=== PATIENT | female | born 1990 | race Caucasian/White ===

== ENCOUNTER 2020-08-10 08:08 | Outpatient (RCR) | payer OTHER, SELFPAY | END 2020-09-02 12:19 | disposition home or self-care (01) | LOC: HO.WCC 08:08 | PROVIDERS: Visit Provider Physician Assistant | DX: E11.628 Type 2 diabetes mellitus with other skin complications (principal); T21.22XD Burn of second degree of abdominal wall, subsequent encounter; T31.0 Burns involving less than 10% of body surface; E11.65 Type 2 diabetes mellitus with hyperglycemia | CPT/HCPCS: 99212; 99213 ==

== ENCOUNTER → 2020-09-11 11:12 | Outpatient (BNVA) | payer OTHER, SELFPAY | PROVIDERS: Visit Provider Physician Assistant | DX: E66.01 Morbid (severe) obesity due to excess calories (principal); E11.9 Type 2 diabetes mellitus without complications; Z68.42 Body mass index [BMI] 45.0-49.9, adult | CPT/HCPCS: 99202 ==

== ENCOUNTER 2020-09-17 11:27 | Outpatient (REF) | payer OTHER, SELFPAY ==
--- NOTE | ~2020-09-17 | XR_ITS ---
EXAMINATION: XR CHEST CLINICAL INFORMATION: Obesity. COMPARISON: None TECHNIQUE: 2 views of the chest were obtained. FINDINGS: No significant abnormality is noted involving the heart, lungs, mediastinum, bony thorax or soft tissues. XR/XR chest 2V IMPRESSION: Unremarkable examination.
--- NOTE | 2020-09-17 11:32 | ECG_ITS ---
Test Reason : E66.01 Blood Pressure : / mmHG Vent. Rate : 069 BPM Atrial Rate : 069 BPM P-R Int : 166 ms QRS Dur : 082 ms QT Int : 394 ms P-R-T Axes : 033 032 033 degrees QTc Int : 422 ms Normal sinus rhythm with sinus arrhythmia Normal ECG No previous ECGs available Referred By: Maame Nails Electronically Signed By:ROQUE DIZA
[2020-09-17 12:15] LABS: MANUAL DIFF FLAG NO
[2020-09-17 12:21] LABS: Basophils Percent Auto 0.2 % (0-2); Eosinophils Absolute Auto 0.2 X10*3/uL (0.0-0.4); Eosinophils Percent Auto 1.9 % (0-4); Hematocrit 34.4 % (37-47); Hemoglobin 10.2 g/dl (12.0-16.0); Imm Gran Abs Auto 0.03 X10*3/uL (0.00-0.03); Imm Gran Pct Auto 0.4 % (0.0-0.4); Lymphocytes Absolute Auto 1.9 X10*3/uL (1.2-4.9); Lymphocytes Percent Auto 23.7 % (20-40); Mean Corpuscular HGB Conc 29.7 g/dl (31.0-35.0); Mean Corpuscular Hemoglobin 21.9 pg (27.0-33.0); Mean Corpuscular Volume 73.8 fL (80-98); Monocytes Absolute Auto 0.4 X10*3/uL (0.1-1.2); Monocytes Percent Auto 4.8 % (2-11); Neutrophils Absolute Auto 5.6 X10*3/uL (2.0-8.3); Platelet Count 247 X10*3/uL (160-400); Red Blood Count 4.66 X10*6/uL (4.20-5.50); Red Cell Distribution Width 17.1 % (11.0-16.0); White Blood Count 8.1 X10*3/uL (4.8-10.8)
[2020-09-17 12:31] LABS: Estimated Average Glucose 134 mg/dL; Hemoglobin A1c % 6.3 %
[2020-09-17 12:45] LABS: Alanine Aminotransferase 20 U/L (0-31); Albumin Level 4.5 g/dL (3.5-5.0); Alkaline Phosphatase 163 U/L (39-117); Anion Gap 11 (12-20); Aspartate Amino Transferase 17 U/L (5-31); Bilirubin Total 0.3 mg/dL (0.0-1.0); Blood Urea Nitrogen 11 mg/dL (9-16); C Reactive Protein 2.73 mg/dL (< or = 0.50); Calcium 9.2 mg/dL (8.4-10.2); Carbon Dioxide 24 mmol/L (22-29); Chloride 106 mmol/L (96-108); Cholesterol 185 mg/dL; Estimated Glomerular Filt Rate > 60; Glucose Random 142 mg/dL (60-115); HDL Cholesterol 31 mg/dL; Iron 18 mcg/dL (30-160); LDL Cholesterol Calculated 128 mg/dl; Percent Iron Saturation 4 % (15-50); Potassium 4.4 mmol/L (3.3-5.1); Sodium 137 mmol/L (135-145); Total Iron Binding Capacity 424 mcg/dL (228-428); Total Protein 7.6 g/dL (6.5-8.0); Triglycerides 134 mg/dL; Unsaturated Iron Binding 406 ug/dL
[2020-09-17 13:06] LABS: Ferritin 23 ng/mL (10-122); Vitamin D 25-OH Total 26.8 ng/mL (>30)
[2020-09-17 13:24] LABS: Folate 15.6 ng/mL (> or = 4.0); Vitamin B12 315 pg/mL (200-900)
[2020-09-18 11:21] LABS: Insulin Level Total 15.5 uIU/mL
[2020-09-18 14:11] LABS: Calcium (PTHI) 9.5 mg/dL (8.6-10.2); PTHI 102 pg/mL (14-64)
[2020-09-20 17:51] LABS: Zinc 81 mcg/dL (60-130)
[2020-09-23 01:27] LABS: Vitamin A 39 mcg/dL (38-98)
[2020-09-23 10:47] LABS: Vitamin B1 7 nmol/L (8-30)
== END 2020-09-17 11:28 | disposition home or self-care (01) ==
LOC: HO.LAB 11:27
PROVIDERS: Visit Provider Physician Assistant
DX: E66.01 Morbid (severe) obesity due to excess calories (principal)
CPT/HCPCS: 36415; 71046; 80053; 80061; 82306; 82607; 82728; 82746; 83036; 83525; 83540; 83970; 84425; 84443; 84590; 84630; 85025; 86140; 93005

== ENCOUNTER 2020-09-29 09:29 | Outpatient (REF) | payer OTHER, SELFPAY ==
[2020-09-30 14:02] LABS: H Pylori Breath Test NOT DETECTED (NOT DETECTED)
== END 2020-09-29 09:30 | disposition home or self-care (01) ==
LOC: CF 09:29
PROVIDERS: Visit Provider Physician Assistant
DX: E66.01 Morbid (severe) obesity due to excess calories (principal)
CPT/HCPCS: 83013; 99211

== ENCOUNTER → 2020-10-01 08:09 | Outpatient (BNVA) | payer OTHER, SELFPAY | PROVIDERS: Visit Provider Physician Assistant ==

== ENCOUNTER → 2020-10-06 08:15 | Outpatient (BNVA) | payer OTHER, SELFPAY | PROVIDERS: Visit Provider Dietitian, Registered | DX: E66.01 Morbid (severe) obesity due to excess calories (principal); Z68.41 Body mass index [BMI] 40.0-44.9, adult | CPT/HCPCS: 97802 ==

== ENCOUNTER → 2020-10-16 13:46 | Outpatient (BNVA) | payer OTHER, SELFPAY | PROVIDERS: Visit Provider Surgery | DX: E66.01 Morbid (severe) obesity due to excess calories (principal); Z68.41 Body mass index [BMI] 40.0-44.9, adult | CPT/HCPCS: 99212 ==

== ENCOUNTER → 2020-11-12 15:05 | Outpatient (BNVA) | payer OTHER, SELFPAY | PROVIDERS: Visit Provider Surgery | DX: E66.01 Morbid (severe) obesity due to excess calories (principal); E11.9 Type 2 diabetes mellitus without complications; Z68.41 Body mass index [BMI] 40.0-44.9, adult | CPT/HCPCS: 99212 ==

== ENCOUNTER → 2020-11-27 08:26 | Outpatient (BNVA) | payer OTHER, SELFPAY | PROVIDERS: Visit Provider Dietitian, Registered | DX: E66.01 Morbid (severe) obesity due to excess calories (principal); Z68.41 Body mass index [BMI] 40.0-44.9, adult | CPT/HCPCS: 97803 ==

== ENCOUNTER → 2020-12-14 12:08 | Outpatient (BNVA) | payer OTHER, SELFPAY | PROVIDERS: Visit Provider Physician Assistant ==

== ENCOUNTER → 2020-12-28 09:24 | Outpatient (BNVA) | payer OTHER, SELFPAY | PROVIDERS: Visit Provider Surgery | DX: E66.01 Morbid (severe) obesity due to excess calories (principal); E11.9 Type 2 diabetes mellitus without complications; Z68.41 Body mass index [BMI] 40.0-44.9, adult | CPT/HCPCS: 99212 ==

== ENCOUNTER → 2021-01-01 13:31 | Outpatient (BNVA) | payer OTHER, SELFPAY | PROVIDERS: Visit Provider Physician Assistant ==

== ENCOUNTER 2021-01-06 10:11 | Outpatient (REF) | payer OTHER, SELFPAY ==
--- NOTE | ~2021-01-06 | US_ITS ---
EXAMINATION: US COMPLETE ABDOMEN WITH LIVER ELASTOGRAPHY CLINICAL INFORMATION: Morbid obesity. COMPARISON: None. TECHNIQUE: Real-time imaging of the abdominal viscera. Noninvasive ultrasound liver fibrosis assessment is performed using Juan Jose ElastPQ point quantification shear wave elastography (pSWE) with a C5-2 MHz transducer. Multiple elastography samples are obtained. FINDINGS: PANCREAS: Normal. The visualized pancreatic head and body are normal in appearance. The remainder of the pancreas is obscured from visualization by the overlying bowel gas. ABDOMINAL AORTA: The proximal, middle, and distal aortic segments are normal in caliber. INFERIOR VENA CAVA: Visualized portions are normal. LIVER: The liver demonstrates normal size, contour and increased echogenicity. No focal lesion or intrahepatic biliary duct dilatation. The right lobe measures 19.2 cm in length. The left lobe measures 9.8 cm in length. Portal flow is towards the liver (hepatopetal). Shear wave liver elastography median stiffness is 1.31 m/s (reference: normal median stiffness is 1.3 m/s or less). IQR/median stiffness to assess sampling precision is 0.12 (reference: good quality data set is IQR/median stiffness of 0.15 or less). GALLBLADDER: Normal. The gallbladder is physiologically distended without evidence of stones, sludge, polyps, wall thickening or pericholecystic fluid. COMMON BILE DUCT: Normal in caliber measuring 0.6 cm in diameter. RIGHT KIDNEY: Normal. No hydronephrosis. No renal calculi or focal parenchymal lesions. The kidney measures 12.4 cm in maximum dimension. LEFT KIDNEY: Normal. No hydronephrosis. No renal calculi or focal parenchymal lesions. The kidney measures 12.1 cm in maximum dimension. SPLEEN: Normal. The spleen measures 16.6 cm in maximum dimension. FREE FLUID: None. US/US abdomen comp w elastography IMPRESSION: 1. There is hepatosplenomegaly. 2. There is generalized increase in hepatic echotexture, consistent with fatty infiltration or hepatocellular disease. Please correlate clinically. No focal hepatic mass or intrahepatic biliary dilatation is seen. 3. Liver elastography: In the absence of other known clinical signs, measurements rule out compensated advanced chronic liver disease. If there are known clinical signs, further testing may be needed for confirmation. REFERENCE: Society of Radiologists in Ultrasound Liver Stiffness Thresholds (2020): LIVER STIFFNESS THRESHOLDS: *Liver Stiffness equal or less than 1.3 m/s: High probability of being normal. *Liver Stiffness less than 1.7 m/s: In the absence of other known clinical signs, rules out compensated advanced chronic liver disease. *Liver Stiffness 1.7-2.1 m/s: Suggestive of compensated advanced chronic liver disease but need further test for confirmation. *Liver Stiffness over 2.1 m/s: Rules in compensated advanced chronic liver disease. *Liver Stiffness over 2.4 m/s: Suggestive of clinically significant portal hypertension. QUALITY OF DATA SET: *IQR/Median value equal or less than 0.15 implies a quality data set. *IQR/Median value over 0.15 implies a poor quality data set. SIGNIFICANT CHANGE FROM PRIOR EXAM: Significant change if liver stiffness measurement is 10% or greater from prior exam. OTHER CONSIDERATIONS: The stage of liver fibrosis may be overestimated in the setting of acute hepatitis, liver inflammation, elevated liver function tests, hepatic vascular congestion, obstructive cholestasis, non-fasting state, and infiltrative diseases such as amyloidosis and lymphoma. In some patients with NAFLD, the liver stiffness thresholds for compensated advanced chronic liver disease may be lower. In causes other than viral hepatitis and NAFLD, liver stiffness thresholds are not well established.
== END 2021-01-06 10:12 | disposition home or self-care (01) ==
LOC: HO.US 10:11
PROVIDERS: Visit Provider Physician Assistant
DX: Z01.818 Encounter for other preprocedural examination (principal); E66.01 Morbid (severe) obesity due to excess calories; K21.9 Gastro-esophageal reflux disease without esophagitis
CPT/HCPCS: 76705; 76981

== ENCOUNTER 2021-01-08 09:59 | Outpatient (REF) | payer OTHER, SELFPAY ==
--- NOTE | ~2021-01-08 | FL_ITS ---
EXAMINATION: XR GI SERIES CLINICAL INFORMATION: Obesity COMPARISON: None TECHNIQUE: Upper GI was performed using thin and thick barium and effervescent granules. FINDINGS: Esophageal motility is normal. No hernia or reflux is seen. There is slightly delayed gastric emptying. Stomach and duodenum are otherwise normal. No fold thickening, mass, ulcer or stricture is seen. FLUOROSCOPY TIME: 0.6 minutes DOSE AREA PRODUCT: 8 Bertrand per centimeter squared. 17 saved fluoroscopic images and 3 overhead images FL/FL upper GI series IMPRESSION: Slightly delayed gastric emptying otherwise unremarkable exam.
== END 2021-01-08 10:00 | disposition home or self-care (01) ==
LOC: HO.XRAY 09:59
PROVIDERS: Visit Provider Physician Assistant
DX: Z01.818 Encounter for other preprocedural examination (principal); E66.01 Morbid (severe) obesity due to excess calories; Z68.41 Body mass index [BMI] 40.0-44.9, adult; K21.9 Gastro-esophageal reflux disease without esophagitis
CPT/HCPCS: 74240

== ENCOUNTER 2021-01-12 08:14 | Inpatient (IN) | payer OTHER, SELFPAY ==
[2021-01-06 09:18] VITALS: BMI 40.1
[2021-01-06 11:13] LABS: MANUAL DIFF FLAG NO
[2021-01-06 11:58] LABS: Basophils Percent Auto 0.3 % (0-2); Eosinophils Absolute Auto 0.1 X10*3/uL (0.0-0.4); Eosinophils Percent Auto 1.1 % (0-4); Hematocrit 36.1 % (37-47); Hemoglobin 10.8 g/dl (12.0-16.0); Imm Gran Abs Auto 0.02 X10*3/uL (0.00-0.03); Imm Gran Pct Auto 0.3 % (0.0-0.4); Lymphocytes Absolute Auto 1.6 X10*3/uL (1.2-4.9); Lymphocytes Percent Auto 24.6 % (20-40); Mean Corpuscular HGB Conc 29.9 g/dl (31.0-35.0); Mean Corpuscular Hemoglobin 23.4 pg (27.0-33.0); Mean Corpuscular Volume 78.1 fL (80-98); Mean Platelet Volume 11.8 fL (9.4-12.3); Monocytes Absolute Auto 0.3 X10*3/uL (0.1-1.2); Monocytes Percent Auto 4.9 % (2-11); Neutrophils Absolute Auto 4.5 X10*3/uL (2.0-8.3); Neutrophils Percent Auto 68.8 % (45-73); Platelet Count 193 X10*3/uL (160-400); Red Blood Count 4.62 X10*6/uL (4.20-5.50); Red Cell Distribution Width 14.8 % (11.0-16.0); White Blood Count 6.6 X10*3/uL (4.8-10.8)
[2021-01-06 12:15] LABS: Prothrombin Time 11.8 SEC (9.9-13.0)
[2021-01-06 12:17] LABS: Partial Thromboplastin Time 34.9 SEC (24.1-38.0)
[2021-01-06 12:22] LABS: Alanine Aminotransferase 11 U/L (0-31); Albumin Level 4.1 g/dL (3.5-5.0); Alkaline Phosphatase 143 U/L (39-117); Anion Gap 12 (12-20); Aspartate Amino Transferase 12 U/L (5-31); Bilirubin Total 0.6 mg/dL (0.0-1.0); Blood Urea Nitrogen 9 mg/dL (9-16); C Reactive Protein 1.55 mg/dL (< or = 0.50); Calcium 9.2 mg/dL (8.4-10.2); Carbon Dioxide 26 mmol/L (22-29); Chloride 106 mmol/L (96-108); Cholesterol 189 mg/dL; Creatinine Clr Calc Pharmacy 121.4; Estimated Average Glucose 137 mg/dL; Estimated Glomerular Filt Rate > 60; Glucose Random 127 mg/dL (60-115); HDL Cholesterol 30 mg/dL; Hemoglobin A1C 131.2083 umol/L; Hemoglobin A1c % 6.4 %; Iron 34 mcg/dL (30-160); LDL Cholesterol Calculated 132 mg/dl; Percent Iron Saturation 9 % (15-50); Potassium 4.5 mmol/L (3.3-5.1); Sodium 139 mmol/L (135-145); Total Iron Binding Capacity 375 mcg/dL (228-428); Triglycerides 138 mg/dL; Unsaturated Iron Binding 341 ug/dL
[2021-01-06 12:38] LABS: TSH reflex Free T4 1.69 uIU/mL (0.32-4.0)
--- NOTE | 2021-01-08 08:34 | HO.ANESPROP2 ---
Documented by User: Michelle Masters NP 01/08/21 08:35 HPI - Anesthesia Eval Consult details Narrative: 30yo F for Gastrectomy Sleeve, EGD, Poss Diaphragmatic Hernia, Poss Ventral Hernia, Poss open PMFSH Active Problems Active Problems: All Active Problems (Updated 01/06/21 @ 09:15 by Alejandra Moya RN) Morbid obesity (Acute) Diabetes mellitus (Acute) Anemia (Acute) Vitamin D deficiency (Acute) Adjustment disorder, unspecified (Acute) BMI 40.0-44.9, adult (Acute) Vitamin B1 deficiency (Acute) Past Medical History Medical History Anemia COVID-19 vaccine series completed Hx of diabetes mellitus Obesity Family History Family History Mother Hypertension Anxiety Father No problems noted. Brother No problems noted. Brother No problems noted. Brother No problems noted. Sister No problems noted. Son No problems noted. Son No problems noted. Son No problems noted. Daughter No problems noted. Daughter No problems noted. Daughter No problems noted. Surgical History Surgical History History of bilateral tubal ligation Hx of cholecystectomy Hx of emergency section Social History Social History Are you a primary nurse care manager to a significant other at home: No Do you presently have visiting nurse or other home services: No Alcohol intake: current Alcohol intake frequency: holidays/special occasions only Patient Tobacco Use Status: Never used Tobacco Use of substances other than those prescribed or required for medical reasons: No Have you been hit, kicked, punched, or otherwise hurt by someone within the past year? If so, by whom?: No Are you DNR?: No Advance Directives: No Advance Directives Information Provided: Yes (Mailed out w/ pre-op instructions) Advance Directives on File: No Recently lost weight without trying: No How much weight loss: 24-33 pounds Eating poorly because of decreased appetite: No Nutrition screen score: 3 Nutrition Risks: No Nutritional Risk Patient : No FDLMP: 12/20/20 : No Poor oral hygiene: No Meds Allergies Allergy/AdvReac Type Severity Reaction Status Date / Time oxycodone Allergy Severe Itching Verified 01/06/21 09:15 Home Medications Medication Instructions Recorded Confirmed Last Taken Type metformin 500 mg tablet 500 mg PO BID 09/08/20 01/06/21 Unknown History Exam Exam Date and Time: January 08, 2021 0834 Height,Weight and Vital Signs: Height 5 ft 4 in Weight 106.141 kg Pertinent Lab Results Pertinent Lab Results: Laboratory Tests 01/06/21 01/06/21 01/06/21 11:06 11:11 11:11 WBC 6.6 RBC 4.62 Hgb 10.8 L Hct 36.1 L MCV 78.1 L MCH 23.4 L MCHC 29.9 L RDW 14.8 Plt Count 193 MPV 11.8 Immature Gran % (Auto) 0.3 Neut % (Auto) 68.8 Lymph % (Auto) 24.6 [place] % (Auto) 4.9 Eos % (Auto) 1.1 Baso % (Auto) 0.3 Lymph # (Auto) 1.6 [place] # (Auto) 0.3 Eos # (Auto) 0.1 Baso # (Auto) 0.0 Abs Immat Gran (auto) 0.02 Absolute Neuts (auto) 4.5 Absolute Nucleated RBC 0.000 Nucleated RBC % (auto) 0.0 PT INR APTT Sodium 139 Potassium 4.5 Chloride 106 Carbon Dioxide 26 Anion Gap 12 BUN 9 Creatinine 0.82 Estim Creat Clear Calc 121.4 Estimated GFR > 60 Random Glucose 127 H Estimat Average Glucose Hemoglobin A1c % Calcium 9.2 Iron 34 TIBC 375 % Saturation 9 L Unsat Iron Binding 341 Total Bilirubin 0.6 AST 12 ALT 11 Alkaline Phosphatase 143 H C-Reactive Protein 1.55 H Total Protein 7.0 Albumin 4.1 Triglycerides 138 Cholesterol 189 LDL Cholesterol, Calc 132 HDL Cholesterol 30 25-OH Vitamin D Total 25.0 TSH Blood Type O Positive Antibody Screen NEGATIVE 01/06/21 01/06/21 01/06/21 11:11 11:11 11:11 WBC RBC Hgb Hct MCV MCH MCHC RDW Plt Count MPV Immature Gran % (Auto) Neut % (Auto) Lymph % (Auto) [place] % (Auto) Eos % (Auto) Baso % (Auto) Lymph # (Auto) [place] # (Auto) Eos # (Auto) Baso # (Auto) Abs Immat Gran (auto) Absolute Neuts (auto) Absolute Nucleated RBC Nucleated RBC % (auto) PT 11.8 INR 1.0 APTT 34.9 Sodium Potassium Chloride Carbon Dioxide Anion Gap BUN Creatinine Estim Creat Clear Calc Estimated GFR Random Glucose Estimat Average Glucose 137 Hemoglobin A1c % 6.4 Calcium Iron TIBC % Saturation Unsat Iron Binding Total Bilirubin AST ALT Alkaline Phosphatase C-Reactive Protein Total Protein Albumin Triglycerides Cholesterol LDL Cholesterol, Calc HDL Cholesterol 25-OH Vitamin D Total TSH 1.69 Blood Type Antibody Screen Narrative Narrative: EKG 09/2020 Vent. Rate : 069 BPM ? ? Atrial Rate : 069 BPM ?? P-R Int : 166 ms? QRS Dur : 082 ms ? ? QT Int : 394 ms ? ? ? P-R-T Axes : 033 032 033 degrees ?? QTc Int : 422 ms ? Normal sinus rhythm with sinus arrhythmia Normal ECG No previous ECGs available Assessment and Plan Assessment Anesthesia Assessment: Chart Reviewed Documented by User: Fallon Alexander MD 01/12/21 10:14 [facility] Active Problems Active Problems: All Active Problems (Updated 01/06/21 @ 09:15 by Alejandra Moya RN) Morbid obesity (Acute). Denies h/o JACKY Diabetes mellitus (Acute) Anemia (Acute) Vitamin D deficiency (Acute) Adjustment disorder, unspecified (Acute) BMI 40.0-44.9, adult (Acute) Vitamin B1 deficiency (Acute) Past Medical History Medical History Anemia COVID-19 vaccine series completed Hx of diabetes mellitus Obesity Family History Family History Mother Hypertension Anxiety Father No problems noted. Brother No problems noted. Brother No problems noted. Brother No problems noted. Sister No problems noted. Son No problems noted. Son No problems noted. Son No problems noted. Daughter No problems noted. Daughter No problems noted. Daughter No problems noted. Family history of problems with anesthesia: No Surgical History Surgical History History of bilateral tubal ligation Hx of cholecystectomy Hx of emergency section History of Problems with Anesthesia: No Social History Social History Are you a primary nurse care manager to a significant other at home: No Do you presently have visiting nurse or other home services: No Alcohol intake: current Alcohol intake frequency: holidays/special occasions only Patient Tobacco Use Status: Never used Tobacco Use of substances other than those prescribed or required for medical reasons: No Have you been hit, kicked, punched, or otherwise hurt by someone within the past year? If so, by whom?: No Are you DNR?: No Advance Directives: No Advance Directives Information Provided: Yes (Mailed out w/ pre-op instructions) Advance Directives on File: No Recently lost weight without trying: No How much weight loss: 24-33 pounds Eating poorly because of decreased appetite: No Nutrition screen score: 3 Nutrition Risks: No Nutritional Risk Patient : No FDLMP: 12/20/20 : No Poor oral hygiene: No Meds Allergies Allergy/AdvReac Type Severity Reaction Status Date / Time oxycodone Allergy Severe Itching Verified 01/06/21 09:15 Home Medications Medication Instructions Recorded Confirmed Last Taken Type metformin 500 mg tablet 500 mg PO BID 09/08/20 01/06/21 Unknown History Exam Height,Weight and Vital Signs: Height 5 ft 4 in Weight 106.141 kg Vital Signs Temp Pulse Resp BP Pulse Ox 01/12/21 08:23 98 F 78 18 122/67 98 Pertinent Lab Results Pertinent Lab Results: Laboratory Tests 01/06/21 01/06/21 01/06/21 11:06 11:11 11:11 WBC 6.6 RBC 4.62 Hgb 10.8 L Hct 36.1 L MCV 78.1 L MCH 23.4 L MCHC 29.9 L RDW 14.8 Plt Count 193 MPV 11.8 Immature Gran % (Auto) 0.3 Neut % (Auto) 68.8 Lymph % (Auto) 24.6 [place] % (Auto) 4.9 Eos % (Auto) 1.1 Baso % (Auto) 0.3 Lymph # (Auto) 1.6 [place] # (Auto) 0.3 Eos # (Auto) 0.1 Baso # (Auto) 0.0 Abs Immat Gran (auto) 0.02 Absolute Neuts (auto) 4.5 Absolute Nucleated RBC 0.000 Nucleated RBC % (auto) 0.0 PT INR APTT Sodium 139 Potassium 4.5 Chloride 106 Carbon Dioxide 26 Anion Gap 12 BUN 9 Creatinine 0.82 Estim Creat Clear Calc 121.4 Estimated GFR > 60 Random Glucose 127 H Estimat Average Glucose Hemoglobin A1c % Calcium 9.2 Iron 34 TIBC 375 % Saturation 9 L Unsat Iron Binding 341 Total Bilirubin 0.6 AST 12 ALT 11 Alkaline Phosphatase 143 H C-Reactive Protein 1.55 H Total Protein 7.0 Albumin 4.1 Triglycerides 138 Cholesterol 189 LDL Cholesterol, Calc 132 HDL Cholesterol 30 25-OH Vitamin D Total 25.0 TSH Blood Type O Positive Antibody Screen NEGATIVE 01/06/21 01/06/21 01/06/21 11:11 11:11 11:11 WBC RBC Hgb Hct MCV MCH MCHC RDW Plt Count MPV Immature Gran % (Auto) Neut % (Auto) Lymph % (Auto) [place] % (Auto) Eos % (Auto) Baso % (Auto) Lymph # (Auto) [place] # (Auto) Eos # (Auto) Baso # (Auto) Abs Immat Gran (auto) Absolute Neuts (auto) Absolute Nucleated RBC Nucleated RBC % (auto) PT 11.8 INR 1.0 APTT 34.9 Sodium Potassium Chloride Carbon Dioxide Anion Gap BUN Creatinine Estim Creat Clear Calc Estimated GFR Random Glucose Estimat Average Glucose 137 Hemoglobin A1c % 6.4 Calcium Iron TIBC % Saturation Unsat Iron Binding Total Bilirubin AST ALT Alkaline Phosphatase C-Reactive Protein Total Protein Albumin Triglycerides Cholesterol LDL Cholesterol, Calc HDL Cholesterol 25-OH Vitamin D Total TSH 1.69 Blood Type Antibody Screen Laboratory Results - last 24 hr 01/12/21 01/12/21 08:18 08:32 POC Glucose 96 COVID-19 (TANISHA) Negative COVID-19 Clin Com See Note Airway Mallampati Class: II TM Dist: >3cm Neck ROM: Full Heart: RRR Lungs: CTAB Assessment and Plan Assessment Anesthesia Assessment: Anesthesia Plan Discussed Final Anesthetic Review Family History of Problems with Anesthesia: No History of Problems with Anesthesia: No NPO: Yes ASA Class: III Final Preanesthetic Review: No Changes in Pt Med Stat, Meds/Allgs Chart Reviewed, Consent Obtained/Reviewed and Anes Risks/Benef Reviewed Patient Risk: Intermediate Procedure Risk: Intermediate Assessment/Block/Sedation in SS: Assess/Block/Sedation-SS Anesthetic Plan Anesthetic Plan: GA Disposition: Standard PACU and Inp. Admit - Standard Bed
--- NOTE | 2021-01-09 14:44 | MHC.SHP ---
Pre-Procedural Eval Section A Date of Service: 01/09/21 The patient is an INPATIENT: Yes The History & Physical has been completed within 30 days and I have reviewed it.: Yes Section B Chief Complaint: Morbid Severe Obesity Relevant Family History (Specify if Yes): No Relevant Social History: None Present Medications: None Medical History: No relevant PMH History of Previous Operations: No relevant previous surgery Allergies: Allergies Allergy/AdvReac Type Severity Reaction Status Date / Time oxycodone Allergy Severe Itching Verified 01/06/21 09:15 Review of Systems Sugical H&P ROS: Negative: Constitution, Cardiovascular, Respiratory, Neurological, Psychiatric, Hem-Onc, Allergic/Immunologic, Gastrointestinal, Genitourinary, Musculoskeletal, Integumentary, Endocrine and Eyes/Ears/Nose/Throat Exam Surgical H&P Exam: Normal: HEENT, Normal: Heart, Normal: Lungs, Normal: Extremities, Normal: Abdomen, Normal: Skin and Normal: Neurological Plan Diagnosis/Plan: Unchanged I have reviewed the history and physical and performed a pertinent physical examination on my patient. No changes have occurred unless specified.
[2021-01-12] VITALS (17 sets, daily range): BP systolic 122–158; BP diastolic 67–95; PULSE 50–94; RESP 16–18; TEMP 36.4–37.1; O2SAT 95–99
[2021-01-12 08:38] LABS: Glucose, Whole Blood 96 mg/dL (60-115)
[2021-01-12] MEDS: Lactated Ringers 1,000 ML 100 ML IVCONT ×2 (08:49→17:27)
[2021-01-12] MEDS: Lactated Ringers 1,000 ML 999 ML IV (08:49)
[2021-01-12 08:51] LABS: COVID-19 Test Negative (Negative)
--- NOTE | 2021-01-12 13:02 | PM.DS ---
DS: Providers Provider Date of Service: 01/13/21 Date of admission: 01/12/21 08:14 Primary care physician: Unknown Physician DS: Summary Hospital Course Hospital Course: ADMITTING DIAGNOSIS: morbid obesity, NIDDM DISCHARGE DIAGNOSIS: same, s/p laparoscopic sleeve gastrectomy PAST SURGICAL HISTORY: lap cholecystectomy, section, BTL PROCEDURE: upper endoscopy, laparoscopic sleeve gastrectomy hernia DISCHARGE SUMMARY: History of Present Illness: The patient is a 30 year-old woman with a BMI of 45.4 kg/m2 and associated co-morbidities as described above. The patient had extensive work-up,lost 30.6 lbs preoperatively and was electively scheduled for laparoscopic, possible open sleeve gastrectomy and gastropexy. Risks and complications of the surgery were discussed with the patient in advance, particularly the possibility of , pulmonary embolism, anastomotic leak, bleeding, bowel injury, GERD, cardiac, renal or pulmonary complications. The patient understood all the risks and was in agreement with the surgical plan. Hospital Course: The patient underwent an uneventful laparoscopic sleeve gastrectomy with gastropexy on the day of admission. Postoperatively, the patient was transferred to the surgical floor. The patient received IV Acetaminophen and IV dilaudid for pain control. Patient was started on bariatric phase 1 diet POD #0. On postoperative day one, the patient was feeling well without nausea, vomiting, fevers, or tachycardia. The patient had some mild incisional pain and the abdomen was soft. On the morning of postoperative day one, the patient was continued on 1 ounce of water or ice every half hour. During the day, the patient did fairly well, having some incisional pain, but able to ambulate adequately and to tolerate liquids well. Since the patient is doing well, we decided that the patient was ready to be discharged. The patient was given instructions to follow-up with me next week and to call my office for any fever over 101, persistent abdominal pain, nausea, vomiting, GERD, symptoms of DVT such as calf tenderness, or leg swelling, or pulmonary embolism such as chest pain or shortness of breath. The patient was also instructed to drink 40-60 ounces of liquids per day using the 1-ounce cups. The patient had been given prescriptions for Tylenol for pain, Zofran prn for nausea, and pantoprazole and carafate previously. The patient was encouraged to ambulate and use the incentive spirometer. The patient was allowed to shower, but no baths, and encouraged to stay active at home. All of these instructions were given to the patient personally. All questions were answered and the patient understood all instructions, the instructions were also given to the patient in print. Time Spent with Patient Time attestation: Total time spent providing and/or coordinating discharge services: Discharge coordination time: Less than 30 minutes Quality: Stroke Does the patient have a stroke diagnosis?: No Physical Exam Vital Signs: Vital Signs: Last Vital Signs Temp 98 F 01/12/21 08:23 Pulse 78 01/12/21 08:23 Resp 18 01/12/21 08:23 BP 122/67 01/12/21 08:23 Pulse Ox 98 01/12/21 08:23 Body Mass Index 40.1 DS: Data Data Completed and Pending Pending studies at discharge: Pending at discharge 01/12/21 12:13 Surgical [PTH] Routine Labs on day of discharge: Laboratory Results - last 24 hr 01/12/21 01/12/21 08:18 08:32 POC Glucose 96 COVID-19 (TANISHA) Negative COVID-19 Clin Com See Note Discharge Plan Discharge Anticipated Discharge Date/Time: 01/13/21 22:58 Patient Disposition: Home, Self-Care Discharge Diagnosis: s/p sleeve gastrectomy Referrals: Physician,Unknown J [Primary Care Provider] - 1 Week Discharge Medications: Continued pantoprazole 40 mg tablet,delayed release (DR/EC) 40 mg PO DAILY Qty: 30 RF: 2 sucralfate 100 mg/mL suspension 10 ml PO BID Qty: 400 RF: 2 ondansetron HCl [Zofran] 4 mg tablet 4 mg PO Q12H Qty: 20 RF: 0 Held metformin 500 mg tablet 500 mg PO BID RF: 0 Hold Instructions: Discuss restart with Dr Patel Discontinued ferrous sulfate 325 mg (65 mg iron) tablet 325 mg PO DAILY Qty: 30 RF: 6 cholecalciferol (vitamin D3) 50 mcg (2,000 unit) capsule 50 mcg PO DAILY Qty: 30 RF: 6 multivitamin Tablet 1 tab PO DAILY Qty: 30 RF: 6 thiamine HCl (vitamin B1) 100 mg tablet 100 mg PO DAILY Qty: 30 RF: 0 polyethylene glycol 3350 [Miralax] 17 gram powder in packet 17 g PO DAILY Qty: 14 RF: 0 Discharge Orders: Discharge Order (Routine); Ordered 01/13/21 Ordered By: Aashish Patel Diet: other Activity on Discharge: No heavy lifting Stand Alone Forms: Patient Portal Discharge page Care Plan Goals: weight loss Health Concerns: morbid obesity Plan of Treatment: No tub baths, sex or returning to work until discussed at first post op appointment. No exercise, alcohol, tobacco or illegal drug use. Continue to use incentive spirometer hourly while awake. Walk in home for 5- 10 minutes every 2 hours during the first week. Continue phase 1 diet today and start phase 2 diet tomorrow morning. Follow all instructions in the bariatric handbook and call with any questions. 1. Please call your doctor or come back to the emergency room should any new symptoms arise. 2. You will receive a courtesy call from [facility] 24-48 hours after discharge. 3. Activity: abstain from alcohol, practice limited stair climbing, no bending, no driving, no exercise, no illicit substances, no lifting, no sex, no tub bath, no work. 4. Diet: continue as discussed with Dr. Patel. 5. Dressing Change/Wound Care: Your incision is covered by surgical glue. If the area is tender, you may apply an ice pack for short intervals (no more than 20 minutes on, followed by at least 20 minutes off). Do not apply heat. Do not use creams, lotions, or topical antibiotics unless instructed to do so by your surgeon. These can cause infection or allergic reaction. 6. Call your doctor if: - Your temperature exceeds 101.5 F - You experience excessive pain or swelling - You have an unexpected reaction to medication - You have excessive bleeding - You experience continued vomiting/nausea - Your incision begins to separate - Your incision shows signs of infection such as increased redness, swelling, excessive pain, heat, or drainage (light blood or clear fluid is normal) 7. General instructions: No lifting greater than 5 lbs for the next 4 weeks[address] driving within 24 hours of taking narcotic pain medications. If you do not move your bowels in the next 2 days, please take milk of magnesia over the counter. Please follow the post op diet and do not advance your diet until you are seen in the office in about 2 weeks. Please walk around your home every hour or two to prevent blood clots from forming in your legs. You do not need to wake from sleeping to walk. Please sleep in a bed or couch to prevent kinking at the hips and knees. Please take your incentive spirometer (your lung batch freezer) home with you and use it for the next few days to prevent pneumonias. You may shower, no hot tubs, baths or swimming pools. Please call the office with any questions or concerns such as increasing abdominal pain, fever, chills, shortness of breath, chest pain, leg pain or swelling, or redness or drainage from your incisions. Please stay on stage 3 diet which includes sugar free clear liquids such as ice pops and jello and broth and crystal light. Avoid all carbonation. Please drink 3 protein shakes with at least 25-30 grams of protein daily or 3 of the Celebrate 4:1 shakes which can be purchased in our office. The Celebrate shakes have all of the bariatric vitamins you need if you consume these shakes. If you are drinking other protein shakes, you will need to purchase the Celebrate multivitamins and calcium that we provide in the office (they will provide all the vitamins you need). Please make sure you are consuming at least 40-60 ounces of water in addition to your 3 protein shakes daily. Do not hesitate to contact the office with any questions at . The patient's medical history has been reviewed and they are considered low risk for post op DVT and therefore DVT prophylaxis is not considered necessary. Travel after surgery was reviewed. The patient has not disclosed any travel plans during the first 30 days after surgery and they have been advised that within the first 30 days after surgery any bus, plane, train or car travel over 2 hours in duration is contraindicated due to the possibility of developing blood clots from immobility. Any travel, needs to include periods of ambulation of 10 minutes in duration every 2 hours. The patient was instructed to discuss any plans for travel during this period with their bariatric surgeon. Assessment: stable, post op sleeve gastrectomy
--- NOTE | 2021-01-12 13:08 | PM.OP ---
Brief Operative Note Date of Service: 01/12/21 Pre-op diagnosis: Severe obesity with comorbidities (see below) Post-op diagnosis: same Procedure: INITIAL PATIENT BMI ON PRESENTATION AT OUR OFFICE: 45.4 kg/m2 LAST BMI BEFORE SURGERY: 39.6 kg/m2 COMORBIDITIES: non-insulin dependent diabetes, liver steatosis, delayed gastric emptying, hepato-splenomegaly The patient participated in an intensive weekly lifestyle ?intervention and exercise program during which the patient ?has lost between the initial office visit and the last preoperative visit 30.6lbs, or 11.55% of initial actual body weight. The patient met the BMI-criteria for bariatric surgery based on the BMI on initial presentation. The patient should not be penalized for achieving such weight loss because ?it is not sustainable long-term without surgical intervention and it was achieved in preparation for bariatric surgery ?under my direction and based on my published research ([email or web address]) ?that a 10% preoperative weight loss improves long-term weight loss after surgery and reduces perioperative complications.? Insurance carriers such as [facility] have endorsed my recommendations ?and have included in their policies criteria to include a 10% preoperative weight loss requirement. PROCEDURE: Esophago-gastroscopy, laparoscopic sleeve gastrectomy and laparoscopic gastropexy INDICATIONS: This is a 30 year-old female who was electively scheduled for laparoscopic, possibly open sleeve gastrectomy. The risks and complications of the procedure were discussed with the patient in advance, particularly the possibility of ; pulmonary embolism; staple line leak; bleeding; GERD; cardiac, pulmonary, or renal complications; as well as long-term problems such as insufficient weight loss, vitamin deficiency, strictures, or ulcers. The patient understood all the risks, and was in agreement to proceed with surgery. DESCRIPTION OF PROCEDURE: After informed consent was obtained from the patient, the patient was given preoperative antibiotics, and was transferred to the operating room. After successful induction of general anesthesia, pneumatic compressive devices were placed on both lower extremities. An upper endoscopy was performed next. The oropharynx and esophagus appeared to be within normal limits. There was no diaphragmatic hernia present consistent with the findings of the preoperative upper GI. The stomach was entered. Then after all fluid and air were suctioned and the stomach was fully decompressed, the scope was withdrawn and secured in the mid esophagus. The patient was then prepped and draped in the usual sterile manner, and abdominal access was established at the right upper quadrant with the Balbina technique. A 12 mm blunt port was inserted, and the abdomen was insufflated with CO2 to a pressure of 15 mmHg. Under direct visualization, additional ports were placed, specifically two 5 mm Versi-step ports to the left upper quadrant, and a 5 mm Versi-Step port to the right upper quadrant. 1% lidocaine plain was used to infiltrate all port sites as well as all fascia defects. Following that, the patient was placed in a steep reverse Trendelenburg position. An additional 5 mm port was placed to the right flank for the Mediflex retractor that was used to retract the left lobe of the liver. The gastro-esophageal fat pad was opened with the ultrasonic device (Thunderbeat, Olympus) and the anterior esophagus and hiatus were exposed. The angle of His was opened with the ultrasonic device the fundus of the stomach from any diaphragmatic and splenic attachments. I then opened the gastrocolic ligament between the transverse colon and the greater curvature of the stomach with the ultrasonic device to enter the lesser sac and facilitate the ligation of the short gastric vessels. I started at a mid-point along the greater curvature and using the Thunderbeat, all short gastric vessels were divided all the way to the angle of His until the left citlaly was completely dissected at its entirety. I then divided the gastro-colic ligament distally to a distance of about 3-4 cm proximal to the esophagus.? The stomach was then divided transversely with one Endo JAY-45 purple, two JAY-45 orange loads and three JAY-60 articulating orange loads using the AEON staplers and loads. Every effort was made that the gastric sleeve had a tubular shape and an even caliber throughout. Once the sleeve resection was completed, the staple line of the gastric sleeve was reinforced with Hemoclips. The resected stomach was retrieved without difficulty from the Balbina port. A gastropexy was then performed in order to prevent postoperative GERD and partial gastric volvulus. Several interrupted 2.0 Surgidac sutures were placed between the sleeve's staple line and the previously divided greater omentum and gastro-colic ligament using the Endo-Stitch device. ?An upper endoscopy was performed. There was no narrowing at the GE junction. The scope was easily advanced all the way to the pylorus which was clearly visualized. There was no narrowing anywhere and the sleeve's caliber was even throughout. The sleeve's staple line was inspected and there was no evidence of ischemia, bleeding or dehiscence. At that point the gastroscope was withdrawn from the patient?s mouth while we were decompressing the bowel and the stomach from any remaining air. I looked into the lesser sac to see how the sleeve was situating and it was situating well. There was no bleeding from the staple line, spleen, or short gastric vessels. The Mediflex retractor was removed, and the undersurface of the liver was inspected and there was no bleeding. The patient was placed in supine position. I closed the fascial defect of the 12 mm port site with a figure of eight #1 Polysorb suture. Then 100 cc 0.25 % Marcaine plain with 10 mg of Dexamethasone were used to infiltrate the fascial closure as well as all skin incisions. At this point, the abdomen was deflated, all ports were removed under direct vision, and no bleeding was noted from any of the port sites. The skin incisions were irrigated with saline and were closed with 4-0 absorbable monofilament sutures. Steri-Strips and OpSites were used to cover all incisions. The patient was extubated and was transferred in stable condition to the recovery room for further care. I was present and performed all gandhi parts of the procedure. Jesu was the computer assistant. There were no residents to assist with this case. Huagn Patel MD, PhD, FACS Surgeon: Aashish Patel MD Anesthesia: GETA Was an Low Voltage Technician used for this Procedure?: Yes Low Voltage Technician: Maame Nails Estimated blood loss (mL): 10 IV fluids (mL): 2,500 Urine output (mL): 0 (No Pal to record) Pathology: other (Stomach) Condition: stable Disposition: PACU
--- NOTE | 2021-01-12 13:14 | PM.PNGS ---
Subjective Subjective Date of Service: 01/13/21 Interval history: Patient has mild incisional pain, but was able to ambulate and use the incentive spirometer. She is tolerating phase 1 bariatric diet Physical Exam Vital Signs: Vital Signs: Last Vital Signs Temp 98.0 F 01/12/21 12:59 Pulse 74 01/12/21 13:09 Resp 18 01/12/21 13:09 BP 152/82 H 01/12/21 13:09 Pulse Ox 99 01/12/21 13:09 Body Mass Index 40.1 GI: Inspection: Yes normal to inspection and Yes incision (clean, dry and intact) Extrem: Right lower extremity: normal to inspection (no calf tenderness) Left lower extremity: normal to inspection (no calf tenderness) Procedures Date of Service Date of Service: 01/13/21 Progress Note: A&P Assessment and plan (1) S/P laparoscopic sleeve gastrectomy: Status: Acute Assessment and Plan: s/p laparoscopic sleeve gastrectomy and gastropexy Doing well Check am labs. If OK, will discharge home? (2) Obesity: Status: Acute (3) BMI 39.0-39.9,adult: Status: Acute (4) Diabetes mellitus: Status: Acute (5) Delayed gastric emptying: Status: Acute (6) Hepatosplenomegaly: Status: Acute Fall Risk Details Current Medications: Current Medications Fentanyl (Fentanyl Citrate/Pf 100 Mcg/2 Ml Vial) 25 mcg IVPUSH Q5M PRN; Protocol PRN Reason: Pain, Moderate (Pain Scale 4-6 Hydromorphone HCl (Hydromorphone Hcl 0.5 Mg/0.5 Ml Syringe) 0.25 mg IVPUSH Q5M PRN; Protocol PRN Reason: Pain, Severe (Pain Scale 7-10) Lactated Ringer's (Lr) 1,000 mls @ 100 mls/hr IVCONT .Q10H DEANNA Last Admin: 01/12/21 08:49 Dose: 100 mls/hr Documented by: Promethazine HCl 6.25 mg/ (Sodium Chloride) 50.25 mls @ 201 mls/hr IV ONCE PRN PRN Reason: Nausea and Vomiting Ondansetron HCl (Ondansetron Hcl 4 Mg/2 Ml Vial) 4 mg IVPUSH ONCE PRN PRN Reason: Nausea and Vomiting Time Spent With Patient Time: Total time spent is greater than 50% in coordination of care (as documented) at patient's floor/unit and/or counseling patient: Time with patient: less than 15 minutes Quality Stroke Does the patient have a stroke diagnosis?: No VTE Prior VTE?: No VTE Risk Level:: Surgical - moderate VTE Device Contraindication: N/A - Device Ordered VTE Drug Contraindication: Treatment Not Indicated
[2021-01-12 13:25] LABS: Hematocrit 34.5 % (37-47); Hemoglobin 10.7 g/dl (12.0-16.0)
[2021-01-12] MEDS: ondansetron HCL 4 MG/2 ML VIAL IVPUSH ×2 (13:38→20:34)
[2021-01-12] MEDS: Metoclopramide HCl 10 MG/2 ML VIAL IVPUSH (13:49)
[2021-01-12 13:50] LABS: Anion Gap 16 (12-20); Blood Urea Nitrogen 9 mg/dL (9-16); Carbon Dioxide 17 mmol/L (22-29); Chloride 108 mmol/L (96-108); Creatinine Clr Calc Pharmacy 121.4; Estimated Glomerular Filt Rate > 60; Glucose Random 134 mg/dL (60-115); Sodium 137 mmol/L (135-145)
[2021-01-12] MEDS: Famotidine/PF 20 MG/2 ML VIAL IVPUSH ×2 (13:50→20:34)
[2021-01-12 14:10] LABS: Calcium 8.5 mg/dL (8.4-10.2)
[2021-01-12] MEDS: ceFAZolin Sodium/Dextrose,Iso 2 GM/50 ML PIGGYBACK IV (17:27)
--- NOTE | 2021-01-12 17:58 | PC.NURSE ---
patient complaining of nausea. vomited small amount of brown blood tinged gastric contents. color improved reports some improvement in nausea. dr. couch updated ongoing nausea received multiple antiemetics post op reviewed medications given. new orders to be placed.
[2021-01-12] MEDS: diphenhydrAMINE HCL 50 MG/ML VIAL 25 MG IVPUSH (18:09)
[2021-01-12 18:58] LABS: Glucose, Whole Blood 181 mg/dL (60-115)
[2021-01-12] MEDS: 0.9 % Sodium Chloride Flush 3 ML SYRINGE IVFLUSH (23:02)
[2021-01-13] MEDS: Lactated Ringers 1,000 ML 100 ML IVCONT (02:41)
--- NOTE | 2021-01-13 03:31 | PC.NURSE ---
Pts HR running in the 50's. Pt states her norm is 70's. Pt is asymptomatic. Denies dizziness/weakness. Has been ambulating in the halls. Tolerating Phase I diet and denying need for pain meds. IV fluids infusing as ordered. Will continue to monitor.
[2021-01-13 04:00] VITALS: BP 133/76; PULSE 49; RESP 16; TEMP 36.2; O2SAT 99
--- NOTE | 2021-01-13 04:45 | PC.NURSE ---
AM HR 49. Giancarlo Amador notified of HR's running in the 50's and down to 49 this am. Pt asymptomatic. No new orders.Will continue to monitor and pass along in report.
[2021-01-13] MEDS: ondansetron HCL 4 MG/2 ML VIAL IVPUSH (05:12)
[2021-01-13 06:09] LABS: MANUAL DIFF FLAG NO
[2021-01-13 06:14] LABS: Basophils Percent Auto 0.1 % (0-2); Hematocrit 31.1 % (37-47); Hemoglobin 9.8 g/dl (12.0-16.0); Imm Gran Abs Auto 0.03 X10*3/uL (0.00-0.03); Imm Gran Pct Auto 0.3 % (0.0-0.4); Lymphocytes Absolute Auto 1.1 X10*3/uL (1.2-4.9); Lymphocytes Percent Auto 12.1 % (20-40); Mean Corpuscular HGB Conc 31.5 g/dl (31.0-35.0); Mean Corpuscular Hemoglobin 24.4 pg (27.0-33.0); Mean Corpuscular Volume 77.6 fL (80-98); Mean Platelet Volume 11.5 fL (9.4-12.3); Monocytes Absolute Auto 0.4 X10*3/uL (0.1-1.2); Monocytes Percent Auto 4.7 % (2-11); Neutrophils Absolute Auto 7.5 X10*3/uL (2.0-8.3); Neutrophils Percent Auto 82.8 % (45-73); Platelet Count 188 X10*3/uL (160-400); Red Blood Count 4.01 X10*6/uL (4.20-5.50); White Blood Count 9.1 X10*3/uL (4.8-10.8)
[2021-01-13 06:29] LABS: Anion Gap 15 (12-20); Blood Urea Nitrogen 8 mg/dL (9-16); Calcium 8.7 mg/dL (8.4-10.2); Carbon Dioxide 17 mmol/L (22-29); Chloride 109 mmol/L (96-108); Creatinine Clr Calc Pharmacy 124.4; Estimated Glomerular Filt Rate > 60; Glucose Random 140 mg/dL (60-115); Potassium 4.5 mmol/L (3.3-5.1); Sodium 136 mmol/L (135-145)
[2021-01-13 07:34] VITALS: BP 128/81; PULSE 50; RESP 17; TEMP 36.1; O2SAT 99
[2021-01-13 08:10] LABS: Glucose, Whole Blood 129 mg/dL (60-115)
--- NOTE | 2021-01-13 09:42 | MHC.CM.PN ---
EMR REVIEWED, PT ADMITTED S/P LAP SLEEVE GASTRECTOMY, CM MET W/PT JUST PRIOR TO HER D/CING, PT IS INDEPENDENT W/ALL CARE, HAS DIABETIC SUPPLIES ONLY DME AND NO HOME SERVICES, PT REPORTS HER PCP IS AT [facility] AND REPORTS HER FIRST NAME IS ADY, PT DENIES HAVING HCP AND DECLINES SHE IS READY TO GO HOME. D/C PLAN: HOME SELF-CARE W/UOTPT FOLLOW-UP W/SURGEONNAKUL FOR TRANSPORT
--- NOTE | 2021-01-13 15:12 | HO.POSTANES ---
Post Anesthesia Evaluation Post Anesthesia Evaluation Vital Signs: Vital Signs Temp Pulse Resp BP Pulse Ox 01/13/21 07:34 97.0 F 50 17 128/81 99 01/13/21 04:00 97.2 F 49 L 16 133/76 99 Anesthesia: General Endotracheal-GETA Mental Status: Awake Pain Control: Satisfactory Nausea/Vomiting: None Hydration: Adequate Anesthesia-Related Issues: No Anes. Related Issues
== END 2021-01-13 10:03 | disposition home or self-care (01) | DRG 403 ==
LOC: HO.SSSA 08:20 → HO.S3 15:28 → HO.SSSA 16:23 → HO.S3 17:39
PROVIDERS: Physician Assistant; Surgery; Admitting Provider Surgery; Visit Provider Surgery
PROC: 0DB64Z3 Excision of Stomach, Percutaneous Endoscopic Approach, Vertical (ICD-10-PCS; CPT 43845; principal; 2021-01-12 10:10)
DX: E66.01 Morbid (severe) obesity due to excess calories (principal); K76.0 Fatty (change of) liver, not elsewhere classified; R16.2 Hepatomegaly with splenomegaly, not elsewhere classified; K30 Functional dyspepsia; Z68.39 Body mass index [BMI] 39.0-39.9, adult; E11.9 Type 2 diabetes mellitus without complications; Z20.822 Contact with and (suspected) exposure to COVID-19; Z79.84 Long term (current) use of oral hypoglycemic drugs; Z79.899 Other long term (current) drug therapy
CPT/HCPCS: 36415; 80048; 80053; 80061; 82306; 82947; 83036; 83540; 84443; 85014; 85018; 85025; 85610; 85730; 86140; 86850; 86900; 86901; 87635; 88307; 88342; 99024; A4649; J0131; J0690; J1100; J1170; J1200; J2250; J2405; J2550; J2765; J3010

== ENCOUNTER → 2021-01-18 08:29 | Outpatient (BNVA) | payer OTHER, SELFPAY | PROVIDERS: Visit Provider Surgery | DX: E66.9 Obesity, unspecified (principal); Z68.37 Body mass index [BMI] 37.0-37.9, adult | CPT/HCPCS: 99212 ==

== ENCOUNTER → 2021-02-19 08:05 | Outpatient (BNVA) | payer OTHER, SELFPAY | PROVIDERS: Visit Provider Surgery | DX: E66.9 Obesity, unspecified (principal); Z68.34 Body mass index [BMI] 34.0-34.9, adult | CPT/HCPCS: 99212 ==

== ENCOUNTER → 2021-03-17 08:10 | Outpatient (BNVA) | payer OTHER, SELFPAY | PROVIDERS: Visit Provider Surgery | DX: E66.9 Obesity, unspecified (principal); Z68.32 Body mass index [BMI] 32.0-32.9, adult | CPT/HCPCS: 99212 ==

== ENCOUNTER → 2021-04-27 10:15 | Outpatient (BNVA) | payer OTHER, SELFPAY | PROVIDERS: Visit Provider Physician Assistant Surgical ==

== ENCOUNTER 2022-12-23 10:00 | Outpatient (AMB) | payer OTHER, SELFPAY ==
--- NOTE | 2022-12-23 09:44 | A.OFFPC_ITS ---
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 She is s/p LSG without hiatal hernia repair on?01/12/[address] Patel, still continue to lose weight. Has been compliant with her diet, gets regular exercise. She is up-to-date with her cervical cancer screening, done 01/27/2021 at [facility] which came back negative for intraepithelial lesion or malignancy, negative for HPV. She has type 2 diabetes mellitus and anxiety disorder, was on escitalopram which helped, needs refills. Currently sees a therapist. Currently not on any medication for her diabetes. Previously was prescribed Trulicity. Has lesion on her left lower extremity which has been present now for the last several months, would like a referral to see a paper stripper to get a checked. Complains of pain in her right wrist, worse with opening jars/ do hers or carrying anything heavy with her right hand COUNTS INCLUDE 234 BEDS AT THE [facility] Medical History (Updated 12/23/22 @ 11:16 by Kaykay Maxwell MD) Skin lesion of left leg Right wrist pain Anxiety and depression History of iron deficiency anemia Type 2 diabetes mellitus without complication, with no history of insulin use Hepatosplenomegaly Delayed gastric emptying COVID-19 vaccine series completed Obesity Anemia Vitamin B1 deficiency BMI 40.0-44.9, adult Adjustment disorder, unspecified Vitamin D deficiency Hx of diabetes mellitus Surgical History (Updated 01/02/23 @ 02:17 by Kaykay Maxwell MD) Hx laparoscopic cholecystectomy History of bilateral tubal ligation Hx of emergency section Family History (Updated 12/23/22 @ 10:32 by Sarah Palma [facility]) Mother Hypertension Anxiety Father No problems noted. Brother No problems noted. Brother No problems noted. Brother No problems noted. Sister No problems noted. Son No problems noted. Son No problems noted. Son No problems noted. Daughter No problems noted. Daughter No problems noted. Daughter No problems noted. Social History Housing: Apartment Are you a primary health care aide to a significant other at home: No Do you presently have visiting nurse or other home services: No Alcohol intake: current Alcohol intake frequency: holidays/special occasions only Patient Tobacco Use Status: Never used Tobacco e-Cigarette/Vaping Use: Never Used service: No Current occupational status: employed Cognitive needs: No Hearing needs: No Vision needs: Yes Questionnaire PHQ-9 Over the last 2 weeks, how often have you been bothered by any of the following problems? 1. Little interest or pleasure in doing things: more than half the days 2. Feeling down, depressed, or hopeless: more than half the days 3. Trouble falling or staying asleep, or sleeping too much: nearly every day 4. Feeling tired or having little energy: nearly every day 5. Poor appetite or overeating: nearly every day 6. Feeling bad about yourself - or that you are a failure or have let yourself or your family down: several days 7. Trouble concentrating on things, such as reading the newspaper or watching television: more than half the days 8. Moving or speaking so slowly that other people could have noticed. Or the opposite - being so fidgety or restless that you have been moving around a lot more than usual: several days 9. Thoughts that you would be better off or of hurting yourself in some way: not at all Total score: 17 Depression Screening Interpretation: Positive (sees therapist every 2 weeks ) Depression Screening Follow-up: Existing condition, In treatment and New Medication prescribed 51376 - PHQ-9 Billing: Yes Source: Developed by Drs. Gorge Tavarez, Olga Pedroza, Jona Grove and colleagues, with an educational melvina from [employer]. Thrive Questionnaire Date Thrive assessed: 12/23/22 I am a: Patient What is your living situation today?: I have a steady place to live Within the past 12 months, did the food you bought not last and you didn't have the money to get more?: Never true Within the past 12 months, did you worry whether your food would run out before you got money to buy more?: Never true Do you have trouble paying for medicines?: No Do you have trouble getting transportation to medical appointments?: No Do you have trouble paying your heating and electricity bill?: No Do you have trouble taking care of your child, family member or friend?: No Do you have trouble with day-to-day activities such as bathing, preparing meals, shopping, managing finances, etc.?: No Are you currently unemployed and looking for a job?: No Are you interested in more education?: No AUDIT C Alcohol Use Questionnaire (AUDIT-C) 1. How often do you have a drink containing alcohol?: Monthly or less 2. How many drinks containing alcohol do you have on a typical day when you are drinking?: 1 or 2 Total Score: 1 TIEN-7 AMB Questionnaire TIEN-7 Date TIEN - 7 assessed: 12/23/22 Feeling nervous, anxious, or on edge: 3 = Nearly every day Not being able to stop or control worryin = More than half the days Worrying too much about different things: 3 = Nearly every day Trouble relaxin = More than half the days Being so restless that it is hard to sit still: 2 = More than half the days Becoming easily annoyed or irritable: 3 = Nearly every day Feeling afraid as if something awful might happen: 1 = Several days Total TIEN-7 score (0-4 normal; 5-9 mild; 10-14 moderate; 15-21 severe): 16 Source: Developed by Drs. Gorge Tavarez, Olga Pedroza, Jona Grove and colleagues, with an educational melvina from [employer]. TIEN-7 Assessment Billing TIEN-7 Assessment Tool: TIEN-7 Assessment 58074 Review of Systems Const Denies daytime sleepiness, Reports difficulty sleeping, Denies fatigue, Denies fever(s), Denies headache(s), Denies snoring and Denies stops breathing during sleep Eyes Reports requires corrective lenses ENT Denies headache(s) Card Denies chest pain, Denies irregular heart rhythm, Denies leg edema, Denies dyspnea and Denies dyspnea on exertion Resp Denies cough, Denies hemoptysis, Denies excessive phlegm production, Denies dyspnea, Denies dyspnea on exertion, Denies snoring and Denies wheezing GI Denies abdominal pain, Denies hematochezia, Denies heartburn, Denies nausea and Denies vomiting Reports no additional complaints Musc Reports as per HPI, Denies back pain and Denies joint swelling Skin/Breast Reports as per HPI, Denies breast pain, Denies breast mass and Denies rash Neuro Denies headache(s) Psych Denies abnormal sleep pattern, Denies anxiety and Denies depression Endo Denies fatigue Aller/Immun Denies wheezing Physical exam (Primary Care) Vital Signs: Last Vital Signs Pulse 90 12/23/22 10:22 BP 115/70 12/23/22 10:22 Pulse Ox 100 12/23/22 10:22 Oxygen Delivery Method Room Air 12/23/22 10:22 BMI result Body Mass Index 43.9 BMI Assessment/Plan discussion: High BMI High, discussed plan: lifestyle, weight reduction, dietary and physical activity Tobacco/Smoking Status: Tobacco use Status Tobacco use date assessed 12/23/22 12/23/22 10:19 Patient Tobacco Use Status Never used Tobacco 12/23/22 09:45 e-Cigarette/Vaping Use Never Used 12/23/22 10:32 PHQ-9: PHQ-9 Score PHQ-9: Total score 17 01/02/23 02:16 Depression Screening Interpretation: Positive (sees therapist every 2 weeks ) Depression Screening Follow-up: Existing condition, In treatment and New Medication prescribed Thrive Assessment: Date of Thrive Assessment Date Thrive assessed 12/23/22 12/23/22 10:32 Const General: comfortable, no acute distress and alert Nutritional Appearance: obese morbidly obese Orientation/consciousness: patient oriented x3 Limitations: no limitations HENMT Ears: external ears normal, TM's normal bilaterally and EAC's normal General nose exam: Normal external nose present and No nasal discharge present Mouth: Normal oral and palatal mucosa present, oropharynx normal and moist mucous membranes Eyes General: appearance normal, both eyes and all related structures Conjunctivae: conjunctivae normal Sclerae: sclerae normal Pupils: Equal, round and reactive pupils present EOM: EOMs intact bilaterally Neck Neck: Yes full ROM, Yes no lymphadenopathy and Yes supple Chest Chest palpation & inspection: normal inspection of the chest Breast/axilla palpation: normal palpation of the breasts Resp Effort & Inspection: normal respiratory effort and able to speak in complete sentences Auscultation: clear to auscultation bilaterally Cardio Rate: regular rate Rhythm: regular rhythm Heart sounds: S1 normal heart sound present and S2 normal heart sound present GI Palpation (GI): Soft to palpation, nontender and no masses Auscultation: normal bowel sounds Other: Goes to [facility] for her routine Pap and pelvic exam, currently up-to-date General: Yes deferred Back/Spine/Pelvis Back: No back tenderness Skin Other: Slightly raised patch on left lower extremity Neuro General: patient oriented x3, gait normal, tone normal, moves all extremities, Normal light touch and pain sensation and no focal motor deficits Cranial nerves: Yes CN's II-XII intact bilaterally and Yes Equal, round and reactive pupils present Cognition (Neuro): normal cognition Extrem General: Yes full ROM, Yes no joint enlargement, Yes no clubbing, cyanosis or edema and Yes no calf tenderness Psych Appearance: grossly normal and well kempt Mental Status: mental status grossly normal Speech and movement: Normal speech and movement present Affect: normal affect Attitude: cooperative Thought process: Normal thought process present Thought content: Normal thought content present, suicidality and no homicidality Assessment and Plan Assessment & Plan (1) Morbid obesity: Code(s): E66.01 - Morbid (severe) obesity due to excess calories Plan: Currently followed by weight loss clinic, encouraged again to adhere to recommended diet and getting regular exercise (2) S/P laparoscopic sleeve gastrectomy: Code(s): Z98.84 - Bariatric surgery status Plan: Followed by weight loss clinic (3) Type 2 diabetes mellitus without complication, with no history of insulin use: Code(s): E11.9 - Type 2 diabetes mellitus without complications Plan: Labs ordered today to check hemoglobin A1c, basic metabolic panel, fasting lipid panel (4) History of iron deficiency anemia: Code(s): Z86.2 - Personal history of diseases of the blood and blood-forming organs and certain disorders involving the immune mechanism Plan: Ordered CBC with differential on iron profile (5) Diabetes mellitus: Code(s): E11.9 - Type 2 diabetes mellitus without complications Plan: Fasting labs ordered. Reinforced diabetic diet and regular exercise with patient. Counseled regarding importance of yearly diabetes retinopathy screening. Patient advised to inspect feet daily, for any signs of injury, callus or infection. Compliance with diet and regular exercise again stressed. Blood pressure goal is less than 130/80, goal LDL is less than 100 and goal hemoglobin A1c is less than 7% (6) Anxiety and depression: Code(s): F41.9 - Anxiety disorder, unspecified; F32.A - Depression, unspecified Plan: Restarted back on escitalopram 20 mg once a day, currently sees therapist every 2 weeks (7) Right wrist pain: Code(s): M25.531 - Pain in right wrist Plan: Ordered nerve conduction study (8) Skin cancer screening: Code(s): Z12.83 - Encounter for screening for malignant neoplasm of skin Plan: Dermatology consult obtain (9) Numbness of fingers: Code(s): R20.0 - Anesthesia of skin Plan: Nerve conduction study ordered, lab ordered to check CBC, vitamin-D, vitamin B12 and folic acid and TSH reflex free T4 Orders: Orders Complete Blood Count Auto Diff 12/23/22 E66.01 - Morbid (severe) obesity due to excess calories, E11.9 - Type 2 diabetes mellitus without complications, Z86.2 - Personal history of diseases of the blood and blood-forming organs and certain disorders involving the immune mechanism, Z98.84 - Bariatric surgery status Vitamin D 25-OH Total 12/23/22 E66.01 - Morbid (severe) obesity due to excess calories, E11.9 - Type 2 diabetes mellitus without complications, Z86.2 - Personal history of diseases of the blood and blood-forming organs and certain disorders involving the immune mechanism, Z98.84 - Bariatric surgery status Vitamin B12 and Folate 12/23/22 E66.01 - Morbid (severe) obesity due to excess calories, E11.9 - Type 2 diabetes mellitus without complications, Z86.2 - Personal history of diseases of the blood and blood-forming organs and certain disorders involving the immune mechanism, Z98.84 - Bariatric surgery status TSH reflex Free T4 12/23/22 E66.01 - Morbid (severe) obesity due to excess calories, E11.9 - Type 2 diabetes mellitus without complications, Z86.2 - Personal history of diseases of the blood and blood-forming organs and certain disorders involving the immune mechanism, Z98.84 - Bariatric surgery status Hemoglobin A1c 12/23/22 E66.01 - Morbid (severe) obesity due to excess calories, E11.9 - Type 2 diabetes mellitus without complications, Z86.2 - Personal history of diseases of the blood and blood-forming organs and certain disorders involving the immune mechanism, Z98.84 - Bariatric surgery status Alanine Aminotransferase 12/23/22 E66.01 - Morbid (severe) obesity due to excess calories, E11.9 - Type 2 diabetes mellitus without complications, Z86.2 - Personal history of diseases of the blood and blood-forming organs and certain disorders involving the immune mechanism, Z98.84 - Bariatric surgery status IRON PROFILE 12/23/22 E66.01 - Morbid (severe) obesity due to excess calories, E11.9 - Type 2 diabetes mellitus without complications, Z86.2 - Personal history of diseases of the blood and blood-forming organs and certain disorders involving the immune mechanism, Z98.84 - Bariatric surgery status NE nerve conduction velocity 12/23/22 M25.531 - Pain in right wrist, R20.0 - Anesthesia of skin Lipid Panel 12/23/22 E66.01 - Morbid (severe) obesity due to excess calories, E11.9 - Type 2 diabetes mellitus without complications, Z86.2 - Personal history of diseases of the blood and blood-forming organs and certain disorders involving the immune mechanism, Z98.84 - Bariatric surgery status Aspartate Amino Transferase 12/23/22 E66.01 - Morbid (severe) obesity due to excess calories, E11.9 - Type 2 diabetes mellitus without complications, Z86.2 - Personal history of diseases of the blood and blood-forming organs and certain disorders involving the immune mechanism, Z98.84 - Bariatric surgery status Basic Metabolic Panel Fasting 12/23/22 E66.01 - Morbid (severe) obesity due to excess calories, E11.9 - Type 2 diabetes mellitus without complications, Z86.2 - Personal history of diseases of the blood and blood-forming organs and certain disorders involving the immune mechanism, Z98.84 - Bariatric surgery status Referrals Dermatology Referral Z12.83 - Encounter for screening for malignant neoplasm of skin, L98.9 - Disorder of the skin and subcutaneous tissue, unspecified Medications: New escitalopram oxalate 20 mg PO DAILY 90 tabs 0RF F41.9 - Anxiety disorder, unspecified, F32.A - Depression, unspecified Coding Level of Care Code New Pt Prev Care 18-39yr([id number] Diagnoses Morbid obesity E66.01 S/P laparoscopic sleeve gastrectomy Z98.84 Type 2 diabetes mellitus without complication, with no history of insulin use E11.9 History of iron deficiency anemia Z86.2 Diabetes mellitus E11.9 Anxiety and depression F41.9; F32.A Right wrist pain M25.531 Skin cancer screening Z12.83 Numbness of fingers R20.0 Additional Codes TIEN-7 Assessment Billing - TIEN-7 Assessment Tool: TIEN-7 Assessment [id number] ([id number])
[2022-12-23 10:22] VITALS: BP 115/70; PULSE 90; O2SAT 100; BMI 43.9
== END 2022-12-23 11:21 | disposition home or self-care (01) ==
PROVIDERS: Visit Provider Internal Medicine
DX: Z00.00 Encounter for general adult medical examination without abnormal findings (principal); E66.01 Morbid (severe) obesity due to excess calories; Z68.41 Body mass index [BMI] 40.0-44.9, adult; E11.9 Type 2 diabetes mellitus without complications; Z98.84 Bariatric surgery status; Z86.2 Personal history of diseases of the blood and blood-forming organs and certain disorders involving the immune mechanism; F41.9 Anxiety disorder, unspecified; F32.A Depression, unspecified; M25.531 Pain in right wrist; Z12.83 Encounter for screening for malignant neoplasm of skin; R20.0 Anesthesia of skin
CPT/HCPCS: 99385

== ENCOUNTER 2022-12-31 13:35 | Outpatient (REF) | payer OTHER, SELFPAY ==
[2022-12-31 16:21] LABS: MANUAL DIFF FLAG NO
[2022-12-31 16:22] LABS: Basophils Percent Auto 0.4 % (0-2); Eosinophils Absolute Auto 0.1 X10*3/uL (0.0-0.4); Eosinophils Percent Auto 1.6 % (0-4); Hematocrit 31.2 % (37.0-47.0); Hemoglobin 8.8 g/dl (12.0-16.0); Lymphocytes Absolute Auto 1.7 X10*3/uL (1.2-4.9); Lymphocytes Percent Auto 30.3 % (20-40); Mean Corpuscular HGB Conc 28.2 g/dl (31.0-35.0); Mean Corpuscular Volume 71.1 fL (80.0-98.0); Mean Platelet Volume 11.1 fL (9.4-12.3); Monocytes Absolute Auto 0.3 X10*3/uL (0.1-1.2); Monocytes Percent Auto 4.8 % (2-11); Neutrophils Absolute Auto 3.5 x10*3/uL (2.0-8.3); Neutrophils Percent Auto 62.9 % (45-73); Platelet Count 225 X10*3/uL (160-400); Red Blood Count 4.39 X10*6/uL (4.20-5.50); Red Cell Distribution Width 16.3 % (11.0-16.0); White Blood Count 5.6 X10*3/uL (4.8-10.8)
[2022-12-31 16:40] LABS: Alanine Aminotransferase 16 U/L (0-31); Anion Gap 14 (12-20); Aspartate Amino Transferase 18 U/L (5-31); Blood Urea Nitrogen 11 mg/dL (9-16); Calcium 9.6 mg/dL (8.4-10.2); Carbon Dioxide 23 mmol/L (22-29); Chloride 106 mmol/L (96-108); Cholesterol 176 mg/dL (<200); Estimated Glomerular Filt Rate > 60; Glucose Fasting 117 mg/dL (60-99); HDL Cholesterol 36 mg/dL (>40); Iron 17 mcg/dL (30-160); LDL Cholesterol Calculated 119 mg/dL (<100); Percent Iron Saturation 5 % (15-50); Potassium 4.2 mmol/L (3.3-5.1); Sodium 139 mmol/L (135-145); Total Iron Binding Capacity 368 mcg/dL (228-428); Triglycerides 107 mg/dL (<150); Unsaturated Iron Binding 351 ug/dL
[2022-12-31 16:54] LABS: TSH reflex Free T4 1.96 uIU/mL (0.32-4.0); Vitamin D 25-OH Total 30.6 ng/mL (>30)
[2022-12-31 17:09] LABS: Folate 10.2 ng/mL (> or = 4.0); Vitamin B12 367 pg/mL (200-900)
[2023-01-01 08:27] LABS: Estimated Average Glucose 146 mg/dL; Hemoglobin A1c % 6.7 % (<6.0)
== END 2022-12-31 13:36 | disposition home or self-care (01) ==
LOC: HO.HMGCLDS 13:35
PROVIDERS: PCP Internal Medicine; Visit Provider Internal Medicine
DX: E66.01 Morbid (severe) obesity due to excess calories (principal); E11.9 Type 2 diabetes mellitus without complications; Z86.2 Personal history of diseases of the blood and blood-forming organs and certain disorders involving the immune mechanism; Z98.84 Bariatric surgery status
CPT/HCPCS: 36415; 80048; 80061; 82306; 82607; 82746; 83036; 83540; 84443; 84450; 84460; 85025

== ENCOUNTER 2023-01-04 08:35 | Outpatient (REF) | payer OTHER, SELFPAY ==
--- NOTE | 2023-01-04 08:37 | EMG_ITS ---
Please see scanned EMG / Nerve Conduction Report. MTDD
== END 2023-01-04 08:36 | disposition home or self-care (01) ==
LOC: HO.NEURO 08:35
PROVIDERS: PCP Internal Medicine; Visit Provider Internal Medicine
DX: R20.0 Anesthesia of skin (principal); M25.531 Pain in right wrist
CPT/HCPCS: 95885; 95910

== ENCOUNTER 2023-03-11 11:46 | Outpatient (REF) | payer OTHER, SELFPAY ==
--- NOTE | ~2023-03-11 | XR_ITS ---
EXAMINATION: XR LUMBOSACRAL SPINE CLINICAL INFORMATION: Patient states low back pain left near T12-L1, pain entire low back, no trauma. COMPARISON: None available. TECHNIQUE: 3 views of the lumbosacral spine. FINDINGS: Surgical clips in the upper abdomen. Straightening of the normal lumbar lordosis. Mild degenerative changes in the imaged lower thoracic spine. Mild multilevel lumbar spondylosis. Mild endplate irregularities at L1 and L2. Lumbar disc space heights are preserved. Facet arthritis in the lower lumbar spine. Linear lucency raises the possibility of spondylolysis at L4. XR/XR lumbar spine 2-3V IMPRESSION: 1. Mild endplate irregularities at L1 and L2. 2. Mild multilevel lumbar spondylosis. 3. Facet arthritis in the lower lumbar spine. 4. Linear lucency raises the possibility of spondylolysis at L4. Correlation with clinical exam recommended to determine further management. If there is concern for fracture or other underlying pathology, MRI could be obtained for further evaluation.
== END 2023-03-11 11:47 | disposition home or self-care (01) ==
LOC: HO.HMGCX 11:46
PROVIDERS: PCP Internal Medicine; Visit Provider Internal Medicine
DX: M54.9 Dorsalgia, unspecified (principal)
CPT/HCPCS: 72100

== ENCOUNTER 2023-03-28 11:38 | Outpatient (AMB) | payer OTHER, SELFPAY ==
--- NOTE | 2023-03-28 11:43 | A.OFFPC_ITS ---
Vital Signs 03/28/23 11:44 Height 5 ft 4 in Weight 255 lb BMI 43.8 BP 112/80 Blood Pressure Location Lt brachial Position Sitting Pulse 77 Pulse Source Pulse Oximeter Pulse Oximetry (%) 99 Oxygen Delivery Method Room Air Intake Visit Reasons: 3 month follow up Intake Note: Pt is here today for her 3 months f/u Allergies oxycodone Allergy (Severe, Verified 03/28/23 15:22) Itching Medication List - Last Reconciled 03/28/23 by Kaykay Maxwell MD escitalopram oxalate 20 mg PO DAILY ferrous sulfate 325 mg PO DAILY metformin ER 500 mg PO BID Tobacco use date assessed: 03/28/23 Dental Screening Dental Screen Date: 03/28/23 HPI 3 month follow up HPI Details 32-year-old lady here today for follow-u p. She has microcytic hypochromic anemia currently on ferrous sulfate 325 mg daily, which she has been taking regularly. Denies any constipation, or black tarry stools what take the medication. Has anxiety depression, currently sees therapist and on escitalopram 20 mg daily , which she has been taking now for month patient denies any change in her mood, no noticeable improvement, still get anxiety attacks. Patient sees her therapist regularly and they have suggested that she be tested for possible ADD . Her son has been diagnosed with it and so was her brother who currently is not on any medication at present time. Still having low back pain, not radiating, described as a sharp, pulling sensation in mid lower back. X-ray of LS spine showed Mild endplate irregularities at L1 and L2, mild multilevel lumbar spondylosis, with facet arthritis in the lower lumbar spine, and linear lucency raises the possibility of spondylolysis at L4. No accompanying urinary or stool incontinence, no numbness or weakness in lower extremities reported. Currently sees [facility], Dr. Evans for her bilateral carpal tunnel syndrome, right more than the left. Patient requested copy of results of her nerve conduction study to be given to orthopedic surgeon for re view. Has diabetes mellitus currently on metformin ER 500 mg twice a day started by her previous PCP Dr. Ramirez. [facility] Medical History (Updated 03/28/23 @ 15:36 by Kaykay Maxwell MD) Lumbar degenerative disc disease Carpal tunnel syndrome of right wrist Skin lesion of left leg Anxiety and depression Type 2 diabetes mellitus without complication, with no history of insulin use Hepatosplenomegaly Delayed gastric emptying COVID-19 vaccine series completed Vitamin B1 deficiency BMI 40.0-44.9, adult Surgical History Hx laparoscopic cholecystectomy History of bilateral tubal ligation Hx of emergency section Family History (Updated 03/28/23 @ 15:37 by Kaykay Maxwell MD) Mother Hypertension Anxiety Mental health disorder Brother ADD (attention deficit disorder) Son ADD (attention deficit disorder) Other Right wrist pain Social History Housing: Apartment Are you a primary care technician to a significant other at home: No Do you presently have visiting nurse or other home services: No Alcohol intake: current Alcohol intake frequency: holidays/special occasions only Patient Tobacco Use Status: Never used Tobacco e-Cigarette/Vaping Use: Never Used service: No Current occupational status: employed Cognitive needs: No Hearing needs: No Vision needs: Yes Questionnaire Thrive Questionnaire Date Thrive assessed: 12/23/22 AUDIT C Alcohol Use Questionnaire (AUDIT-C) 1. How often do you have a drink containing alcohol?: Monthly or less Total Score: 1 TIEN-7 AMB Questionnaire TIEN-7 Date TIEN - 7 assessed: 12/23/22 Source: Developed by Drs. Gorge Tavarez, Olga Pedroza, Jona Grove and colleagues, with an educational melvina from [employer]. Review of Systems Const Reports difficulty sleeping, Denies fever(s), Denies headache(s), Denies snoring, Denies stops breathing during sleep and Denies weight loss Eyes Reports requires corrective lenses ENT Denies headache(s) Card Denies chest pain, Denies irregular heart rhythm, Denies leg edema, Denies dyspnea and Denies dyspnea on exertion Resp Denies cough, Denies hemoptysis, Denies dyspnea, Denies dyspnea on exertion and Denies snoring GI Denies abdominal pain, Denies heartburn, Denies nausea and Denies vomiting Musc Reports as per HPI and Denies joint swelling Neuro Denies headache(s) Psych Reports as per HPI Endo Reports no additional complaints Merrill/Lymph Reports no additional complaints Aller/Immun Reports no additional complaints Physical exam (Primary Care) Vital Signs: Last Vital Signs Pulse 77 03/28/23 11:44 BP 112/80 03/28/23 11:44 Pulse Ox 99 03/28/23 11:44 Oxygen Delivery Method Room Air 03/28/23 11:44 BMI result Body Mass Index 43.8 Tobacco/Smoking Status: Tobacco use Status Tobacco use date assessed 03/28/23 03/28/23 11:49 Patient Tobacco Use Status Never used Tobacco 03/28/23 11:49 e-Cigarette/Vaping Use Never Used 03/28/23 11:49 Thrive Assessment: Date of Thrive Assessment Date Thrive assessed 12/23/22 03/28/23 11:49 Const General: comfortable, no acute distress and alert Nutritional Appearance: obese morbidly obese Orientation/consciousness: patient oriented x3 Eyes General: appearance normal, both eyes and all related structures Neck Neck: Yes full ROM and Yes supple Resp Effort & Inspection: normal respiratory effort and able to speak in complete sentences Auscultation: clear to auscultation bilaterally Other: Goes [facility] for her routine Pap and pelvic exam, currently up-to-date General: Yes deferred Back/Spine/Pelvis Thoracic/Lumbar Spine: straight leg raise negative bilaterally and paraspinal muscle tenderness bilaterally in the upper thoracic and in the mid thoracic Neuro General: patient oriented x3, gait normal, tone normal, moves all extremities, Normal light touch and pain sensation and no focal motor deficits Cranial nerves: Yes CN's II-XII intact bilaterally Cognition (Neuro): normal cognition Extrem General: Yes full ROM, Yes no joint enlargement, Yes no clubbing, cyanosis or edema and Yes no calf tenderness Psych Appearance: grossly normal and well kempt Mental Status: mental status grossly normal Speech and movement: Normal speech and movement present Thought process: Normal thought process present Thought content: Normal thought content present Assessment and Plan Assessment & Plan (1) Lumbar degenerative disc disease: Code(s): M51.36 - Other intervertebral disc degeneration, lumbar region Plan: REFERRED FOR PHYSICAL THERAPY, IF NO IMPROVEMENT WITH PHYSICAL THERAPY OR ANY WORSENING OF SYMPTOMS WITH STARTING PHYSICAL THERAPY, TO CALL AND WILL REFER FOR MRI OF LUMBAR SPINE (2) Iron deficiency anemia: Code(s): D50.9 - Iron deficiency anemia, unspecified Plan: Continued on ferrous sulfate 325 mg once a day, ordered CBC with iron profile level (3) Type 2 diabetes mellitus without complication, with no history of insulin use: Code(s): E11.9 - Type 2 diabetes mellitus without complications Plan: Ordered hemoglobin A1c, urine for microalbumin screening, fasting lipids and basic metabolic panel. Currently on metformin ER 500 mg taken 1 tablet twice a day and has been compliant with diabetic diet (4) Anxiety and depression: Code(s): F41.9 - Anxiety disorder, unspecified; F32.A - Depression, unspecified Plan: Currently on escitalopram, and sees therapist regularly, who has advised getting patient checked for possible ADD. Patient referred to oliver Parham [facility], for assistance in getting her in to be seen for evaluation for ADD , suggested [facility] (5) Morbid obesity: Code(s): E66.01 - Morbid (severe) obesity due to excess calories Plan: Previously was being seen at the weight loss clinic in [facility] Orders: Orders IRON PROFILE Today D50.9 - Iron deficiency anemia, unspecified, E11.9 - Type 2 diabetes mellitus without complications, E66.01 - Morbid (severe) obesity due to excess calories, E66.9 - Obesity, unspecified, F32.A - Depression, unspecified, F41.9 - Anxiety disorder, unspecified Basic Metabolic Panel Fasting Today D50.9 - Iron deficiency anemia, unspecified, E11.9 - Type 2 diabetes mellitus without complications, E66.01 - Morbid (severe) obesity due to excess calories, E66.9 - Obesity, unspecified, F32.A - Depression, unspecified, F41.9 - Anxiety disorder, unspecified PT Evaluation and Treatment Today M51.36 - Other intervertebral disc degeneration, lumbar region Complete Blood Count Auto Diff Today D50.9 - Iron deficiency anemia, unspecified, E11.9 - Type 2 diabetes mellitus without complications, E66.01 - Morbid (severe) obesity due to excess calories, E66.9 - Obesity, unspecified, F32.A - Depression, unspecified, F41.9 - Anxiety disorder, unspecified Hemoglobin A1c Today D50.9 - Iron deficiency anemia, unspecified, E11.9 - Type 2 diabetes mellitus without complications, E66.01 - Morbid (severe) obesity due to excess calories, E66.9 - Obesity, unspecified, F32.A - Depression, unspecified, F41.9 - Anxiety disorder, unspecified Microalbumin, Random (w Creat) Today D50.9 - Iron deficiency anemia, unspecified, E11.9 - Type 2 diabetes mellitus without complications, E66.01 - Morbid (severe) obesity due to excess calories, E66.9 - Obesity, unspecified, F32.A - Depression, unspecified, F41.9 - Anxiety disorder, unspecified Lipid Panel Today D50.9 - Iron deficiency anemia, unspecified, E11.9 - Type 2 diabetes mellitus without complications, E66.01 - Morbid (severe) obesity due to excess calories, E66.9 - Obesity, unspecified, F32.A - Depression, unspecified, F41.9 - Anxiety disorder, unspecified Coding Level of Care Code Est Pt Level 4 (65873) Diagnoses Lumbar degenerative disc disease M51.36 Iron deficiency anemia D50.9 Type 2 diabetes mellitus without complication, with no history of insulin use E11.9 Anxiety and depression F41.9; F32.A Morbid obesity E66.01
[2023-03-28 11:44] VITALS: BP 112/80; PULSE 77; O2SAT 99; BMI 43.8
== END 2023-03-28 14:09 | disposition home or self-care (01) ==
LOC: HO.HMGC 11:38
PROVIDERS: PCP Internal Medicine; Visit Provider Internal Medicine
DX: E11.9 Type 2 diabetes mellitus without complications (principal); E66.01 Morbid (severe) obesity due to excess calories; Z68.41 Body mass index [BMI] 40.0-44.9, adult; M51.36 Other intervertebral disc degeneration, lumbar region; D50.9 Iron deficiency anemia, unspecified; F41.9 Anxiety disorder, unspecified; F32.A Depression, unspecified
CPT/HCPCS: 99214

== ENCOUNTER 2023-03-28 12:36 | Outpatient (REF) | payer OTHER, SELFPAY ==
[2023-03-28 16:22] LABS: MANUAL DIFF FLAG NO
[2023-03-28 16:29] LABS: Basophils Percent Auto 0.6 % (0-2); Eosinophils Absolute Auto 0.1 X10*3/uL (0.0-0.4); Eosinophils Percent Auto 1.8 % (0-4); Hematocrit 32.7 % (37.0-47.0); Hemoglobin 9.4 g/dl (12.0-16.0); Imm Gran Abs Auto 0.01 X10*3/uL (0.00-0.03); Imm Gran Pct Auto 0.2 % (0.0-0.4); Lymphocytes Absolute Auto 1.8 X10*3/uL (1.2-4.9); Mean Corpuscular HGB Conc 28.7 g/dl (31.0-35.0); Mean Corpuscular Hemoglobin 20.3 pg (27.0-33.0); Mean Corpuscular Volume 70.8 fL (80.0-98.0); Mean Platelet Volume 11.4 fL (9.4-12.3); Monocytes Absolute Auto 0.4 X10*3/uL (0.1-1.2); Neutrophils Absolute Auto 2.8 x10*3/uL (2.0-8.3); Neutrophils Percent Auto 55.4 % (45-73); Platelet Count 247 X10*3/uL (160-400); Red Blood Count 4.62 X10*6/uL (4.20-5.50); Red Cell Distribution Width 17.1 % (11.0-16.0)
[2023-03-28 16:44] LABS: Anion Gap 11 (12-20); Blood Urea Nitrogen 11 mg/dL (9-16); Calcium 9.3 mg/dL (8.4-10.2); Carbon Dioxide 25 mmol/L (22-29); Chloride 109 mmol/L (96-108); Cholesterol 156 mg/dL (<200); Estimated Glomerular Filt Rate > 60; Glucose Fasting 126 mg/dL (60-99); HDL Cholesterol 34 mg/dL (>40); Iron 15 mcg/dL (30-160); LDL Cholesterol Calculated 95 mg/dL (<100); Percent Iron Saturation 4 % (15-50); Sodium 141 mmol/L (135-145); Total Iron Binding Capacity 351 mcg/dL (228-428); Triglycerides 135 mg/dL (<150); Unsaturated Iron Binding 336 ug/dL
[2023-03-28 16:45] LABS: Estimated Average Glucose 143 mg/dL; Hemoglobin A1c % 6.6 % (<6.0)
[2023-03-28 17:20] LABS: Creatinine Urine 326.43 mg/dL; Microalbum/Creatinine Ratio Ur 4.5 ug/mg cr (<30)
== END 2023-03-28 12:37 | disposition home or self-care (01) ==
LOC: HO.HMGCLDS 12:36
PROVIDERS: PCP Internal Medicine; Visit Provider Internal Medicine
DX: D50.9 Iron deficiency anemia, unspecified (principal); E11.9 Type 2 diabetes mellitus without complications; F41.9 Anxiety disorder, unspecified; F32.A Depression, unspecified; E66.01 Morbid (severe) obesity due to excess calories
CPT/HCPCS: 36415; 80048; 80061; 82043; 82570; 83036; 83540; 85025

== ENCOUNTER 2023-07-10 09:32 | Outpatient (REF) | payer OTHER, SELFPAY ==
[2023-07-10 09:49] LABS: MANUAL DIFF FLAG NO
[2023-07-10 10:32] LABS: Basophils Percent Auto 0.3 % (0-2); Eosinophils Absolute Auto 0.1 X10*3/uL (0.0-0.4); Eosinophils Percent Auto 1.1 % (0-4); Hematocrit 33.7 % (37.0-47.0); Hemoglobin 9.7 g/dl (12.0-16.0); Imm Gran Abs Auto 0.02 X10*3/uL (0.00-0.03); Imm Gran Pct Auto 0.3 % (0.0-0.4); Lymphocytes Absolute Auto 1.7 X10*3/uL (1.2-4.9); Lymphocytes Percent Auto 27.7 % (20-40); Mean Corpuscular HGB Conc 28.8 g/dl (31.0-35.0); Mean Corpuscular Hemoglobin 20.1 pg (27.0-33.0); Mean Corpuscular Volume 69.9 fL (80.0-98.0); Mean Platelet Volume 11.1 fL (9.4-12.3); Monocytes Absolute Auto 0.4 X10*3/uL (0.1-1.2); Monocytes Percent Auto 6.1 % (2-11); Neutrophils Percent Auto 64.5 % (45-73); Platelet Count 248 X10*3/uL (160-400); Red Blood Count 4.82 X10*6/uL (4.20-5.50); Red Cell Distribution Width 16.4 % (11.0-16.0); White Blood Count 6.2 X10*3/uL (4.8-10.8)
[2023-07-10 11:15] LABS: Estimated Average Glucose 140 mg/dL; Hemoglobin A1c % 6.5 % (<6.0)
[2023-07-10 11:19] LABS: Alanine Aminotransferase 10 U/L (0-31); Anion Gap 10 (12-20); Aspartate Amino Transferase 12 U/L (5-31); Blood Urea Nitrogen 11 mg/dL (9-16); Calcium 9.2 mg/dL (8.4-10.2); Carbon Dioxide 24 mmol/L (22-29); Chloride 109 mmol/L (96-108); Cholesterol 173 mg/dL (<200); Estimated Glomerular Filt Rate > 60; Glucose Fasting 126 mg/dL (60-99); HDL Cholesterol 34 mg/dL (>40); Iron 18 mcg/dL (30-160); LDL Cholesterol Calculated 116 mg/dL (<100); Percent Iron Saturation 5 % (15-50); Potassium 3.8 mmol/L (3.3-5.1); Sodium 139 mmol/L (135-145); Total Iron Binding Capacity 361 mcg/dL (228-428); Triglycerides 115 mg/dL (<150); Unsaturated Iron Binding 343 ug/dL; Vitamin D 25-OH Total 21.8 ng/mL (>30)
== END 2023-07-10 09:33 | disposition home or self-care (01) ==
LOC: HO.LAB 09:32
PROVIDERS: PCP Internal Medicine; Visit Provider Internal Medicine
DX: E11.9 Type 2 diabetes mellitus without complications (principal); D50.9 Iron deficiency anemia, unspecified; E66.01 Morbid (severe) obesity due to excess calories; Z68.41 Body mass index [BMI] 40.0-44.9, adult
CPT/HCPCS: 36415; 80048; 80061; 82306; 83036; 83540; 84450; 84460; 85025

== ENCOUNTER → 2023-07-10 09:50 | Outpatient (BNV) | payer OTHER, SELFPAY | PROVIDERS: PCP Internal Medicine; Referring Provider Internal Medicine; Visit Provider Internal Medicine | DX: D50.9 Iron deficiency anemia, unspecified (principal) | CPT/HCPCS: 99204 ==

== ENCOUNTER 2023-08-21 07:30 | Outpatient (RCR) | payer OTHER, SELFPAY ==
[2023-07-24 07:31] VITALS: BP 135/87; PULSE 84; RESP 16; TEMP 36.6; O2SAT 100
--- OUTSIDE RECORDS SUMMARY | 2023-07-24 07:32 | XMS_ITS | Continuity of Care Document ---
Author Organization [facility] Address [address] [place] [address]- Care Team Providers Care Door Core Assembler Name Role Phone Glendy Ibrahim MD Primary Care Physician ( [phone] [place] [facility] [place]18[place]20 - 09/23/20 [facility] [address] [place] [id number] Attending Physician: Georgi Cristobal MD Admitting Physician: Georgi Cristobal MD Referring Physician: Glendy Ibrahim MD Allergies, Adverse Reactions, Alerts Substance Reaction Severity Status oxyCODONE 1 C/O: itching Active 1pt prefers not to get oxycodone it causes to much itching Immunizations Given and Recorded Vaccine Date Status Refusal Reason tetanus/diphtheria/pertussis, acel(Tdap) 01/16/17 Given tetanus/diphtheria/pertussis, acel(Tdap) 10/13/15 Given influenza virus vaccine, inactivated 01/16/17 Give n influenza virus vaccine, inactivated 01/14/16 Give n influenza virus vaccine, inactivated 1 03/05/13 Gi eleanor 1Admin Note: VIS Medications Alcohol Pads See Instructions, # 120 each, Refills 11, Tot. Refills 11, Maintenance, For blood glucose checks 4 x/day. Diagnosis: Type 2 diabetes in ., 07/17/19 15:53:00 EDT, 1 box, Compound, 163, cm, 02/13/19 10:33:00 EST, Height, 113.18, kg, ... Start Date: 07/17/19 Status: Ordered Freestyle Lite Monitor See Instructions, # 1 each, Refills 0, Tot. Refills 0, Maintenance, For blood glucose checks 4x/day. Diagnoses: Type 2 diabetes and , 07/17/19 16:00:00 EDT, Compound, 163, cm, 02/13/19 10:33:00 EST, Height, 113.18, kg, 02/04/19 16:43:00 E... Start Date: 07/17/19 Status: Ordered metFORMIN 500 mg oral tablet 1 tablet = 500 mg, By Mouth, 2 times a day, # 60 tablet, 11 Refills, Maintenance, 07/16/20 10:21:00EDT, Tablet, [facility] #[id number], 162, cm, 07/16/20 9:30:00 EDT, Height, 121.3, kg, 10/29/19 21:27:00 EDT, Dry Weight Start Date: 07/16/20 Stop Date: 07/11/21 Status: Ordered One Touch Delica Lancets See Instructions, # 1 pack/packet, Refills 5, Tot. Refills 5, Maintenance, 1 box = 100 lancets Blood sugar testing four times a day., 08/01/19 17:53:00 EDT, Supply, 163, cm, 02/13/19 10:33:00 EST, Height, 113.18, kg, 02/04/19 16:43:00 EST, Dry Weight Start Date: 08/01/19 Status: Ordered OneTouch Verio Glucose Meter See Instructions, # 1 kit, Refills 0, Tot. Refills 0, Maintenance, Blood sugar testing four times aday., 08/01/19 17:53:00 EDT, Supply, 163, cm, 02/13/19 10:33:00 EST, Height, 113.18, kg, 02/04/19 16:43:00 EST, Dry Weight Start Date: 08/01/19 Status: Ordered OneTouch Verio Test Strips See Instructions, # 1 pack/packet, Refills 5, Tot. Refills 5, Maintenance, 1 pack = 100 test stripsBlood sugar testing four times a day., 08/01/19 17:53:00 EDT, Supply, 163, cm, 02/13/19 10:33:00 EST, Height, 113.18, kg, 02/04/19 16:43:00 EST, Dry W... Start Date: 08/01/19 Status: Ordered Problem List Condition Effective Dates Status Health Status Inform ant Test anxiety(Confirmed) Active Breast lump in female(Confirmed) Active Previous section(Confirmed) Active Obesity(Confirmed) Active Health care maintenance(Confirmed) Active Type 2 diabetes mellitus(Confirmed) Active Social History Social History Type Response Smoking Status Never (less than 100 in lifetime); Tobacco user in household: No entered on: 02/16/18 Sex
--- OUTSIDE RECORDS SUMMARY | 2023-07-24 07:32 | XMS_ITS | Continuity of Care Document ---
Author Organization [facility] Address [address] [place] [address]- Care Team Providers Care Cadd Operator Name Role Phone Patrice NELSON, Glendy Cortez Primary Care Physician ( [phone] [place] [facility] [place] 09[place]10/20 [facility] [address] [place] [address]- Attending Physician: Momo DALE, Vivienne Bravo Admitting Physician: Momo DALE, Vivienne Bravo Allergies, Adverse Reactions, Alerts Substance Reaction Severity [...] tablet, 11 Refills, Maintenance, 07/16/20 10:21:00EDT, Tablet, [facility] #[id number], 162, cm, 07/16/20 9:30:00 EDT, Height, 121.3, [...]
--- OUTSIDE RECORDS SUMMARY | 2023-07-24 07:32 | XMS_ITS | Continuity of Care Document ---
Author Organization [facility] Address [address] [place] [address] [address] [place] [address]- Care Team Providers Care Phlebotomy Lab Assistant Name Role Phone Patrice NELSON, Glendy Cortez Primary Care Physician [place] [facility] Date(s): 02/18/19 - 04/05/[address] [place] [address]- [facility] Attending Physician: Berenice Mitchell MD Allergies, Adverse Reactions, Alerts Substance Reaction [...] VIS Medications Alcohol Pads See Instructions, # 1 carton, Maintenance, For blood glucose checks 4 x/day. Diagnosis: Type 2 diabetes in ., 02/16/18 16:32:53 EST, Compound Start Date: 02/16/18 Status: Ordered Colace sodium 100 mg oral capsule 100 mg, 1, capsule, By Mouth, 2 times a day, # 28 capsule, Refills 0, Tot. Refills 0, Maintenance, 02/04/19 10:33:59 EST, Print Requisition Start Date: 02/04/19 Stop Date: 02/18/19 Status: Ordered ferrous sulfate 325 mg oral tablet 1 tablet = 325 mg, By Mouth, 3 times a day, # 90 tablet, 0 Refills, Maintenance, 03/12/17 3:14:18, Tablet Start Date: 03/12/17 Status: Ordered Freestyle Lite Lancets See Instructions, # 1 carton, Maintenance, For blood glucose checks 4 x/day. Diagnosis: Type 2 diabetes in ., 02/16/18 16:31:21 EST, Compound Start Date: 02/16/18 Status: Ordered Freestyle Lite Monitor See Instructions, # 1 units, Maintenance, For blood glucose checks 4x/day. Diagnoses: Type 2 diabetes and , 02/16/18 16:29:17 EST, Compound Start Date: 02/16/18 Status: Ordered Freestyle Lite Test Strips See Instructions, # 1 carton, Maintenance, For blood glucose checks 4 x/day. Diagnosis: Type 2 diabetes in ., 02/16/18 16:31:31 EST, Compound Start Date: 02/16/18 Status: Ordered ibuprofen 600 mg oral tablet 600 mg, 1, tablet, By Mouth, 4 times a day, PRN, # 90 tablet, Refills 0, Tot. Refills 0, Maintenance, for pain, 08/14/18 19:17:47 EDT, Print Requisition Start Date: 08/14/18 Status: Ordered metFORMIN 500 mg oral tablet See Instructions, 1 tablet By Mouth with breakfast 3 tablets with dinnner., # 120 tablet, 6 Refills, Maintenance, 06/18/18 12:43:00 EDT, Tablet Start Date: 06/18/18 Status: Ordered MiraLax oral powder for reconstitution = 17 Gm, By Mouth, Daily, dissolve in water before taking, # 255 Gm, 0 Refills, Maintenance, 08/14/18 19:17:50 EDT, REC Powder Start Date: 08/14/18 Status: Ordered Right wrist splint for carpal tunnel Right wrist splint for carpal tunnel, See Instructions, # 1 each, Refills 0, Tot. Refills 0, Maintenance, for carpel tunnel, 10/17/18 16:56:19 EDT, Compound Start Date: 10/17/18 Status: Ordered Problem List Condition Effective Dates Status Health Status Inform ant Previous section(Confirmed) Active Iron deficiency anemia(Confirmed) Active Type 2 diabetes mellitus(Confirmed) Active Social History Social History Type Response Smoking Status Never (less than 100 in lifetime); Tobacco user in household: No entered on: 02/16/18 Sex
--- OUTSIDE RECORDS SUMMARY | 2023-07-24 07:32 | XMS_ITS | Continuity of Care Document ---
Author Organization [facility] ter Address [address] [place] [address]- Care Team Providers Care Professor Of Medicine Name Role Phone Glendy Ibrahim MD Primary Care Physician [place] [facility] [place] - 12/01/[address] [address]- [facility] Attending Physician: Italia Felix MD Admitting Physician: Italia Felix MD Referring Physician: Italia Felix MD Allergies, Adverse Reactions, Alerts Substance Reaction [...] kg, ... Start Date: 07/17/19 Status: Ordered Colace sodium 100 mg oral capsule 100 mg, 1, capsule, By Mouth, 2 times a day, PRN, # 60 capsule, Refills 0, Tot. Refills 0, Maintenance, for constipation, 11/01/19 6:53:00 EDT, Route to Pharmacy Electronically, [facility] #[id number], 163, cm, 10/31/19 23:53:00 EDT, Height, 121.... Start Date: 11/01/19 Status: Ordered Dilaudid 2 mg oral tablet 1 tablet = 2 mg, By Mouth, Every 4 hours, PRN as needed for pain, # 16 tablet, 0 Refills, Acute 12/03/19 6:54:00 EDT, 11/01/19 6:53:00 EDT, Tablet, [facility] #[id number], Partial fill upon patient request, 163, cm, 10/31/19 23:53:00 EDT, Height,... Start Date: 11/01/19 Stop Date: 12/03/19 Status: Ordered ferrous fumarate 325 mg oral tablet 1 tablet = 325 mg, By Mouth, 2 times a day, # 60 tablet, 2 Refills, Maintenance, 11/01/19 7:34:00 EDT, Tablet, [facility] #[id number], 163, cm, 10/31/19 23:53:00 EDT, Height, 121.3, kg, 10/28/2020:27:00 EDT, Dry Weight Start Date: 11/01/19 Stop Date: 01/30/20 Status: Ordered Freestyle Lite Monitor See Instructions, # 1 each, Refills 0, Tot. Refills 0, Maintenance, For blood glucose checks 4x/day. Diagnoses: Type 2 diabetes and , 07/17/19 16:00:00 EDT, Compound, 163, cm, 02/13/19 10:33:00 EST, Height, 113.18, kg, 02/04/19 16:43:00 E... Start Date: 07/17/19 Status: Ordered ibuprofen 600 mg oral tablet 600 mg, 1, tablet, By Mouth, 4 times a day, PRN, # 40 tablet, Refills 0, Tot. Refills 0, Acute 12/03/19 6:54:00 EDT, for pain, 11/01/19 6:53:00 EDT, Route to Pharmacy Electronically, [facility] #[id number], 163, cm, 10/31/19 23:53:00 EDT, Height,... Start Date: 11/01/19 Stop Date: 12/03/19 Status: Ordered metFORMIN 500 mg oral tablet 1 tablet = 500 mg, By Mouth, 2 times a day, # 60 tablet, 5 Refills, Maintenance, 07/11/20 15:32:00 EDT, Tablet, [facility] #[id number], 163, cm, 02/13/19 10:33:00 EST, Height, 113.18, kg, 02/04/19 16:43:00 EST, Dry Weight Start Date: 07/11/20 Stop Date: 01/07/21 Status: Ordered One Touch Delica Lancets See [...] Dry W... Start Date: 08/01/19 Status: Ordered simethicone 80 mg oral tablet 1 tablet = 80 mg, Chew, 3 times a day after meals and bedtime, PRN for gas, # 60 tablet, 0 Refills,Acute 12/03/19 6:54:00 EDT, 11/01/19 6:54:00 EDT, Tablet, [facility] #[id number], 163, cm, 10/31/19 23:53:00 EDT, Height, 121.3, kg, 10/29/19 21:2... Start Date: 11/01/19 Stop Date: 12/03/19 Status: Ordered Tylenol 325 mg oral capsule 2 capsule = 650 mg, By Mouth, Every 4 hours, PRN as needed for pain, not to exceed 4000 mg/day, # 90 capsule, 0 Refills, Acute 12/03/19 6:54:00 EDT, 11/01/19 6:54:00 EDT, Capsule, [facility] #[id number], 163, cm, 10/31/19 23:53:00 EDT, Height, 12... Start Date: 11/01/19 Stop Date: 12/03/19 Status: Ordered Problem List Condition Effective Dates Status Health Status Inform ant Previous section(Confirmed) Active Type 2 diabetes mellitus(Confirmed) Active Social History Social History Type Response Smoking Status Never (less than 100 in lifetime); Tobacco user in household: No entered on: 02/16/18 Sex
--- OUTSIDE RECORDS SUMMARY | 2023-07-24 07:32 | XMS_ITS | Continuity of Care Document ---
Author Organization [facility] Address [address] [place] [address]- Care Team Providers Care Court Security Officer Name Role Phone Patrice NELSON, Glendy Cortez Primary Care Physician ( [phone] Encounter [facility] [place] Date(s): 04/06/21 - 05/06/[address] [address] Attending Physician: AdmFranco hahn Admitting Physician: AdmtrFranco Referring Physician: Admtr, Ar8 Allergies, Adverse Reactions, Alerts Substance Reaction Severity Status oxyCODONE 1 C/O: itching Active 1pt prefers not to get oxycodone it causes to much itching Immunizations Given and Recorded Vaccine Date Status Refusal Reason influenza virus vaccine, inactivated 01/08/21 Randolph rded influenza virus vaccine, inactivated 01/15/19 Randolph rded influenza virus vaccine, inactivated 01/17/18 Randolph rded influenza virus vaccine, inactivated 01/16/17 Give n influenza virus vaccine, inactivated 01/14/16 Give n influenza virus vaccine, inactivated 1 03/05/13 Gi eleanor SARS-CoV-2 (COVID-19) mRNA BNT-162b2 vac 04/27/20 Recorded SARS-CoV-2 (COVID-19) mRNA BNT-162b2 vac 04/06/20 Recorded hepatitis B adult vaccine 08/16/17 Recorded tetanus/diphtheria/pertussis, acel(Tdap) 01/16/17 Given tetanus/diphtheria/pertussis, acel(Tdap) 11/03/15 Recorded tetanus/diphtheria/pertussis, acel(Tdap) 10/13/15 Given 1Admin Note: VIS Medications Alcohol Pads See [...] tablet, 11 Refills, Maintenance, 07/16/20 10:21:00EDT, Tablet, [facility] #[id number], 162, cm, 07/16/20 9:30:00 EDT, Height, 121.3, [...]
--- OUTSIDE RECORDS SUMMARY | 2023-07-24 07:33 | XMS_ITS | Continuity of Care Document ---
Author Organization [facility] Address [address] [place] [address]- Care Team Providers Care Senior Java Architect Name Role Phone Glendy Ibrahim MD Primary Care Physician [place] [facility] [place] Date(s): 10/18/20 - 11/17/20 [facility] [address] [place] [address]- Allergies, Adverse Reactions, Alerts Substance Reaction Severity [...] tablet, 11 Refills, Maintenance, 07/16/20 10:21:00EDT, Tablet, [facility] #[id number], 162, cm, 07/16/20 9:30:00 EDT, Height, 121.3, [...]
--- OUTSIDE RECORDS SUMMARY | 2023-07-24 07:33 | XMS_ITS | Continuity of Care Document ---
Author Organization [facility] Address [address] [place] [address]- Care Team Providers Care Meter Mechanic Name Role Phone Glendy Ibrahim MD Primary Care Physician [place] [facility] [place](s): 09/23/20 - 10/23/20 [facility] [address] [place] [address]- Allergies, Adverse Reactions, Alerts Substance Reaction Severity [...] tablet, 11 Refills, Maintenance, 07/16/20 10:21:00EDT, Tablet, [facility] #[id number], 162, cm, 07/16/20 9:30:00 EDT, Height, 121.3, [...]
--- OUTSIDE RECORDS SUMMARY | 2023-07-24 07:33 | XMS_ITS | Continuity of Care Document ---
Author Organization [facility] Address [address] [place] [address]- Care Team Providers Care Wildlife Ecologist Name Role Phone Alissa NELSON, Kaykay Novoa Primary Care Physician [place] [facility] [place](s): 06/16/23 - 07/16/[address] [address] Attending Physician: Admtr, Franco Admitting Physician: Admtr, Franco Referring Physician: Admtr, Ar8 Allergies, Adverse Reactions, Alerts Substance Reaction Severity Status oxyCODONE 1 C/O: itching Active 1pt prefers not to get oxycodone it causes to much itching Immunizations Given and Recorded Vaccine Date Status Refusal Reason SARS-CoV-2 (COVID-19) mRNA BNT-162b2 vac 02/08/21 Recorded SARS-CoV-2 (COVID-19) mRNA BNT-162b2 vac 04/27/20 Recorded SARS-CoV-2 (COVID-19) mRNA BNT-162b2 vac 04/06/20 Recorded influenza virus vaccine, inactivated 01/08/21 Randolph rded influenza virus vaccine, inactivated 01/15/19 Randolph rded influenza virus vaccine, inactivated 01/17/18 Randolph rded influenza virus vaccine, inactivated 01/16/17 Give n influenza virus vaccine, inactivated 01/14/16 Give n influenza virus vaccine, inactivated 1 03/05/13 Gi eleanor hepatitis B adult vaccine 08/16/17 Recorded tetanus/diphtheria/pertussis, acel(Tdap) 01/16/17 Given tetanus/diphtheria/pertussis, acel(Tdap) 11/03/15 Recorded tetanus/diphtheria/pertussis, acel(Tdap) 10/13/15 Given 1Admin Note: VIS Medications Alcohol Pads See Instructions, # 50 each, Maintenance, Use prior to Trulicity injections, 04/26/22 18:46:00 EST,Supply, 162, cm, 04/26/22 17:29:00 EST, Height Start Date: 04/26/22 Status: Ordered escitalopram 20 mg oral tablet 1 tablet = 20 mg, By Mouth, Daily, # 90 tablet, 0 Refills, Maintenance, 06/14/22 13:22:00 EDT, Tablet, [facility] #[id number], Partial fill upon patient request if the prescription is for a schedule II opioid drug., 162, cm, 06/14/22 11:33:00 EDT... Start Date: 06/14/22 Stop Date: 09/12/22 Status: Ordered Trulicity Pen 0.75 mg/0.5 mL subcutaneous solution 0.5 mL = 0.75 mg, Subcutaneous Injection, Every week, rotate injection sites, # 2 mL, 0 Refills, Maintenance, 04/26/22 18:46:00 EST, Solution, [facility] #[id number], Partial fill upon patient request if the prescription is for a schedule II opio... Start Date: 04/26/22 Stop Date: 05/24/22 Status: Ordered Problem List Condition Confirmation Course Effective Dates Status Health St atus Informant Test anxiety Confirmed Active Breast lump in female Confirmed Active Previous section Confirmed Active S/P gastric sleeve procedure Confirmed Active Severe obesity Confirmed Active Type 2 diabetes mellitus Confirmed Active Social History Social History Type Response Smoking Status Never (less than 100 in lifetime); Tobacco user in household: No entered on: 04/26/22 Sex Patient Care team information Care Team Personnel Name: Padmini Yadav RN Position: [facility] OB RN Member Role: Primary Care Nurse Name: Kaykay Maxwell MD Position: Reference Physician Member Role: PCP Address: Address: [address] [place] [address]- Name: Mera Hernandez RN Position: [facility] RN Supv Member Role: Primary Care Nurse Name: Ki Collins MD Position: [facility] SATELLITE TELEVISION INSTALLER MD Member Role: [employer]etime SATELLITE TELEVISION INSTALLER Physician Address: Address: [address] [place] [address] [place], [place] [address] Care Team Related Persons Name: YG BHATT Address: home [address] [place] [address] Name: FELICITAS BRAXTON Address: [employer] Address: home [address] [place] [address] [place] Name: JOHN BRAXTON Address: [employer] Address: [address]
--- OUTSIDE RECORDS SUMMARY | 2023-07-24 07:33 | XMS_ITS | Continuity of Care Document ---
Author Organization [facility] Address [address] [place] [address]- Care Team Providers Care Recreational Therapy Technician Name Role Phone Patrice NELSON, Glendy Cortez Primary Care Physician En[place] [facility] [place] Date(s): 05/24/19 - 06/03/19 [facility] [address] [address]- [facility] Attending Physician: Franco Kamara Admitting Physician: Franco Kamara Referring Physician: AdmtrFranco Allergies, Adverse Reactions, Alerts Substance Reaction Severity [...]
--- OUTSIDE RECORDS SUMMARY | 2023-07-24 07:33 | XMS_ITS | Continuity of Care Document ---
Author Organization [facility] Address [address] [place] [address]- Care Team Providers Care Electrostatic Painter Name Role Phone Glenda Forbes MD Primary Care Physician [place] [facility] [place](s): 05/30/22 - 07/28/22 [facility] [address]- Attending Physician: Glenda Forbes MD Admitting Physician: Glenda Forbes MD Referring Physician: Glenda Forbes MD Allergies, Adverse Reactions, Alerts Substance Reaction [...] 0 Refills, Maintenance, 06/14/22 13:22:00 EDT, Tablet, [facility] #[id number], Partial fill upon patient request if the prescription is for a schedule II opioid drug., 162, cm, 06/14/22 11:33:00 EDT... Start Date: 06/14/22 Stop Date: 09/12/22 Status: Ordered Trulicity Pen 0.75 mg/0.5 mL subcutaneous solution 0.5 mL = 0.75 mg, Subcutaneous Injection, Every week, rotate injection sites, # 2 mL, 0 Refills, Maintenance, 04/26/22 18:46:00 EST, Solution, [facility] #[id number], Partial fill upon patient request if the [...] Team Personnel Name: Padmini Yadav RN Position: [facility] OB RN Member Role: Primary Care Nurse Name: Glenda Forbes MD Position: [facility] Primary Care Physician Member Role: PCP Address: Address: [address] [place] [address]- Name: Mera Hernandez RN Position: [facility] RN Supv Member Role: Primary Care Nurse Name: Tiffany Palmer RN Position: [facility] OB RN Member Role: Primary Care Nurse Name: Ki Collins MD Position: [facility] CLINICAL SYSTEMS EDUCATOR MD Member Role: [employer]etime CLINICAL SYSTEMS EDUCATOR Physician Address: Address: [address] [place], [place] [address], [place] [address]- Care Team Related Persons Name: YG BHATT Address: [place] [address] Name: FELICITAS BRAXTON Address: [employer] Address: [address] Name: JOHN BRAXTON Address: [employer] Address: [address]
--- OUTSIDE RECORDS SUMMARY | 2023-07-24 07:33 | XMS_ITS | Continuity of Care Document ---
Author Organization [facility] ter Address [address] [place] [address]- Care Team Providers Care Field Training Agent Name Role Phone Glendy Ibrahim MD Primary Care Physician En[place] [facility] [place] Date(s): 10/25/19 - 10/25/[address] [address]- [facility] Discharge Disposition: A-D/C Home Attending Physician: Marie Smith MD Admitting Physician: Marie Smith MD Referring Physician: Marie Smith MD Allergies, Adverse Reactions, Alerts Substance Reaction [...] mg, By Mouth, 2 times a day, for 30 days, # 60 tablet, 11 Refills, Hard Stop 07/11/20 15:32:00 EDT, 07/17/19 15:32:00 EDT, Tablet, [facility] #[id number], 163, cm, 02/13/19 10:33:00 EST, Height, 113.18, kg, 02/04/19 16:43:00 EST, D... Start Date: 07/17/19 Stop Date: 07/11/20 Status: Ordered metFORMIN 500 mg oral tablet 1 tablet = 500 mg, By Mouth, 2 times a day, # 60 tablet, 5 Refills, Maintenance, 07/11/20 15:32:00 EDT, Tablet, [facility][id number], 163, cm, 02/13/19 10:33:00 EST, Height, 113.18, [...] section(Confirmed) Active Type 2 diabetes mellitus(Confirmed) Active Vital Signs Most recent to oldest [Reference Range]: 1 2 3 Blood Pressure [90-138/55-84 mm Hg] 105/63mm Hg (10/25/19 6:08 PM) 138/72mm Hg (10/25/19 6:00 PM) 123/72mm Hg (10/25/19 5:12 PM) Social History Social History Type Response Smoking Status Never (less than 100 in lifetime); Tobacco user in household: No entered on: 02/16/18 Sex
--- OUTSIDE RECORDS SUMMARY | 2023-07-24 07:33 | XMS_ITS | Continuity of Care Document ---
Author Organization [facility] Address [address] [place] [address]- Care Team Providers Care [employer] Assistant Manager Name Role Phone Glendy Ibrahim MD Primary Care Physician [place] [facility] [place] 10/16/20 - 11/15/20 [facility] [address] [place] [address]- Allergies, Adverse Reactions, Alerts Substance Reaction Severity [...] tablet, 11 Refills, Maintenance, 07/16/20 10:21:00EDT, Tablet, [facility] #[id number], 162, cm, 07/16/20 9:30:00 EDT, Height, 121.3, [...]
--- OUTSIDE RECORDS SUMMARY | 2023-07-24 07:33 | XMS_ITS | Continuity of Care Document ---
Author Organization [facility] Address [address] [place] [address]- Care Team Providers Care University Extension Specialist Name Role Phone Glendy Ibrahim MD Primary Care Physician [place] [facility] [place] 09/25/20 - 10/25/20 [facility] [address] [place] [address]- Allergies, Adverse Reactions, Alerts Substance Reaction Severity [...] tablet, 11 Refills, Maintenance, 07/16/20 10:21:00EDT, Tablet, [facility] #[id number], 162, cm, 07/16/20 9:30:00 EDT, Height, 121.3, [...]
--- OUTSIDE RECORDS SUMMARY | 2023-07-24 07:33 | XMS_ITS | Continuity of Care Document ---
Author Organization [facility] Address [address] [place] [address]- Care Team Providers Care End User Consultant Name Role Phone Glenda Forbes MD Primary Care Physician Encounter [facility] [place] Date(s): 05/11/23 - 06/22/[address] [address]- Encounter Diagnosis Other intervertebral disc degeneration, lumbosacral region(Final) - Discharge Disposition: A-D/C Home Attending Physician: Glenda Forbes MD Admitting Physician: Glenda Forbes MD Referring Physician: Kaykay Maxwell MD Allergies, Adverse Reactions, Alerts Substance Reaction [...] 0 Refills, Maintenance, 06/14/22 13:22:00 EDT, Tablet, [facility] #[id number], Partial fill upon patient request if the prescription is for a schedule II opioid drug., 162, cm, 06/14/22 11:33:00 EDT... Start Date: 06/14/22 Stop Date: 09/12/22 Status: Ordered Trulicity Pen 0.75 mg/0.5 mL subcutaneous solution 0.5 mL = 0.75 mg, Subcutaneous Injection, Every week, rotate injection sites, # 2 mL, 0 Refills, Maintenance, 04/26/22 18:46:00 EST, Solution, [facility] #[id number], Partial fill upon patient request if the [...] Team Personnel Name: Padmini Yadav RN Position: [facility] OB RN Member Role: Primary Care Nurse Name: Glenda Forbes MD Position: [facility] Physician - Primary Care Member Role: PCP Address: Address: [address] [place] [address]- Name: Mera Hernandez RN Position: [facility] RN Supv Member Role: Primary Care Nurse Name: Ki Collins MD Position: [facility] PLASTICS HEAT WELDER MD Member Role: Lifetime PLASTICS HEAT WELDER Physician Address: Address: [address] [place], [place] [address], [place] [address]- Care Team Related Persons Name: YG BHATT Address: [place] [address] Name: FELICITAS BRAXTON Address: [employer] Address: [address] Name: JOHN BRAXTON Address: [employer] Address: [address]
--- OUTSIDE RECORDS SUMMARY | 2023-07-24 07:33 | XMS_ITS | Continuity of Care Document ---
Author Organization [facility] Address [address] [facility] [place] [address]- Care Team Providers Care Ten Pin Bowling Centre Manager Name Role Phone Patrice NELSON, Glendy Cortez Primary Care Physician En[place] [facility] [place] Date(s): 07/06/20 - 08/05/20 [facility] [address] [place] [address]- Allergies, Adverse Reactions, Alerts Substance Reaction Severity [...] tablet, 11 Refills, Maintenance, 07/16/20 10:21:00EDT, Tablet, [facility] #[id number], 162, cm, 07/16/20 9:30:00 EDT, Height, 121.3, [...] Dry W... Start Date: 08/01/19 Status: Ordered Silvadene 1% cream 1 application, Topically, Daily, for 14 days, Apply to clean dry affected skin like frosting on a cake and cover with Telfa bandages, # 400 Gm, 1 Refills, Acute 09/01/20 13:38:00 EDT, 08/04/20 13:38:00 EDT, Cream, [facility] #[id number], Partial... Start Date: 08/04/20 Stop Date: 09/01/20 Status: Ordered Problem List Condition Effective Dates [...]
--- OUTSIDE RECORDS SUMMARY | 2023-07-24 07:33 | XMS_ITS | Continuity of Care Document ---
Author Organization [facility] ter Address [address] [place] [address]- Care Team Providers Care Cash Office Worker Name Role Phone Patrice NELSON, Glendy Cortez Primary Care Physician [place] [facility] [place](s[place] 10/18/19 - 10/18/[address] [address]- [facility] Discharge Disposition: A-D/C Home Attending Physician: Italia Felix MD Admitting Physician: [...] kg, ... Start Date: 07/17/19 Status: Ordered aspirin 81 mg oral tablet 2 tablet = 162 mg, By Mouth, Daily, # 60 tablet, 5 Refills, Maintenance, 08/01/19 13:22:00 EDT, Tablet, [facility] #[id number], 163, cm, 02/13/19 10:33:00 EST, Height, 113.18, kg, 02/04/19 16:43:00 EST, Dry Weight Start Date: 08/01/19 Status: Ordered Colace sodium 100 mg oral capsule 100 mg, 1, capsule, By Mouth, 2 times a day, # 28 capsule, Refills 0, Tot. Refills 0, Maintenance, 02/04/19 10:33:59 EST, Print Requisition Start Date: 02/04/19 Stop Date: 02/18/19 Status: Ordered Freestyle Lite Monitor See Instructions, [...] 07/11/20 15:32:00 EDT, 07/17/19 15:32:00 EDT, Tablet, [facility] #[id number], 163, cm, 02/13/19 10:33:00 EST, Height, 113.18, kg, 02/04/19 16:43:00 EST, D... Start Date: 07/17/19 Stop Date: 07/11/20 Status: Ordered metFORMIN 500 mg oral tablet 1 tablet = 500 mg, By Mouth, 2 times a day, # 60 tablet, 5 Refills, Maintenance, 07/11/20 15:32:00 EDT, Tablet, [facility] #[id number], 163, cm, 02/13/19 10:33:00 EST, Height, 113.18, kg, 02/04/19 16:43:00 EST, Dry Weight Start Date: 07/11/20 Stop Date: 01/07/21 Status: Ordered MiraLax oral powder for reconstitution = 17 Gm, By Mouth, Daily, dissolve in water before taking, # 255 Gm, 0 Refills, Maintenance, 08/14/18 19:17:50 EDT, REC Powder Start Date: 08/14/18 Status: Ordered One Touch Delica Lancets See [...] Dry W... Start Date: 08/01/19 Status: Ordered Right wrist splint for carpal [...]
--- OUTSIDE RECORDS SUMMARY | 2023-07-24 07:33 | XMS_ITS | Continuity of Care Document ---
Author Organization [facility] Address [address] [place] [address]- Care Team Providers Care Oil Laboratory Analyst Name Role Phone Glenda Forbes MD Primary Care Physician En[place] [facility] [place] Date(s): 06/28/22 - 07/28/22 [facility]/[address] [address]- Attending Physician: Franco Kamara Admitting Physician: AdmFranco hahn Referring Physician: AdmtrFranco Allergies, Adverse Reactions, Alerts [...] 0 Refills, Maintenance, 06/14/22 13:22:00 EDT, Tablet, [facility] #[id number], Partial fill upon patient request if the prescription is for a schedule II opioid drug., 162, cm, 06/14/22 11:33:00 EDT... Start Date: 06/14/22 Stop Date: 09/12/22 Status: Ordered Trulicity Pen 0.75 mg/0.5 mL subcutaneous solution 0.5 mL = 0.75 mg, Subcutaneous Injection, Every week, rotate injection sites, # 2 mL, 0 Refills, Maintenance, 04/26/22 18:46:00 EST, Solution, [facility] #[id number], Partial fill upon patient request if the [...] in household: No entered on: 04/26/22 Sex Note * Event Display: Non [facility] Lab Results Authored Date: * Event Display: Non [facility] Lab Results Authored Date: * Event Display: Non [facility] Lab Results Authored Date: * Event Display: Non [facility] Lab Results Authored Date: * Event Display: Non [facility] Lab Results Authored Date: * Event Display: Non [facility] Lab Results Authored Date: * Event Display: Non BH Lab Results Authored Date: Patient Care team information Care Team Personnel Name: Padmini Yadav RN Position: [facility] RN Member Role: Primary Care Nurse Name: Glenda Forbes MD Position: [facility] Primary Care Physician Member Role: PCP Address: Address: [address] [place] [address]- Name: Mera Hernandez RN Position: [facility] RN Supv Member Role: Primary Care Nurse Name: Tiffany Palmer RN Position: [facility] OB RN Member Role: Primary Care Nurse Name: Ki Collins MD Position: [facility] PUBLIC HEALTH SOCIAL WORKER MD Member Role: Lifetime PUBLIC HEALTH SOCIAL WORKER Physician Address: Address: [address] [place] [address] [facility], [place] [address]- Care Team Related Persons Name: YG BHATT Address: [address] [address] Name: FELICITAS BRAXTON Address: [employer] Address: [address] Name: JOHN BRAXTON Address: [employer] Address: home [address] [place] [address]
--- OUTSIDE RECORDS SUMMARY | 2023-07-24 07:33 | XMS_ITS | Continuity of Care Document ---
Author Organization [facility] ter Address [address] [place] [address]- Care Team Providers Care Outside Sales Representative Insurance Name Role Phone Patrice NELSON, Glendy Cortez Primary Care Physician En[place] [facility] [place] Date(s): 10/18/19 - 10/18/[address] [address]- [facility] Discharge Disposition: A-D/C Home Attending Physician: Marie [...] 5 Refills, Maintenance, 08/01/19 13:22:00 EDT, Tablet, [facility] #[id number], 163, cm, 02/13/19 10:33:00 EST, Height, 113.18, [...] 07/11/20 15:32:00 EDT, 07/17/19 15:32:00 EDT, Tablet, [facility] #[id number], 163, cm, 02/13/19 10:33:00 EST, Height, 113.18, kg, 02/04/19 16:43:00 EST, D... Start Date: 07/17/19 Stop Date: 07/11/20 Status: Ordered metFORMIN 500 mg oral tablet 1 tablet = 500 mg, By Mouth, 2 times a day, # 60 tablet, 5 Refills, Maintenance, 07/11/20 15:32:00 EDT, Tablet, [facility] #[id number], 163, cm, 02/13/19 10:33:00 EST, Height, 113.18, [...] to oldest [Reference Range]: 1 2 3 Oxygen Saturation [94-100 %] 100 % (10/18/19 4:00 PM) 100 % (10/18/19 3:46 PM) 100 % (10/18/19 3:30 PM) Pulse Rate [55-90 bpm] 99 bpm *H* (10/18/19 2:46 PM) 102 bpm *H* (10/18/19 2:38 PM) Blood Pressure [90-138/55-84 mm Hg] 101/66mm Hg (10/18/19 4:00 PM) 113/59mm Hg (10/18/19 3:46 PM) 96/43mm Hg (10/18/19 3:30 PM) Respiratory Rate [16-30 br/min] 20 br/min (10/18/19 2:38 PM) Temperature [96.8-100.4 DegF] 98.1 DegF (10/18/19 2:38 PM) Blood pressure sites Arm, right (10/18/19 4:00 PM) Arm, right (10/18/19 3:46 PM) Arm, right (10/18/19 3:30 PM) Temperature Route Oral (10/18/19 2:38 PM) Social History Social History Type Response Smoking Status Never (less than 100 in lifetime); Tobacco user in household: No entered on: 02/16/18 Sex
--- OUTSIDE RECORDS SUMMARY | 2023-07-24 07:33 | XMS_ITS | Continuity of Care Document ---
Author Organization [facility] ter Address [address] [place] [address]- Care Team Providers Care Assembly Line Brazer Name Role Phone Glendy Ibrahim MD Primary Care Physician ( [phone] [place] [facility] [place] - 11/01/[address] [address] Discharge Disposition: A-D/C Home Attending Physician: Marie [...] 11/01/19 6:53:00 EDT, Route to Pharmacy Electronically, [facility] #[id number], 163, cm, 10/31/19 23:53:00 EDT, Height, 121.... Start Date: 11/01/19 Status: Ordered Dilaudid 2 mg oral tablet 1 tablet = 2 mg, By Mouth, Every 4 hours, PRN as needed for pain, # 16 tablet, 0 Refills, Acute 12/03/19 6:54:00 EDT, 11/01/19 6:53:00 EDT, Tablet, [facility] #[id number], Partial fill upon patient request, 163, cm, 10/31/19 23:53:00 EDT, Height,... Start Date: 11/01/19 Stop Date: 12/03/19 Status: Ordered ferrous fumarate 325 mg oral tablet 1 tablet = 325 mg, By Mouth, 2 times a day, # 60 tablet, 2 Refills, Maintenance, 11/01/19 7:34:00 EDT, Tablet, [facility] #[id number], 163, cm, 10/31/19 23:53:00 EDT, Height, 121.3, [...] 11/01/19 6:53:00 EDT, Route to Pharmacy Electronically, [facility] #[id number], 163, cm, 10/31/19 23:53:00 EDT, Height,... Start Date: 11/01/19 Stop Date: 12/03/19 Status: Ordered metFORMIN 500 mg oral tablet 1 tablet = 500 mg, By Mouth, 2 times a day, # 60 tablet, 5 Refills, Maintenance, 07/11/20 15:32:00 EDT, Tablet, [facility] #[id number], 163, cm, 02/13/19 10:33:00 EST, Height, 113.18, [...] 12/03/19 6:54:00 EDT, 11/01/19 6:54:00 EDT, Tablet, [facility] #[id number], 163, cm, 10/31/19 23:53:00 EDT, Height, 121.3, kg, 10/29/19 21:2... Start Date: 11/01/19 Stop Date: 12/03/19 Status: Ordered Tylenol 325 mg oral capsule 2 capsule = 650 mg, By Mouth, Every 4 hours, PRN as needed for pain, not to exceed 4000 mg/day, # 90 capsule, 0 Refills, Acute 12/03/19 6:54:00 EDT, 11/01/19 6:54:00 EDT, Capsule, [facility] #[id number], 163, cm, 10/31/19 23:53:00 EDT, Height, 12... Start Date: 11/01/19 Stop Date: 12/03/19 Status: Ordered Problem List Condition Effective Dates Status Health Status Inform ant Previous section(Confirmed) Active Type 2 diabetes mellitus(Confirmed) Active Procedures Procedure Date Related Diagnosis Body Site Status delivery only; 10/30/19 C ompleted Vital Signs Most recent to oldest [Reference Range]: 1 2 3 Height 163 cm (11/01/19 8:00 AM) 163 cm (11/01/19 12:00 AM) 163 cm (10/31/19 7:40 PM) Weight 121.3 kg (10/29/19 8:52 PM) Oxygen Saturation [94-100 %] 99 % (11/01/19 8:00 AM) 99 % (11/01/19 12:00 AM) 99 % (10/31/19 4:00 PM) Pulse Rate [55-90 bpm] 97 bpm *H* (11/01/19 8:00 AM) 101 bpm *H* (11/01/19 12:00 AM) 115 bpm *H* (10/31/19 7:40 PM) Body Mass Index [18.5-24.99] 45.65 *>HHI* (10/29/19 8:52 PM) Blood Pressure [90-138/55-84 mm Hg] 114/62mm Hg (11/01/19 8:00 AM) 131/80mm Hg (11/01/19 12:00 AM) 114/69mm Hg (10/31/19 4:00 PM) Respiratory Rate [16-30 br/min] 18 br/min (11/01/19 8:00 AM) 18 br/min (11/01/19 4:52 AM) 20 br/min (11/01/19 12:00 AM) Temperature [96.8-100.4 DegF] 98.3 DegF (11/01/19 8:00 AM) 98.4 DegF (11/01/19 12:00 AM) 98 DegF (10/31/19 4:00 PM) Mode of Delivery (Oxygen) Room air (11/01/19 8:00 AM) Room air (11/01/19 12:00 AM) Room air (10/31/19 4:00 PM) Blood pressure sites Arm, right (11/01/19 8:00 AM) Arm, right (11/01/19 12:00 AM) Arm, left (10/31/19 4:00 PM) Temperature Route Oral (11/01/19 8:00 AM) Oral (11/01/19 12:00 AM) Oral (10/31/19 4:00 PM) Dry Weight 121.3 kg (10/29/19 8:52 PM) Weight Obtained Via Patient/family state d (10/29/19 8:52 PM) Dry Weight Obtained Via Patient/family s tated (10/29/19 8:52 PM) Social History Social History Type Response Smoking Status Never (less than 100 in lifetime); Tobacco user in household: No entered on: 02/16/18 Sex
--- OUTSIDE RECORDS SUMMARY | 2023-07-24 07:33 | XMS_ITS | Continuity of Care Document ---
Author Organization [facility] Address [address] [place] [address] [address] [place] [address]- Care Team Providers Care Surveillance Systems Engineer Name Role Phone Glendy Ibrahim MD Primary Care Physician ( [phone] Encounter [facility] Date(s): 03/06/19 - 03/16/[address] [place] [address]- [facility] Attending Physician: Admtr, Filemon8 Admitting Physician: AdmtrFranco Referring Physician: Admtr, Ar8 [...] Compound Start Date: 02/16/18 Status: Ordered ibuprofen 400 mg oral tablet 400 mg, 1, tablet, By Mouth, Every 4 hours, PRN, # 60 tablet, Refills 0, Tot. Refills 0, Acute 04/02/19 18:19:00 EST, for pain, 10/17/18 18:16:10 EDT, Route to Pharmacy Electronically, [id number], [facility] [id number] Start Date: 10/17/18 Stop Date: 04/02/19 Status: Ordered ibuprofen 600 mg oral tablet [...]
--- OUTSIDE RECORDS SUMMARY | 2023-07-24 07:33 | XMS_ITS | Continuity of Care Document ---
Author Organization [facility] Address [address] [place] [address]- Care Team Providers Care Department Administrator Name Role Phone Patrice NELSON, Glendy Cortez Primary Care Physician Encounter [facility] [place] Date(s): 11/25/19 - 12/25/19 [facility] [address] [place] [address]- [facility] Attending Physician: Franco Kamara Admitting Physician: AdmtrFranco Referring Physician: Admtr, Ar8 [...] 11/01/19 6:53:00 EDT, Route to Pharmacy Electronically, [facility] #[id number], 163, cm, 10/31/19 23:53:00 EDT, Height, 121.... Start Date: 11/01/19 Status: Ordered ferrous fumarate 325 mg oral tablet 1 tablet = 325 mg, By Mouth, 2 times a day, # 60 tablet, 2 Refills, Maintenance, 11/01/19 7:34:00 EDT, Tablet, [facility] #[id number], 163, cm, 10/31/19 23:53:00 EDT, Height, 121.3, [...] 5 Refills, Maintenance, 07/11/20 15:32:00 EDT, Tablet, [facility] #[id number], 163, cm, 02/13/19 10:33:00 EST, Height, 113.18, [...]
--- OUTSIDE RECORDS SUMMARY | 2023-07-24 07:33 | XMS_ITS | Continuity of Care Document ---
Author Organization [facility] Address Unknown Care Team Providers Care Pigs Feet Cleaner Name Role Phone Glendy Ibrahim MD Primary Care Physician Encounter [facility] [place] [id number] Date(s): 01/25/21 - 02/24/21 [facility] Attending Physician: Franco Kamara Admitting Physician: Franco Kamara Referring Physician: Franco Kamara Allergies, Adverse Reactions, Alerts Substance Reaction Severity [...] 16:43:00 E... Start Date: 07/17/19 Status: Ordered lidocaine 4% topical gel 1 application, Topically, 3 times a day, for 14 days, # 240 mL, 2 Refills, Acute 03/08/21 13:30:00 EST, 01/25/21 13:30:00 EDT, [facility] #[id number], Partial fill upon patient request if the prescription is for a schedule II opioid drug., 1 appl... Start Date: 01/25/21 Stop Date: 03/08/21 Status: Ordered metFORMIN 500 mg oral tablet 1 tablet = 500 mg, By Mouth, 2 times a day, # 60 tablet, 11 Refills, Maintenance, 07/16/20 10:21:00EDT, Tablet, [facility] #[id number], 162, cm, 07/16/20 9:30:00 EDT, Height, 121.3, [...]
--- OUTSIDE RECORDS SUMMARY | 2023-07-24 07:33 | XMS_ITS | Continuity of Care Document ---
Author Organization [facility] Address [address] [place] [address]- Care Team Providers Care Community Living Instructor Name Role Phone Glenda Forbes MD Primary Care Physician Encounter [facility] [place] Date(s): 11/10/21 - 12/30/21 [facility]/[place] [address]- Attending Physician: Glenda Forbes MD Admitting Physician: Glenda Forbes MD Allergies, Adverse Reactions, [...] tablet, 11 Refills, Maintenance, 07/16/20 10:21:00EDT, Tablet, [email or web address] #[id number], 162, cm, 07/16/20 9:30:00 EDT, Height, 121.3, [...] Date: 08/01/19 Status: Ordered Problem List Condition Confirmation Course Effective Dates Status Health St atus Informant Test anxiety Confirmed Active Breast lump in female Confirmed Active Previous section Confirmed Active Obesity Confirmed Active Health care maintenance Confirmed Active Type 2 diabetes mellitus Confirmed Active Social History Social History Type Response Smoking Status Never (less than 100 in lifetime); Tobacco user in household: No entered on: 02/16/18 Sex Patient Care team information Personnel Name: Glenda Forbes MD Address: Address: [address] [place] [address]
--- OUTSIDE RECORDS SUMMARY | 2023-07-24 07:33 | XMS_ITS | Continuity of Care Document ---
Author Organization [facility] ter Address [address] [place] [address]- Care Team Providers Care Mender Knit Goods Name Role Phone Patrice NELSON, Glendy Cortez Primary Care Physician Encounter [facility] [place] Date(s): 09/27/19 - 11/02/[address] [address]- [facility] Attending Physician: Italia Felix MD Admitting Physician: Italia Felix MD Referring Physician: Marie Smith MD Allergies, [...] 11/01/19 6:53:00 EDT, Route to Pharmacy Electronically, [facility] #[id number], 163, cm, 10/31/19 23:53:00 EDT, Height, 121.... Start Date: 11/01/19 Status: Ordered Dilaudid 2 mg oral tablet 1 tablet = 2 mg, By Mouth, Every 4 hours, PRN as needed for pain, # 16 tablet, 0 Refills, Acute 12/03/19 6:54:00 EDT, 11/01/19 6:53:00 EDT, Tablet, [facility] #[id number], Partial fill upon patient request, 163, cm, 10/31/19 23:53:00 EDT, Height,... Start Date: 11/01/19 Stop Date: 12/03/19 Status: Ordered ferrous fumarate 325 mg oral tablet 1 tablet = 325 mg, By Mouth, 2 times a day, # 60 tablet, 2 Refills, Maintenance, 11/01/19 7:34:00 EDT, Tablet, [facility] #[id number], 163, cm, 10/31/19 23:53:00 EDT, Height, 121.3, [...] 11/01/19 6:53:00 EDT, Route to Pharmacy Electronically, [facility] #[id number], 163, cm, 10/31/19 23:53:00 EDT, Height,... Start Date: 11/01/19 Stop Date: 12/03/19 Status: Ordered metFORMIN 500 mg oral tablet 1 tablet = 500 mg, By Mouth, 2 times a day, # 60 tablet, 5 Refills, Maintenance, 07/11/20 15:32:00 EDT, Tablet, [facility] #[id number], 163, cm, 02/13/19 10:33:00 EST, Height, 113.18, [...] 12/03/19 6:54:00 EDT, 11/01/19 6:54:00 EDT, Tablet, [facility] #[id number], 163, cm, 10/31/19 23:53:00 EDT, Height, 121.3, kg, 10/29/19 21:2... Start Date: 11/01/19 Stop Date: 12/03/19 Status: Ordered Tylenol 325 mg oral capsule 2 capsule = 650 mg, By Mouth, Every 4 hours, PRN as needed for pain, not to exceed 4000 mg/day, # 90 capsule, 0 Refills, Acute 12/03/19 6:54:00 EDT, 11/01/19 6:54:00 EDT, Capsule, [facility] #[id number], 163, cm, 10/31/19 23:53:00 EDT, Height, 12... Start Date: 11/01/19 Stop Date: 12/03/19 Status: Ordered Problem List Condition Effective Dates Status Health Status Inform ant Previous section(Confirmed) Active Type 2 diabetes mellitus(Confirmed) Active Social History Social History Type Response Smoking Status Never (less than 100 in lifetime); Tobacco user in household: No entered on: 02/16/18 Sex
--- OUTSIDE RECORDS SUMMARY | 2023-07-24 07:33 | XMS_ITS | Continuity of Care Document ---
Author Organization [facility] ter Address [address] [place] [address]- Care Team Providers Care Supervisor Stitching Department Name Role Phone Glendy Ibrahim MD Primary Care Physician Encounter [facility] Date(s): 10/25/19 - 10/25/[address] [address]- [facility] Discharge Disposition: A-D/C Home Attending Physician: Italia [...] 07/11/20 15:32:00 EDT, 07/17/19 15:32:00 EDT, Tablet, [facility] #[id number], 163, cm, 02/13/19 10:33:00 EST, Height, 113.18, kg, 02/04/19 16:43:00 EST, D... Start Date: 07/17/19 Stop Date: 07/11/20 Status: Ordered metFORMIN 500 mg oral tablet 1 tablet = 500 mg, By Mouth, 2 times a day, # 60 tablet, 5 Refills, Maintenance, 07/11/20 15:32:00 EDT, Tablet, [facility] #[id number], 163, cm, 02/13/19 10:33:00 EST, Height, 113.18, [...] Most recent to oldest [Reference Range]: 1 Weight 121.3 kg (10/25/19 3:44 PM) Weight Obtained Via Standing scale (10/25/19 3:44 PM) Social History Social History Type Response Smoking Status Never (less than 100 in lifetime); Tobacco user in household: No entered on: 02/16/18 Sex
--- OUTSIDE RECORDS SUMMARY | 2023-07-24 07:33 | XMS_ITS | Continuity of Care Document ---
Author Organization [facility] ter Address [address] [place] [address]- Care Team Providers Care Churner Name Role Phone Glendy Ibrahim MD Primary Care Physician En[place] [facility] Date(s): 10/30/19 - 12/05/[address] [address]- [facility] Attending Physician: Italia Felix MD Admitting Physician: Italia Felix MD Referring Physician: Thelma Mo NP Allergies, Adverse Reactions, Alerts Substance Reaction Severity [...] 11/01/19 6:53:00 EDT, Route to Pharmacy Electronically, [facility] #[id number], 163, cm, 10/31/19 23:53:00 EDT, Height, 121.... Start Date: 11/01/19 Status: Ordered ferrous fumarate 325 mg oral tablet 1 tablet = 325 mg, By Mouth, 2 times a day, # 60 tablet, 2 Refills, Maintenance, 11/01/19 7:34:00 EDT, Tablet, [facility] #[id number], 163, cm, 10/31/19 23:53:00 EDT, Height, 121.3, [...] 5 Refills, Maintenance, 07/11/20 15:32:00 EDT, Tablet, [facility] #[id number], 163, cm, 02/13/19 10:33:00 EST, Height, 113.18, [...]
--- OUTSIDE RECORDS SUMMARY | 2023-07-24 07:33 | XMS_ITS | Continuity of Care Document ---
Author Organization [facility] Address [address] [place] [address]- Care Team Providers Care Cooler Supervisor Name Role Phone Patrice NELSON, Glendy Cortez Primary Care Physician En[place] [facility] [place] Date(s): 05/03/19 - 06/23/19 [facility] [address] [place] [address] Attending Physician: Isa Nicolas MD Admitting Physician: Isa Nicolas MD Allergies, Adverse Reactions, Alerts Substance Reaction [...]
--- OUTSIDE RECORDS SUMMARY | 2023-07-24 07:33 | XMS_ITS | Continuity of Care Document ---
Author Organization [facility] Address Unknown Care Team Providers Care Automotive Fuel Systems Converter Name Role Phone Glendy Ibrahim MD Primary Care Physician Encounter [facility] Date(s): 02/03/21 - 03/05/21 [facility] Allergies, Adverse Reactions, Alerts Substance Reaction Severity [...] cm, 02/13/19 10:33:00 EST, Height, 113.18, kg, 11/04/1... Start Date: 07/17/19 Status: Ordered Freestyle Lite [...] Acute 03/08/21 13:30:00 EST, 01/25/21 13:30:00 EDT, [facility] #[id number], Partial fill upon patient request if the prescription is for a schedule II opioid drug., 1 appl... Start Date: 01/25/21 Stop Date: 03/08/21 Status: Ordered metFORMIN 500 mg oral tablet 1 tablet = 500 mg, By Mouth, 2 times a day, # 60 tablet, 11 Refills, Maintenance, 07/16/20 10:21:00EDT, Tablet, [facility] #[id number], 162, cm, 07/16/20 9:30:00 EDT, Height, 121.3, [...]
--- OUTSIDE RECORDS SUMMARY | 2023-07-24 07:33 | XMS_ITS | Continuity of Care Document ---
Author Organization [facility] ter Address [address] [place] [address]- Care Team Providers Care Acute Care Nursing Assistant Name Role Phone Patrice NELSON, Glendy Cortez Primary Care Physician [place] [facility] 10/11/19 - 10/11/[address] [address]- [facility] Discharge Disposition: A-D/C Home Attending Physician: Vivienne Fernandez MD Admitting Physician: Vivienne Fernandez MD Referring Physician: Marie Smith MD Allergies, [...] 5 Refills, Maintenance, 08/01/19 13:22:00 EDT, Tablet, [facility] #[id number], 163, cm, 02/13/19 10:33:00 EST, Height, 113.18, [...] 07/11/20 15:32:00 EDT, 07/17/19 15:32:00 EDT, Tablet, [facility] #[id number], 163, cm, 02/13/19 10:33:00 EST, Height, 113.18, kg, 02/04/19 16:43:00 EST, D... Start Date: 07/17/19 Stop Date: 07/11/20 Status: Ordered metFORMIN 500 mg oral tablet 1 tablet = 500 mg, By Mouth, 2 times a day, # 60 tablet, 5 Refills, Maintenance, 07/11/20 15:32:00 EDT, Tablet, [facility] #[id number], 163, cm, 02/13/19 10:33:00 EST, Height, 113.18, [...]
--- OUTSIDE RECORDS SUMMARY | 2023-07-24 07:33 | XMS_ITS | Continuity of Care Document ---
Author Organization [facility] Address [address] [place] [address]- Care Team Providers Care Painter Set Name Role Phone Patrice NELSON, Glendy Cortez Primary Care Physician En[place] [facility] [place] Date(s): 10/10/19 - 11/09/19 [facility] [address] [place] [address]- [facility] Allergies, Adverse Reactions, Alerts Substance Reaction Severity [...] 11/01/19 6:53:00 EDT, Route to Pharmacy Electronically, [facility] #[id number], 163, cm, 10/31/19 23:53:00 EDT, Height, 121.... Start Date: 11/01/19 Status: Ordered Dilaudid 2 mg oral tablet 1 tablet = 2 mg, By Mouth, Every 4 hours, PRN as needed for pain, # 16 tablet, 0 Refills, Acute 12/03/19 6:54:00 EDT, 11/01/19 6:53:00 EDT, Tablet, [facility] #[id number], Partial fill upon patient request, 163, cm, 10/31/19 23:53:00 EDT, Height,... Start Date: 11/01/19 Stop Date: 12/03/19 Status: Ordered ferrous fumarate 325 mg oral tablet 1 tablet = 325 mg, By Mouth, 2 times a day, # 60 tablet, 2 Refills, Maintenance, 11/01/19 7:34:00 EDT, Tablet, [facility] #[id number], 163, cm, 10/31/19 23:53:00 EDT, Height, 121.3, [...] 11/01/19 6:53:00 EDT, Route to Pharmacy Electronically, [facility] #[id number], 163, cm, 10/31/19 23:53:00 EDT, Height,... Start Date: 11/01/19 Stop Date: 12/03/19 Status: Ordered metFORMIN 500 mg oral tablet 1 tablet = 500 mg, By Mouth, 2 times a day, # 60 tablet, 5 Refills, Maintenance, 07/11/20 15:32:00 EDT, Tablet, [facility] #[id number], 163, cm, 02/13/19 10:33:00 EST, Height, 113.18, [...] 12/03/19 6:54:00 EDT, 11/01/19 6:54:00 EDT, Tablet, [facility] #[id number], 163, cm, 10/31/19 23:53:00 EDT, Height, 121.3, kg, 10/29/19 21:2... Start Date: 11/01/19 Stop Date: 12/03/19 Status: Ordered Tylenol 325 mg oral capsule 2 capsule = 650 mg, By Mouth, Every 4 hours, PRN as needed for pain, not to exceed 4000 mg/day, # 90 capsule, 0 Refills, Acute 12/03/19 6:54:00 EDT, 11/01/19 6:54:00 EDT, Capsule, [facility] #[id number], 163, cm, 10/31/19 23:53:00 EDT, Height, 12... Start Date: 11/01/19 Stop Date: 12/03/19 Status: Ordered Problem List Condition Effective Dates Status Health Status Inform ant Previous section(Confirmed) Active Type 2 diabetes mellitus(Confirmed) Active Social History Social History Type Response Smoking Status Never (less than 100 in lifetime); Tobacco user in household: No entered on: 02/16/18 Sex
--- OUTSIDE RECORDS SUMMARY | 2023-07-24 07:33 | XMS_ITS | Continuity of Care Document ---
Author Organization [facility] ter Address [address] [place] [address]- Care Team Providers Care Bead Maker Name Role Phone Patrice NELSON, Glendy Cortez Primary Care Physician ( [phone] Encounter [facility] Date(s): 09/27/19 - 09/27/[address] [address]- [facility] Discharge Disposition: A-D/C Home Attending Physician: Italia [...] 08/01/19 13:22:00 EDT, Tablet, [facility] #[id number], 163, cm, 02/13/19 10:33:00 EST, Height, 113.18, [...] 07/11/20 15:32:00 EDT, 07/17/19 15:32:00 EDT, Tablet, [facility] #[id number], 163, cm, 02/13/19 10:33:00 EST, Height, 113.18, kg, 02/04/19 16:43:00 EST, D... Start Date: 07/17/19 Stop Date: 07/11/20 Status: Ordered metFORMIN 500 mg oral tablet 1 tablet = 500 mg, By Mouth, 2 times a day, # 60 tablet, 5 Refills, Maintenance, 07/11/20 15:32:00 EDT, Tablet, [facility] #[id number], 163, cm, 02/13/19 10:33:00 EST, Height, 113.18, [...]
--- OUTSIDE RECORDS SUMMARY | 2023-07-24 07:33 | XMS_ITS | Continuity of Care Document ---
Author Organization [facility] Address [address] [place] [address]- Care Team Providers Care Cable Lacer Name Role Phone Patrice NELSON, Glendy Cortez Primary Care Physician [place] [facility] 07/17/19 - 07/27/19 [facility] [address] [address]- [facility] Attending Physician: Franco Kamara Admitting Physician: AdmFranco [...] Stop Date: 02/18/19 Status: Ordered Freestyle Lite Lancets See Instructions, # 120 each, Refills 11, Tot. Refills 11, Maintenance, For blood glucose checks 4 x/day. Diagnosis: Type 2 diabetes in ., 07/17/19 15:58:00 EDT, Compound, 163, cm, 02/13/19 10:33:00 EST, Height, 113.18, kg, 02/04/19 16:43... Start Date: 07/17/19 Status: Ordered Freestyle Lite Monitor See Instructions, # 1 each, Refills 0, Tot. Refills 0, Maintenance, For blood glucose checks 4x/day. Diagnoses: Type 2 diabetes and , 07/17/19 16:00:00 EDT, Compound, 163, cm, 02/13/19 10:33:00 EST, Height, 113.18, kg, 02/04/19 16:43:00 E... Start Date: 07/17/19 Status: Ordered Freestyle Lite Test Strips See Instructions, # 120 each, Refills 11, Tot. Refills 11, Maintenance, For blood glucose checks 4 x/day. Diagnosis: Type 2 diabetes in ., 07/17/19 16:01:00 EDT, Compound, 163, cm, 02/13/19 10:33:00 EST, Height, 113.18, kg, 02/04/19 16:43... Start Date: 07/17/19 Status: Ordered metFORMIN 500 mg oral tablet 1 tablet = 500 mg, By Mouth, 2 times a day, # 60 tablet, 11 Refills, Maintenance, 07/17/19 15:32:00EDT, Tablet, [facility] #[id number], 163, cm, 02/13/19 10:33:00 EST, Height, 113.18, kg, 02/04/19 16:43:00 EST, Dry Weight Start Date: 07/17/19 Stop Date: 07/11/20 Status: Ordered MiraLax oral powder for reconstitution [...]
--- OUTSIDE RECORDS SUMMARY | 2023-07-24 07:33 | XMS_ITS | Continuity of Care Document ---
Author Organization [facility] Address [address] [place] [address]- Care Team Providers Care Technology Risk Intern Name Role Phone Patrice NELSON, Glendy Cortez Primary Care Physician Encounter [facility] Date(s): 11/21/19 - 12/21/19 [facility] [address] [place] [address]- [facility] Allergies, Adverse Reactions, Alerts Substance Reaction Severity [...] 11/01/19 6:53:00 EDT, Route to Pharmacy Electronically, [facility] #[id number], 163, cm, 10/31/19 23:53:00 EDT, Height, 121.... Start Date: 11/01/19 Status: Ordered ferrous fumarate 325 mg oral tablet 1 tablet = 325 mg, By Mouth, 2 times a day, # 60 tablet, 2 Refills, Maintenance, 11/01/19 7:34:00 EDT, Tablet, [facility] #[id number], 163, cm, 10/31/19 23:53:00 EDT, Height, 121.3, [...] 5 Refills, Maintenance, 07/11/20 15:32:00 EDT, Tablet, [facility] #[id number], 163, cm, 02/13/19 10:33:00 EST, Height, 113.18, [...]
--- OUTSIDE RECORDS SUMMARY | 2023-07-24 07:33 | XMS_ITS | Continuity of Care Document ---
Author Organization [facility] Address [address] [place] [address]- Care Team Providers Care Industrial Coffee Grinder Name Role Phone Glendy Ibrahim MD Primary Care Physician Encounter [facility] [place] Date(s): 03/31/21 - 05/06/[address] [address] Attending Physician: Glenda Forbes MD Admitting Physician: Glenda Forbes MD Referring Physician: Glendy Ibrahim MD Allergies, [...] tablet, 11 Refills, Maintenance, 07/16/20 10:21:00EDT, Tablet, [facility] #[id number], 162, cm, 07/16/20 9:30:00 EDT, Height, 121.3, [...]
--- OUTSIDE RECORDS SUMMARY | 2023-07-24 07:33 | XMS_ITS | Continuity of Care Document ---
Author Organization [facility] Address [address] [place] [address]- Care Team Providers Care Litigation Legal Secretary Name Role Phone Glendy Ibrahim MD Primary Care Physician [place] [facility] [place] 09/14/20 - 10/14/20 [facility] [address] [place] [address]- Allergies, Adverse Reactions, Alerts Substance Reaction Severity [...] tablet, 11 Refills, Maintenance, 07/16/20 10:21:00EDT, Tablet, [facility] #[id number], 162, cm, 07/16/20 9:30:00 EDT, Height, 121.3, [...]
--- OUTSIDE RECORDS SUMMARY | 2023-07-24 07:33 | XMS_ITS | Continuity of Care Document ---
Author Organization [facility] Address [address] [place] [address]- Care Team Providers Care Tool Pusher Name Role Phone Glenda Forbes MD Primary Care Physician En[place] [facility] [place] [place] Date(s): 04/26/22 - 05/26/22 [facility]/[address] [address]- Attending Physician: Franco Kamara Admitting Physician: Franco [...] Height Start Date: 04/26/22 Status: Ordered escitalopram 10 mg oral tablet 1 tablet = 10 mg, By Mouth, Daily, take 1/2 tablet po by mouth for 2 weeks, then increase to 1 tablet daily, # 90 tablet, 0 Refills, Maintenance, 04/26/22 18:47:00 EST, Tablet, [facility] #[id number], Partial fill upon patient request if the pre... Start Date: 04/26/22 Stop Date: 07/25/22 Status: Ordered Trulicity Pen 0.75 mg/0.5 mL subcutaneous solution 0.5 mL = 0.75 mg, Subcutaneous Injection, Every week, rotate injection sites, # 2 mL, 0 Refills, Maintenance, 04/26/22 18:46:00 EST, Solution, [facility] #[id number], Partial fill upon patient request if the prescription is for a schedule II opio... Start Date: 04/26/22 Stop Date: 05/24/22 Status: Ordered Problem List Condition Confirmation Course Effective Dates Status Health St atus Informant Test anxiety Confirmed Active Breast lump in female Confirmed Active Previous section Confirmed Active S/P gastric sleeve procedure Confirmed Active Obesity Confirmed Active Health care maintenance Confirmed Active Severe obesity Confirmed Active Type 2 diabetes mellitus Confirmed Active Social History Social History Type Response Smoking Status Never (less than 100 in lifetime); Tobacco user in household: No entered on: 04/26/22 Sex Patient Care team information Care Team Personnel Name: Padmini Yadav RN Position: [facility] OB RN Member Role: Primary Care Nurse Name: Glenda Forbes MD Position: [facility] Primary Care Physician Member Role: PCP Address: Address: [address] [place] [address]- Name: Mera Hernandez RN Position: [facility] YUNG Supv Member Role: Primary Care Nurse Name: Tiffany Palmer RN Position: [facility] OB RN Member Role: Primary Care Nurse Name: Ki Collins MD Position: [facility] GAS COMPRESSOR TURBINE OPERATOR MD Member Role: Lifetime GAS COMPRESSOR TURBINE OPERATOR Physician Address: Address: [address] [place] [address] [facility], [address] Care Team Related Persons Name: YG BHATT Address: [place] [address] Name: FELICITAS BRAXTON Address[facility] Address: [address] Name: JOHN BRAXTON Address: [facility] Address: [address]
--- OUTSIDE RECORDS SUMMARY | 2023-07-24 07:33 | XMS_ITS | Continuity of Care Document ---
Author Organization [facility] Address [address] [place] [address]- Care Team Providers Care Route Sales Manager Name Role Phone Patrice NELSON, Glendy Cortez Primary Care Physician En[facility] [place] Date(s): 07/25/19 - 08/31/19 [facility] [address] [place] [address]- [facility] Attending Physician: George Ortiz MD Admitting Physician: Diana NELSON, George Referring Physician: Marie Smith MD Allergies, Adverse [...] 5 Refills, Maintenance, 08/01/19 13:22:00 EDT, Tablet, [facility][id number], 163, cm, 02/13/19 10:33:00 EST, Height, 113.18, [...] 07/11/20 15:32:00 EDT, 07/17/19 15:32:00 EDT, Tablet, [facility] #[id number], 163, cm, 02/13/19 10:33:00 EST, Height, 113.18, kg, 02/04/19 16:43:00 EST, D... Start Date: 07/17/19 Stop Date: 07/11/20 Status: Ordered metFORMIN 500 mg oral tablet 1 tablet = 500 mg, By Mouth, 2 times a day, # 60 tablet, 5 Refills, Maintenance, 07/11/20 15:32:00 EDT, Tablet, [facility] #[id number], 163, cm, 02/13/19 10:33:00 EST, Height, 113.18, [...]
--- OUTSIDE RECORDS SUMMARY | 2023-07-24 07:33 | XMS_ITS | Continuity of Care Document ---
Author Organization [facility] Address [address] [place] [address]- Care Team Providers Care Artillery Or Naval Gunfire Observer Name Role Phone Patrice NELSON, Glendy Cortez Primary Care Physician [place] [facility] [place](s): 07/17/19 - 07/24/19 [facility]/[address] [address]- [facility] Attending Physician: Isa Nicolas MD Admitting [...] capsule, Refills 0, Tot. Refills 0, Maintenance, 11/04/19 10:33:59 EST, Print Requisition Start Date: 02/04/19 [...] tablet, 11 Refills, Maintenance, 07/17/19 15:32:00EDT, Tablet, [facility] #[id number], 163, cm, 02/13/19 10:33:00 EST, Height, 113.18, [...]
--- OUTSIDE RECORDS SUMMARY | 2023-07-24 07:33 | XMS_ITS | Continuity of Care Document ---
Author Organization [facility] Address [address] [place] [address]- Care Team Providers Care Steel Pourer Name Role Phone Patrice NELSON, Glendy Cortez Primary Care Physician Encounter [facility] Date(s): 08/24/20 - 09/23/[facility] [address] [place] [address] Attending Physician: Franco Kamara Admitting Physician: AdmtrFranco Referring Physician: Admtr ArCarter Allergies, Adverse Reactions, Alerts Substance Reaction Severity [...] tablet, 11 Refills, Maintenance, 07/16/20 10:21:00EDT, Tablet, [facility][id number], 162, cm, 07/16/20 9:30:00 EDT, Height, 121.3, [...]
--- OUTSIDE RECORDS SUMMARY | 2023-07-24 07:33 | XMS_ITS | Continuity of Care Document ---
Author Organization [facility] Address [address] [place] [address]- Care Team Providers Care Ticket Machine Operator Name Role Phone Glenda Forbes MD Primary Care Physician Encounter [facility] Date(s): 05/30/22 - 06/29/22 [facility]/[address] [address]- [place] Allergies, Adverse Reactions, Alerts Substance Reaction Severity [...] 0 Refills, Maintenance, 06/14/22 13:22:00 EDT, Tablet, [facility] #[id number], Partial fill upon patient request if the prescription is for a schedule II opioid drug., 162, cm, 06/14/22 11:33:00 EDT... Start Date: 06/14/22 Stop Date: 09/12/22 Status: Ordered hydrOXYzine hydrochloride 25 mg oral tablet 1 tablet = 25 mg, By Mouth, 4 times a day, PRN for anxiety, for 30 days, # 40 tablet, 0 Refills, Acute 07/14/22 13:22:00 EDT, 06/14/22 13:22:00 EDT, Tablet, [facility] #[id number], Partial fill upon patient request if the prescription is for a sc... Start Date: 06/14/22 Stop Date: 07/14/22 Status: Ordered Trulicity Pen 0.75 mg/0.5 mL subcutaneous solution 0.5 mL = 0.75 mg, Subcutaneous Injection, Every week, rotate injection sites, # 2 mL, 0 Refills, Maintenance, 04/26/22 18:46:00 EST, Solution, [facility] #[id number], Partial fill upon patient request if the [...] Team Personnel Name: Padmini Yadav RN Position: [facility] OB RN Member Role: Primary Care Nurse Name: Glenda Forbes MD Position: [facility] Primary Care Physician Member Role: PCP Address: Address: [address] [place] [address] Name: Mera Hernandez RN Position: [facility] RN Supv Member Role: Primary Care Nurse Name: Tiffany Palmer RN Position: [facility] OB RN Member Role: Primary Care Nurse Name: Ki Collins MD Position: [facility] STEEL INSPECTOR MD Member Role: Lifetime STEEL INSPECTOR Physician Address: Address: [address] [place] [address] [place] [address]- Care Team Related Persons Name: NOVA YG Address: [place] [address] Name: FELICITAS BRAXTON Address: [facility] Address: [address] Name: JOHN BRAXTON Address: [facility] Address: [address]
--- OUTSIDE RECORDS SUMMARY | 2023-07-24 07:33 | XMS_ITS | Continuity of Care Document ---
Author Organization [facility] Address [address] [place] [address]- Care Team Providers Care Rehabilitation Therapy Aide Name Role Phone Glendy Ibrahim MD Primary Care Physician ( [phone] Encounter [facility] Date(s): 10/25/19 - 11/24/19 [facility] [address] [place] [address]- [facility] Allergies, Adverse Reactions, Alerts Substance [...] 11/01/19 6:53:00 EDT, Route to Pharmacy Electronically, [facility] #[id number], 163, cm, 10/31/19 23:53:00 EDT, Height, 121.... Start Date: 11/01/19 Status: Ordered Dilaudid 2 mg oral tablet 1 tablet = 2 mg, By Mouth, Every 4 hours, PRN as needed for pain, # 16 tablet, 0 Refills, Acute 12/03/19 6:54:00 EDT, 11/01/19 6:53:00 EDT, Tablet, [facility] #[id number], Partial fill upon patient request, 163, cm, 10/31/19 23:53:00 EDT, Height,... Start Date: 11/01/19 Stop Date: 12/03/19 Status: Ordered ferrous fumarate 325 mg oral tablet 1 tablet = 325 mg, By Mouth, 2 times a day, # 60 tablet, 2 Refills, Maintenance, 11/01/19 7:34:00 EDT, Tablet, [facility] #[id number], 163, cm, 10/31/19 23:53:00 EDT, Height, 121.3, [...] 11/01/19 6:53:00 EDT, Route to Pharmacy Electronically, [facility] #[id number], 163, cm, 10/31/19 23:53:00 EDT, Height,... Start Date: 11/01/19 Stop Date: 12/03/19 Status: Ordered metFORMIN 500 mg oral tablet 1 tablet = 500 mg, By Mouth, 2 times a day, # 60 tablet, 5 Refills, Maintenance, 07/11/20 15:32:00 EDT, Tablet, [facility] #[id number], 163, cm, 02/13/19 10:33:00 EST, Height, 113.18, [...] 12/03/19 6:54:00 EDT, 11/01/19 6:54:00 EDT, Tablet, [facility] #[id number], 163, cm, 10/31/19 23:53:00 EDT, Height, 121.3, kg, 10/29/19 21:2... Start Date: 11/01/19 Stop Date: 12/03/19 Status: Ordered Tylenol 325 mg oral capsule 2 capsule = 650 mg, By Mouth, Every 4 hours, PRN as needed for pain, not to exceed 4000 mg/day, # 90 capsule, 0 Refills, Acute 12/03/19 6:54:00 EDT, 11/01/19 6:54:00 EDT, Capsule, [facility] #[id number], 163, cm, 10/31/19 23:53:00 EDT, Height, 12... Start Date: 11/01/19 Stop Date: 12/03/19 Status: Ordered Problem List Condition Effective Dates Status Health Status Inform ant Previous section(Confirmed) Active Type 2 diabetes mellitus(Confirmed) Active Social History Social History Type Response Smoking Status Never (less than 100 in lifetime); Tobacco user in household: No entered on: 02/16/18 Sex
--- OUTSIDE RECORDS SUMMARY | 2023-07-24 07:33 | XMS_ITS | Continuity of Care Document ---
Author Organization [facility] Address [address] [place] [address]- Care Team Providers Care Reaming Machine Operator For Plastic Name Role Phone Patrice NELSON, Glendy Cortez Primary Care Physician Encounter [facility] Date(s): 08/08/19 - 09/07/19 [facility] [address] [place] [address]- [facility] Attending Physician: Franco Kamara Admitting Physician: AdmtrFranco [...] 08/01/19 13:22:00 EDT, Tablet, [facility] #[id number], 163, cm, 02/13/19 10:33:00 EST, Height, 113.18, [...] 07/11/20 15:32:00 EDT, 07/17/19 15:32:00 EDT, Tablet, [facility] #[id number], 163, cm, 02/13/19 10:33:00 EST, Height, 113.18, kg, 02/04/19 16:43:00 EST, D... Start Date: 07/17/19 Stop Date: 07/11/20 Status: Ordered metFORMIN 500 mg oral tablet 1 tablet = 500 mg, By Mouth, 2 times a day, # 60 tablet, 5 Refills, Maintenance, 07/11/20 15:32:00 EDT, Tablet, [facility] #[id number], 163, cm, 02/13/19 10:33:00 EST, Height, 113.18, kg, 02/04/19 16:43:00 EST, Dry Weight Start Date: 07/11/20 Stop Date: 01/07/21 Status: Ordered MiraLax oral powder for reconstitution = 17 Gm, By Mouth, Daily, dissolve in water before taking, # 255 Gm, 0 Refills, Maintenance, 05/14/19 19:17:50 EDT, REC Powder Start Date: 08/14/18 [...]
--- OUTSIDE RECORDS SUMMARY | 2023-07-24 07:34 | XMS_ITS | Continuity of Care Document ---
Author Organization [facility] Address [address] [place] [address]- Care Team Providers Care Marketing Intelligence Manager Name Role Phone Glendy Ibrahim MD Primary Care Physician Encounter [facility] Date(s): 08/11/20 - 09/10/20 [facility] [address] [place] [address]- Attending Physician: Admtr, Franco Admitting Physician: Admtr, [...] tablet, 11 Refills, Maintenance, 07/16/20 10:21:00EDT, Tablet, [facility] #[id number], 162, cm, 07/16/20 9:30:00 EDT, Height, 121.3, [...]
--- OUTSIDE RECORDS SUMMARY | 2023-07-24 07:34 | XMS_ITS | Continuity of Care Document ---
Author Organization [facility] Address [address] [place] [address]- Care Team Providers Care Chief Contract Officer Name Role Phone Glenda Forbes MD Primary Care Physician Encounter [facility] Date(s): 05/30/22 - 06/29/22 [facility]/[address] [address]- [place] Allergies, Adverse Reactions, Alerts Substance Reaction [...] 0 Refills, Maintenance, 06/14/22 13:22:00 EDT, Tablet, [facility] #[id number], Partial fill upon patient request if the [...] 07/14/22 13:22:00 EDT, 06/14/22 13:22:00 EDT, Tablet, [facility] #[id number], Partial fill upon patient request if the prescription is for a sc... Start Date: 06/14/22 Stop Date: 07/14/22 Status: Ordered Trulicity Pen 0.75 mg/0.5 mL subcutaneous solution 0.5 mL = 0.75 mg, Subcutaneous Injection, Every week, rotate injection sites, # 2 mL, 0 Refills, Maintenance, 04/26/22 18:46:00 EST, Solution, [facility] #[id number], Partial fill upon patient request if the [...] Team Personnel Name: Padmini Yadav RN Position: [facility] OB RN Member Role: Primary Care Nurse Name: Glenda Forbes MD Position: [facility] Primary Care Physician Member Role: PCP Address: Address: [address] [place] [address] Name: Mera Hernandez RN Position: [facility] RN Supv Member Role: Primary Care Nurse Name: Tiffany Palmer RN Position: [facility] OB RN Member Role: Primary Care Nurse Name: Ki Collins MD Position: [facility] SAND SHOVELER MD Member Role: Lifetime SAND SHOVELER Physician Address: Address: [address] [place] [address] [place] [address]- Care Team Related Persons Name: NOVA YG Address: [place] [address] Name: FELICITAS BRAXTON Address: [facility] Address: [address] Name: JOHN BRAXTON Address: [facility] Address: [address]
--- OUTSIDE RECORDS SUMMARY | 2023-07-24 07:34 | XMS_ITS | Continuity of Care Document ---
Author Organization [facility] Address [address] [place] [address]- Care Team Providers Care Jail Guard Name Role Phone Glendy Ibrahim MD Primary Care Physician En[place] [facility] Date(s): 08/06/20 - 09/05/20 [facility] [address] [place] [address]- Allergies, Adverse Reactions, Alerts Substance Reaction Severity [...] tablet, 11 Refills, Maintenance, 07/16/20 10:21:00EDT, Tablet, [facility] #[id number], 162, cm, 07/16/20 9:30:00 EDT, Height, 121.3, [...]
--- OUTSIDE RECORDS SUMMARY | 2023-07-24 07:34 | XMS_ITS | Continuity of Care Document ---
Author Organization [facility] Address [address] [place] [address]- Care Team Providers Care Postdoctoral Research Associate Name Role Phone Patrice NELSON, Glendy Cortez Primary Care Physician ( [phone] Encounter [facility] Date(s): 11/25/19 - 12/25/19 [facility] [address] [place] [address]- [facility] Attending Physician: Roosevelt Johnson MD Admitting Physician: Roosevelt Johnson MD Allergies, Adverse Reactions, Alerts Substance Reaction [...] 11/01/19 6:53:00 EDT, Route to Pharmacy Electronically, [facility] #[id number], 163, cm, 10/31/19 23:53:00 EDT, Height, 121.... Start Date: 11/01/19 Status: Ordered ferrous fumarate 325 mg oral tablet 1 tablet = 325 mg, By Mouth, 2 times a day, # 60 tablet, 2 Refills, Maintenance, 11/01/19 7:34:00 EDT, Tablet, [facility] #[id number], 163, cm, 10/31/19 23:53:00 EDT, Height, 121.3, [...] 5 Refills, Maintenance, 07/11/20 15:32:00 EDT, Tablet, [facility] #[id number], 163, cm, 02/13/19 10:33:00 EST, Height, 113.18, [...]
--- OUTSIDE RECORDS SUMMARY | 2023-07-24 07:34 | XMS_ITS | Continuity of Care Document ---
Author Organization [facility] Address [address] [place] [address]- Care Team Providers Care Director Of Flight Operations Name Role Phone Glenda Forbes MD Primary Care Physician Encounter [facility] [place] Date(s): 11/30/21 - 12/30/21 [facility]/[address] [address]- Attending Physician: Franco Kamara Admitting Physician: AdmtrFranco Referring Physician: Admtr, ArCarter Allergies, Adverse Reactions, Alerts Substance Reaction [...] tablet, 11 Refills, Maintenance, 07/16/20 10:21:00EDT, Tablet, [facility] #[id number], 162, cm, 07/16/20 9:30:00 EDT, Height, 121.3, [...] Personnel Name: Glenda Forbes MD Address: Address: [address] [place] [address]
[2023-07-24] MEDS: 0.9 % Sodium Chloride Flush 10 ML SYRINGE 5 ML IVFLUSH (07:40)
[2023-07-24] MEDS: Iron Sucrose Complex 200 MG in 0.9 % Sodium Chloride 100 ML 440 MG IV (07:40)
[2023-07-31 07:45] VITALS: BMI 41.9
[2023-07-31 07:46] VITALS: BP 118/76; PULSE 100; RESP 18; TEMP 36.6; O2SAT 96
[2023-07-31] MEDS: Iron Sucrose Complex 200 MG in 0.9 % Sodium Chloride 100 ML 440 MG IV (07:56)
[2023-07-31] MEDS: 0.9 % Sodium Chloride Flush 10 ML SYRINGE 5 ML IVFLUSH (08:11)
[2023-08-07 07:38] VITALS: BP 137/77; PULSE 87; RESP 16; TEMP 35.8; O2SAT 97
[2023-08-07] MEDS: Iron Sucrose Complex 200 MG in 0.9 % Sodium Chloride 100 ML 440 MG IV (07:48)
[2023-08-07] MEDS: 0.9 % Sodium Chloride Flush 10 ML SYRINGE 5 ML IVFLUSH (07:49)
[2023-08-14 07:46] VITALS: BP 137/74; PULSE 82; RESP 20; TEMP 36.1; O2SAT 98
[2023-08-14] MEDS: 0.9 % Sodium Chloride Flush 10 ML SYRINGE 5 ML IVFLUSH (07:50)
[2023-08-14] MEDS: Iron Sucrose Complex 200 MG in 0.9 % Sodium Chloride 100 ML 440 MG IV (07:54)
[2023-08-21 07:48] VITALS: BP 114/74; PULSE 78; RESP 16; TEMP 36.6; O2SAT 98
[2023-08-21] MEDS: Iron Sucrose Complex 200 MG in 0.9 % Sodium Chloride 100 ML 440 MG IV (08:05)
[2023-08-21] MEDS: 0.9 % Sodium Chloride Flush 10 ML SYRINGE 5 ML IVFLUSH (08:22)
== END 2023-08-21 08:36 | disposition home or self-care (01) ==
LOC: HO.INF 07:30
PROVIDERS: Visit Provider Internal Medicine
DX: D50.9 Iron deficiency anemia, unspecified (principal)
CPT/HCPCS: 96374; J1756

== ENCOUNTER 2024-02-07 10:27 | Outpatient (AMB) | payer OTHER, SELFPAY ==
--- NOTE | 2024-02-07 10:51 | A.OFFPC_ITS ---
Vital Signs 02/07/24 11:02 Height 5 ft 4 in Weight 214 lb BMI 36.7 BP 112/76 Blood Pressure Location Rt brachial Position Sitting Pulse 94 Pulse Source Pulse Oximeter Pulse Oximetry (%) 99 Oxygen Delivery Method Room Air Intake Visit Reasons: Annual PE Intake Note: Pt is here today for her PE Allergies oxycodone Allergy (Severe, Verified 02/07/24 11:25) Itching Medication List - Last Reconciled 02/07/24 by Kaykay Maxwell MD ferrous sulfate 325 mg PO DAILY FreeStyle Jonn 2 Sensor (flash glucose sensor) As directed NS semaglutide (weight loss) (Wegovy) 2.4 mg subcut QWEEK Tobacco use date assessed: 02/07/24 Dental Screening Dental Screen Date: 02/07/24 Did you have a dental visit in the last 12 months?: Yes Did you have a dental problem in the last 6 months where you did not have access to dental care?: Yes Was dental information given to patient?: Patient has dentist HPI Annual PE HPI Details 33-year-old lady with past medical histo ry significant for microcytic hypochromic anemia followed by hematology,has not responded to oral iron supplementation and is not willing to increase dose of oral iron because of possible GI side effects. She received Venofer 200 mg IV weekly for 5 infusions. She has history of anxiety depression previously on escitalopram 20 mg daily but did not see any noticeable change, sees her therapist regularly. She has diabetes mellitus, currently on Wegovy at 2.4 mg given subcutaneously once a week. Up-to-date with her diabetes retinopathy screening, last seen at [facility] 11/16/2023 with no retinopathy seen. Today's hemoglobin A1c is at 6% . She goes to [facility] for her routine Pap and pelvic exam and is currently being followed for chronic pelvic pain [facility] Medical History (Updated 02/11/24 @ 19:27 by Kaykay Maxwell MD) Chronic female pelvic pain History of vitamin D deficiency Obesity (BMI 30.0-34.9) Lumbar degenerative disc disease Carpal tunnel syndrome of right wrist Anxiety and depression Type 2 diabetes mellitus without complication, with no history of insulin use Hepatosplenomegaly Delayed gastric emptying Vitamin B1 deficiency Surgical History S/P laparoscopic sleeve gastrectomy History of carpal tunnel surgery of right wrist Hx laparoscopic cholecystectomy History of bilateral tubal ligation Hx of emergency section Family History Mother Hypertension Anxiety Mental health disorder Brother ADD (attention deficit disorder) Son ADD (attention deficit disorder) Other Right wrist pain Social History Household Members: Family and Children Housing: Apartment Are you a primary care services manager to a significant other at home: No Do you presently have visiting nurse or other home services: No Alcohol intake: current Alcohol intake frequency: holidays/special occasions only Patient Tobacco Use Status: Never used Tobacco e-Cigarette/Vaping Use: Never Used service: No Current occupational status: employed Cognitive needs: No Hearing needs: No Vision needs: Yes Female Reproductive History Menstrual Other: Followed by [facility] Questionnaire PHQ-9 Over the last 2 weeks, how often have you been bothered by any of the following problems? 1. Little interest or pleasure in doing things: not at all 2. Feeling down, depressed, or hopeless: not at all 3. Trouble falling or staying asleep, or sleeping too much: several days 4. Feeling tired or having little energy: more than half the days 5. Poor appetite or overeating: not at all 6. Feeling bad about yourself - or that you are a failure or have let yourself or your family down: not at all 7. Trouble concentrating on things, such as reading the newspaper or watching television: more than half the days 8. Moving or speaking so slowly that other people could have noticed. Or the opposite - being so fidgety or restless that you have been moving around a lot more than usual: not at all 9. Thoughts that you would be better off or of hurting yourself in some way: not at all Total score: 5 Depression Screening Interpretation: Negative Depression Screening Done: Yes 74594 - PHQ-9 Billing: Yes Source: Developed by Drs. Gorge Tavarez, Olga Pedroza, Jona Grove and colleagues, with an educational melvina from [employer]. Thrive Questionnaire Date Thrive assessed: 02/07/24 I am a: Patient What is your living situation today?: I have a steady place to live Within the past 12 months, did the food you bought not last and you didn't have the money to get more?: Never true Within the past 12 months, did you worry whether your food would run out before you got money to buy more?: Never true Do you have trouble paying for medicines?: No Do you have trouble getting transportation to medical appointments?: No Do you have trouble paying your heating and electricity bill?: No Do you have trouble taking care of your child, family member or friend?: No Do you have trouble with day-to-day activities such as bathing, preparing meals, shopping, managing finances, etc.?: No Are you currently unemployed and looking for a job?: No Are you interested in more education?: No Please select the resources that you would like help with: None Currently or been in a relationship where the following occur: No concerns reported THRIVE Score: 0 AUDIT C Alcohol Use Questionnaire (AUDIT-C) 1. How often do you have a drink containing alcohol?: Never Total Score: 0 TIEN-7 AMB Questionnaire TIEN-7 Date TIEN - 7 assessed: 02/07/24 Feeling nervous, anxious, or on edge: 1 = Several days Not being able to stop or control worryin = Several days Worrying too much about different things: 1 = Several days Trouble relaxin = Several days Being so restless that it is hard to sit still: 0 = Not at all Becoming easily annoyed or irritable: 1 = Several days Feeling afraid as if something awful might happen: 0 = Not at all Total TIEN-7 score (0-4 normal; 5-9 mild; 10-14 moderate; 15-21 severe): 5 Source: Developed by Drs. Gorge Tavarez, Ogla Pedroza, Jona Grove and colleagues, with an educational melvina from [employer]. TIEN-7 Assessment Billing TIEN-7 Assessment Tool: TIEN-7 Assessment 83771 Review of Systems Const Denies fever(s) and Denies snoring Eyes Reports requires corrective lenses ENT Reports no additional complaints Card Denies chest pain, Denies irregular heart rhythm, Denies leg edema, Denies dyspnea and Denies dyspnea on exertion Resp Denies cough, Denies hemoptysis, Denies dyspnea, Denies dyspnea on exertion and Denies snoring GI Denies heartburn, Denies nausea and Denies vomiting Details: Followed by [facility] for her routine Pap/pelvic exam and for chronic pelvic pain Musc Reports back pain (Mid back) Skin/Breast Denies breast pain, Denies breast mass and Denies rash Neuro Reports no additional complaints Psych Reports no additional complaints Endo Reports no additional complaints Merrill/Lymph Reports no additional complaints Aller/Immun Reports no additional complaints Physical exam (Primary Care) Vital Signs: Last Vital Signs Pulse 94 02/07/24 11:02 BP 112/76 02/07/24 11:02 Pulse Ox 99 02/07/24 11:02 Oxygen Delivery Method Room Air 02/07/24 11:02 BMI result Body Mass Index 36.7 Tobacco/Smoking Status: Tobacco use Status Tobacco use date assessed 02/07/24 02/07/24 10:52 Patient Tobacco Use Status Never used Tobacco 02/07/24 10:52 e-Cigarette/Vaping Use Never Used 02/07/24 10:52 PHQ-9: PHQ-9 Score PHQ-9: Total score 5 02/11/24 19:06 Depression Screening Interpretation: Negative Thrive Assessment: Date of Thrive Assessment Date Thrive assessed 02/07/24 02/07/24 11:01 Currently or been in a relationship where the following occur: No concerns reported Advance Care Planning discussion: Completed/Scanned Date of discussion: 02/07/24 Who was present: Patient Forms completed: Health Care Proxy Time spent: 16-45 minutes Actual minutes spent: 2 Const General: no acute distress and alert Nutritional Appearance: obese morbidly obese Orientation/consciousness: patient oriented x3 HENMT Head: Yes normocephalic Ears: hearing grossly normal bilaterally and external ears normal General nose exam: Normal external nose present Face and sinus: Yes face symmetric Mouth: Normal oral and palatal mucosa present, oropharynx normal and moist mucous membranes Eyes General: appearance normal, both eyes and all related structures Neck Neck: Yes full ROM and Yes supple Chest Breast/axilla palpation: normal palpation of the breasts Resp Effort & Inspection: normal respiratory effort and able to speak in complete sentences Auscultation: clear to auscultation bilaterally Cardio Rate: regular rate Rhythm: regular rhythm Heart sounds: S1 normal heart sound present and S2 normal heart sound present GI Palpation (GI): Soft to palpation and Tenderness to palpation present (GI) (Lower abdomen, no rebound or guarding, no ) Auscultation: normal bowel sounds Other: Goes to [facility] for her routine Pap and pelvic exam, currently up-to-date General: Yes deferred Back/Spine/Pelvis Thoracic/Lumbar Spine: straight leg raise negative bilaterally and paraspinal muscle tenderness bilaterally in the upper thoracic and in the mid thoracic Skin General skin exam: no rashes or lesions noted Neuro General: patient oriented x3, gait normal, tone normal, moves all extremities, Normal light touch and pain sensation and no focal motor deficits Cranial nerves: Yes CN's II-XII intact bilaterally Cognition (Neuro): normal cognition Extrem General: Yes full ROM, Yes no joint enlargement, Yes no clubbing, cyanosis or edema and Yes no calf tenderness Psych Appearance: grossly normal and well kempt Mental Status: mental status grossly normal Speech and movement: Normal speech and movement present Thought process: Normal thought process present Thought content: Normal thought content present Office Procedures Flu Questionnaire Does the patient have a severe egg allergy?: No Does the patient have severe life threatening allergies?: No Does the patient have a fever or illness today?: No Has the patient ever had Guillain-Mayfield Syndrome?: No Has the patient ever had any past reaction to a flu shot?: No Results AMB Hemoglobin A1c AMB Hemoglobin A1c 6.0 % Last Edit by Sarah Palma CMA on 02/07/24 11:22 Immunizations Fluarix Triv [id number] (PF) 45 mcg (15 mcg x 3)/0.5 mL IM syringe Performing Provider: Kaykay Maxwell MD Performing Location: [facility] Administered by: Sarah Palma CMA on 02/07/24 11:20 Dose Route Admin Location Dispensed Lot Number Expiration Date [facility] Menagerie Superintendent 0.5 mL IM Left Deltoid 0.5 mL [id number] 09/30/24 [id number] [employer] VIS Given Date VIS Provided VIS Publication Date 02/07/24 Single Vaccine 20 Eligibility Eligibility Date Funding Source Not [facility] Eligible 02/07/24 Private Results Reviewed Results Reviewed: Laboratory Last Values Hgb A1c (Clinic) 6.0 % (4.0-6.0) 02/07/24 11:11 Coding Level of Care Code Est Pt Prev Care 18-39y(87461) Diagnoses Annual visit for general adult medical examination with abnormal findings Z00.01 Type 2 diabetes mellitus without complication, with no history of insulin use E11.9 Iron deficiency anemia, unspecified iron deficiency anemia type D50.9 Iron deficiency anemia type: unspecified iron deficiency Obesity (BMI 30.0-34.9) E66.811 Advanced directives, counseling/discussion Z71.89 Additional Codes TIEN-7 Assessment Billing - TIEN-7 Assessment Tool: TIEN-7 Assessment 39875 ([id number]) PHQ-9 - 55721 - PHQ-9 Billing: Yes ([id number]) Vital Signs *Quality* - Advance Care Planning discussion: Completed/Scanned ([id number]) Vital Signs *Quality* - Time spent: 16-45 minutes ([id number]) Assessment & Plan Assessment & Plan (1) Annual visit for general adult medical examination with abnormal findings: Code(s): Z00.01 - Encounter for general adult medical examination with abnormal findings Plan: Will check appropriate labs. Recommended dental visit every 6 months and continue with yearly eye exam, currently up-to-date. . Instructed to do self- breast exam, and start with yearly mammogram at age 42. Goes to [facility] for routine Pap and pelvic exam. Flu vaccine given today (2) Type 2 diabetes mellitus without complication, with no history of insulin use: Code(s): E11.9 - Type 2 diabetes mellitus without complications Category: Medical Plan: Diabetes mellitus controlled with hemoglobin A1c at 6%, currently on Wegovy at 2.4 mg once a week. Up-to-date with her diabetes retinopathy screening. Flu vaccine given today (3) Iron deficiency anemia: Code(s): D50.9 - Iron deficiency anemia, unspecified Category: Medical Qualifiers: Iron deficiency anemia type: unspecified iron deficiency Qualified Code(s): D50.9 - Iron deficiency anemia, unspecified Plan: Given Venofer by Hematology, repeat CBC , ferritin, and iron profile (4) Obesity (BMI 30.0-34.9): Code(s): E66.811 - Obesity, class 1 Category: Medical Plan: Currently on we go b 2.4 mg once a a week minimal weight loss noted. Continue with adhering to healthy eating habits unable to exercise much due to her back pain and pelvic pain (5) Advanced directives, counseling/discussion: Code(s): Z71.89 - Other specified counseling Plan: Initiated the conversation about Advanced Directives. Advanced Directives help patients prepare for current and future decisions about their medical treatment and place of care. Discussed with patient that it is a process where a patients current condition and prognosis are reviewed, their wishes for information regarding their illness are elicited, and likely medical dilemmas are presented and options discussed. Healthcare proxy form completed today. The form can be amended as needed, reviewed yearly and make changes as needed Orders: Orders AMB Hemoglobin A1c 02/07/24 E11.9 - Type 2 diabetes mellitus without complications Influenza [id number] Immunization 02/07/24 Z23 - Encounter for immunization Complete Blood Count Auto Diff 02/07/24 D50.9 - Iron deficiency anemia, unspecified, E11.9 - Type 2 diabetes mellitus without complications IRON PROFILE 02/07/24 D50.9 - Iron deficiency anemia, unspecified, E11.9 - Type 2 diabetes mellitus without complications Vitamin D 25-OH Total 02/07/24 D50.9 - Iron deficiency anemia, unspecified, E11.9 - Type 2 diabetes mellitus without complications Ferritin 02/07/24 D50.9 - Iron deficiency anemia, unspecified, E11.9 - Type 2 diabetes mellitus without complications Aspartate Amino Transferase 02/07/24 D50.9 - Iron deficiency anemia, unspecified, E11.9 - Type 2 diabetes mellitus without complications Alanine Aminotransferase 02/07/24 D50.9 - Iron deficiency anemia, unspecified, E11.9 - Type 2 diabetes mellitus without complications
[2024-02-07 11:02] VITALS: BP 112/76; PULSE 94; O2SAT 99; BMI 36.7
== END 2024-02-07 11:44 | disposition home or self-care (01) ==
LOC: HO.HMCC 10:28
PROVIDERS: PCP Internal Medicine; Visit Provider Internal Medicine
DX: Z00.00 Encounter for general adult medical examination without abnormal findings (principal); E11.9 Type 2 diabetes mellitus without complications; E66.811 Obesity, class 1; Z68.36 Body mass index [BMI] 36.0-36.9, adult; D50.9 Iron deficiency anemia, unspecified

== ENCOUNTER → 2024-02-07 10:27 | Outpatient (BNVA) | payer OTHER, SELFPAY | PROVIDERS: PCP Internal Medicine; Visit Provider Internal Medicine | DX: Z00.01 Encounter for general adult medical examination with abnormal findings (principal); Z23 Encounter for immunization; E11.9 Type 2 diabetes mellitus without complications; D50.9 Iron deficiency anemia, unspecified; E66.811 Obesity, class 1; Z71.89 Other specified counseling | CPT/HCPCS: 83036; 90471; 90656; 96127; 99395 ==

== ENCOUNTER 2024-03-11 16:21 | Outpatient (REF) | payer OTHER, SELFPAY ==
[2024-03-11 16:55] LABS: Basophils Percent Auto 0.6 % (0-2); Eosinophils Absolute Auto 0.1 X10*3/uL (0.0-0.4); Eosinophils Percent Auto 1.7 % (0-4); Hematocrit 34.5 % (37.0-47.0); Hemoglobin 10.8 g/dl (12.0-16.0); Imm Gran Abs Auto 0.01 X10*3/uL (0.00-0.03); Imm Gran Pct Auto 0.2 % (0.0-0.4); Lymphocytes Absolute Auto 1.7 X10*3/uL (1.2-4.9); Lymphocytes Percent Auto 32.2 % (20-40); MANUAL DIFF FLAG NO; Mean Corpuscular HGB Conc 31.3 g/dl (31.0-35.0); Mean Corpuscular Hemoglobin 25.2 pg (27.0-33.0); Mean Corpuscular Volume 80.6 fL (80.0-98.0); Mean Platelet Volume 11.1 fL (9.4-12.3); Monocytes Absolute Auto 0.3 X10*3/uL (0.1-1.2); Monocytes Percent Auto 5.7 % (2-11); Neutrophils Absolute Auto 3.2 x10*3/uL (2.0-8.3); Neutrophils Percent Auto 59.6 % (45-73); Platelet Count 204 X10*3/uL (160-400); Red Blood Count 4.28 X10*6/uL (4.20-5.50); Red Cell Distribution Width 13.5 % (11.0-16.0); White Blood Count 5.4 X10*3/uL (4.8-10.8)
[2024-03-11 19:10] LABS: Alanine Aminotransferase 10 U/L (0-31); Aspartate Amino Transferase 16 U/L (5-31); Iron 19 mcg/dL (30-160); Percent Iron Saturation 6 % (15-50); Total Iron Binding Capacity 311 mcg/dL (228-428); Unsaturated Iron Binding 292 ug/dL
[2024-03-11 19:25] LABS: Ferritin 14 ng/mL (10-122); Vitamin D 25-OH Total 27.1 ng/mL (>30)
== END 2024-03-11 16:22 | disposition home or self-care (01) ==
LOC: HO.LAB 16:21
PROVIDERS: PCP Internal Medicine; Visit Provider Internal Medicine
DX: D50.9 Iron deficiency anemia, unspecified (principal); E11.9 Type 2 diabetes mellitus without complications; R35.0 Frequency of micturition
CPT/HCPCS: 36415; 82306; 82728; 83540; 84450; 84460; 85025

== ENCOUNTER 2024-09-18 12:45 | Outpatient (AMB) | payer OTHER, MEDICAID, SELFPAY ==
--- NOTE | 2024-09-18 13:29 | A.OFFVIS_ITS ---
Vital Signs 09/18/24 13:36 Height 5 ft 4 in Weight 185 lb BMI 31.8 BP 119/63 Blood Pressure Location Rt brachial Position Sitting Pulse 87 Intake Visit Reasons: rectal bleeding Intake Note: Patient referred by pcp Dr. Maxwell for rectal bleeding. Reports hx of blood transfusions due to anemia. Patient c/o: noticed blood after BM every day. Hx of partial gastrostomy w/ Dr. Patel~ 01-12-2021 Manager Mental Health Required: No Accompanied by: Son Allergies oxycodone Allergy (Severe, Verified 09/18/24 13:33) Itching Medication List - Last Reconciled 09/18/24 by Doug River MD ferrous sulfate 325 mg PO DAILY FreeStyle Jonn 2 Sensor (flash glucose sensor) As directed NS hydrocortisone 2.5% (Anusol-HC) 1 appl KS BID-QID PRN nitroglycerin 0.4%(w/w) (Rectiv) 1 inch KS BID psyllium seed (sugar) (Metamucil (sugar) oral powder) 1 tbsp PO BID tirzepatide (weight loss) (Zepbound) mg subcut HPI HPI rectal bleeding: Details: 34-year-old female referred because of passage of bright blood per rectum She actually says she has had this problem for almost 5 years now. She would notice bright blood on the toilet as well as on wiping. This would be separate from her stools itself. However, she says that this problem seems to be worsening and the bleeding is often times noted to be heavier She also describes having significant pain in the anus with passage of stools. She admits to occasionally being constipated. [facility] Medical History (Updated 09/18/24 @ 14:00 by Doug River MD) Anal fissure Chronic female pelvic pain History of vitamin D deficiency Obesity (BMI 30.0-34.9) Lumbar degenerative disc disease Carpal tunnel syndrome of right wrist Anxiety and depression Type 2 diabetes mellitus without complication, with no history of insulin use Hepatosplenomegaly Delayed gastric emptying Vitamin B1 deficiency Surgical History S/P laparoscopic sleeve gastrectomy History of carpal tunnel surgery of right wrist Hx laparoscopic cholecystectomy History of bilateral tubal ligation Hx of emergency section Family History Mother Hypertension Anxiety Mental health disorder Brother ADD (attention deficit disorder) Son ADD (attention deficit disorder) Other Right wrist pain Social History Household Members: Family and Children Housing: Apartment Are you a primary child care to a significant other at home: No Do you presently have visiting nurse or other home services: No Alcohol intake: current Alcohol intake frequency: holidays/special occasions only Patient Tobacco Use Status: Never used Tobacco e-Cigarette/Vaping Use: Never Used service: No Current occupational status: employed Cognitive needs: No Hearing needs: No Vision needs: Yes Review of Systems Const Denies chills and Denies fever(s) Card Denies chest pain, Denies dyspnea and Denies dyspnea on exertion Resp Denies cough, Denies dyspnea and Denies dyspnea on exertion GI Reports hematochezia, Denies change in bowel habits and Reports constipation Denies hematuria Musc Denies back pain and Denies limited range of motion Neuro Denies focal weakness and Denies convulsions Psych Denies depression and Denies mood swings Physical Exam Vital Signs: Last Vital Signs Pulse 87 09/18/24 13:36 BP 119/63 09/18/24 13:36 BMI result Body Mass Index 31.8 Const General: comfortable and no acute distress Orientation/consciousness: patient oriented x3 Neck Neck: Yes no lymphadenopathy Resp Auscultation: clear to auscultation bilaterally Cardio Rhythm: regular rhythm GI Other: Rectal exam shows small external hemorrhoids; retraction of her anal orifice shows an anterior midline fissure which is very tender to touch. She was unable to tolerate digital exam and anoscopy well Palpation (GI): Soft to palpation, nontender and no guarding Neuro General: patient oriented x3 Assessment & Plan Assessment & Plan (1) Anal fissure: Code(s): K60.2 - Anal fissure, unspecified Category: Medical Plan: She describes passage of bright blood per rectum for many years. This has been worsening recently. She says that sometimes the bleeding can be heavy Examination shows an anal fissure in the anterior midline of the distal dentate line. She was extremely tender and this area and was unable to tolerate full anoscopy and digital exam I therefore explained to her that her pain may likely be secondary to this chronic anal fissure. I explained the option of chemicals sphincter with nitroglycerin or calcium channel blockers. I also explained the option of proceeding with lateral internal sphincterotomy. I explained to her that this is done under anesthesia in the operating room. The outcome maybe much quicker and we will be more successful She is willing to trial treatment with rectus for now without sphincterotomy. I will see her again in the office next month to see how she is doing and if her symptoms persist, we can proceed with lateral internal sphincterotomy.. She is also to undergo hysterectomy next week in [facility] for uterine polyps. Medications: New nitroglycerin 0.4%(w/w) (Rectiv) 1 inch KS BID 30 grams 0RF psyllium seed (sugar) (Metamucil (sugar) oral powder) 1 tbsp PO BID 1,254 grams 0RF Coding Level of Care Code New Pt Level 3 (60362) Diagnoses Anal fissure K60.2
[2024-09-18 13:36] VITALS: BP 119/63; PULSE 87; BMI 31.8
--- OUTSIDE RECORDS SUMMARY | 2024-09-18 14:34 | XMS_ITS | Patient Health Record ---
Author Organization [facility] Address [address] [place] [address] Care Team Providers Care Site Auditor Name Role Phone Parul Matute MD Primary Care Provider Shmuel Aleman Unavailable [phone] Reason For Referral No Information Medications Medication SIG (Take, Route, Frequency, Duration) Notes Start Date End Date Status metFORMIN HCl Unknow n Ondansetron HCl 4 MG 2 tablets Orally On ce a day 10/09/2014 Unknown Sulfamethoxazole-TMP DS 800-160 MG 1 tablet Orally Once a day 10/09/2014 Unknown Social History Tobacco use other than smoking: Question Answer Notes Are you an other tobacco user? No Problems No Known Problems Plan Of Treatment No Information Insurance Providers Payer Name Payer Address Payer Phone Subscriber Number Group Number Insured Name Patient Relationship to Insured Coverage Start Date Coverage End Date [facility] [address] [place] [address] [id number] Aimee Peralta Natural Child - Insured does not have Financial Responsibility (includes legally adopted child) Medical (General) History Medical History History ICD Code Anemia asthma Diabetes mellitus Surgical History Surgery Date(Month/Year) section x 2
== END 2024-09-18 13:59 | disposition home or self-care (01) ==
PROVIDERS: PCP Internal Medicine; Visit Provider Surgery
DX: K60.2 Anal fissure, unspecified (principal)
CPT/HCPCS: 99203

== ENCOUNTER → 2024-09-18 12:45 | Outpatient (BNVA) | payer OTHER, MEDICAID, SELFPAY | PROVIDERS: PCP Internal Medicine; Visit Provider Surgery ==

== ENCOUNTER 2025-04-02 08:35 | Outpatient (REF) | payer OTHER, MEDICAID, SELFPAY ==
[2025-04-02 14:20] LABS: MANUAL DIFF FLAG NO
[2025-04-02 14:25] LABS: Hematocrit 38.2 % (37.0-47.0); Hemoglobin 11.9 g/dl (12.0-16.0); Imm Gran Abs Auto 0.01 X10*3/uL (0.00-0.03); Imm Gran Pct Auto 0.2 % (0.0-0.4); Lymphocytes Absolute Auto 1.9 X10*3/uL (1.2-4.9); Mean Corpuscular HGB Conc 31.2 g/dl (31.0-35.0); Mean Corpuscular Hemoglobin 24.3 pg (27.0-33.0); Mean Corpuscular Volume 78.0 fL (80.0-98.0); NRBC Abs Auto 0.000 X10*3/uL (0.0-0.012); NRBC Pct Auto 0.0 /100WBC (0.0-0.2); Platelet Count 202 X10*3/uL (160-400); Red Blood Count 4.90 X10*6/uL (4.20-5.50); White Blood Count 5.6 X10*3/uL (4.8-10.8)
[2025-04-02 14:51] LABS: Microalbum/Creatinine Ratio Ur 4.7 ug/mg cr (<30)
[2025-04-02 14:51] LABS: Alanine Aminotransferase 14 U/L (0-31); Anion Gap 11 (12-20); Aspartate Amino Transferase 21 U/L (5-31); Blood Urea Nitrogen 14 mg/dL (9-16); Calcium 9.4 mg/dL (8.4-10.2); Carbon Dioxide 23 mmol/L (22-29); Chloride 110 mmol/L (96-108); Cholesterol 193 mg/dL (<200); Estimated Glomerular Filt Rate > 60; HDL Cholesterol 36 mg/dL (>40); Iron 61 mcg/dL (30-160); Percent Iron Saturation 20 % (15-50); Potassium 3.8 mmol/L (3.3-5.1); Sodium 140 mmol/L (135-145); Total Iron Binding Capacity 312 mcg/dL (228-428); Triglycerides 118 mg/dL (<150); Unsaturated Iron Binding 251 ug/dL
[2025-04-02 15:08] LABS: Ferritin 12 ng/mL (10-122)
== END 2025-04-02 08:36 | disposition home or self-care (01) ==
LOC: HO.HMGCLDS 08:35
PROVIDERS: PCP Internal Medicine; Visit Provider Internal Medicine
DX: Z00.01 Encounter for general adult medical examination with abnormal findings (principal); E11.9 Type 2 diabetes mellitus without complications; D50.9 Iron deficiency anemia, unspecified; K60.2 Anal fissure, unspecified; M54.9 Dorsalgia, unspecified; Z23 Encounter for immunization
CPT/HCPCS: 36415; 80048; 80061; 82043; 82306; 82570; 82728; 83036; 83540; 84450; 84460; 85025; 96127

== ENCOUNTER 2025-04-02 08:35 | Outpatient (AMB) | payer OTHER, MEDICAID, SELFPAY ==
--- NOTE | 2025-04-02 08:38 | A.OFFPC_ITS ---
Vital Signs 04/02/25 08:39 Height 5 ft 4 in Weight 160 lb BMI 27.5 BP 118/62 Blood Pressure Location Lt brachial Position Sitting Pulse 75 Pulse Source Pulse Oximeter Pulse Oximetry (%) 98 Intake Visit Reasons: Annual PE- A1C needed Allergies oxycodone Allergy (Severe, Verified 04/02/25 08:55) Itching Medication List - Last Reconciled 04/02/25 by Kaykay Maxwell MD FreeStyle Jonn 2 Sensor (flash glucose sensor) As directed NS nitroglycerin 0.4%(w/w) (Rectiv) 1 inch DE BID tirzepatide (Mounjaro) mg subcut Tobacco use date assessed: 04/02/25 Dental Screening Dental Screen Date: 04/02/25 Did you have a dental visit in the last 12 months?: Yes Did you have a dental problem in the last 6 months where you did not have access to dental care?: No Was dental information given to patient?: Patient has dentist HPI Annual PE- A1C needed HPI Details 35 -year-old lady with past medical hist ory significant for microcytic hypochromic anemia followed by hematology, history of anxiety depression previously on escitalopram 20 mg daily but did not see any noticeable change, sees her therapist regularly, has diabetes mellitus, currently on Wegovy at 2.4 mg given subcutaneously once a week. Up-to-date with her diabetes retinopathy screening, last seen at [facility] 11/16/2023 with no retinopathy seen. Today's hemoglobin A1c is at 6% . She goes to [facility] for her routine Pap and pelvic exam and is currently being followed for chronic pelvic pain [facility] Medical History (Updated 04/02/25 @ 09:14 by Kaykay Maxwell MD) Anal fissure Chronic female pelvic pain History of vitamin D deficiency Obesity (BMI 30.0-34.9) Lumbar degenerative disc disease Carpal tunnel syndrome of right wrist Anxiety and depression Type 2 diabetes mellitus without complication, with no history of insulin use Hepatosplenomegaly Delayed gastric emptying Vitamin B1 deficiency Surgical History (Updated 04/02/25 @ 08:50 by Mohit Terry [facility]) S/P lumpectomy, right breast History of carpal tunnel surgery of left wrist History of partial hysterectomy S/P laparoscopic sleeve gastrectomy History of carpal tunnel surgery of right wrist Hx laparoscopic cholecystectomy History of bilateral tubal ligation Hx of emergency section Family History (Updated 04/02/25 @ 09:22 by Kaykay Maxwell MD) Mother Hypertension Anxiety Mental health disorder Brother ADD (attention deficit disorder) Son ADD (attention deficit disorder) ANDRESSA (maturity onset diabetes mellitus in young) Other Right wrist pain Social History Household Members: Family and Children Housing: Apartment Are you a primary career consultant to a significant other at home: No Do you presently have visiting nurse or other home services: No Alcohol intake: current Alcohol intake frequency: holidays/special occasions only Patient Tobacco Use Status: Never used Tobacco e-Cigarette/Vaping Use: Never Used service: No Current occupational status: employed Cognitive needs: No Hearing needs: No Vision needs: Yes Questionnaire PHQ-9 Over the last 2 weeks, how often have you been bothered by any of the following problems? 1. Little interest or pleasure in doing things: not at all 2. Feeling down, depressed, or hopeless: not at all 3. Trouble falling or staying asleep, or sleeping too much: not at all 4. Feeling tired or having little energy: not at all 5. Poor appetite or overeating: not at all 6. Feeling bad about yourself - or that you are a failure or have let yourself or your family down: not at all 7. Trouble concentrating on things, such as reading the newspaper or watching television: not at all 8. Moving or speaking so slowly that other people could have noticed. Or the opposite - being so fidgety or restless that you have been moving around a lot more than usual: not at all 9. Thoughts that you would be better off or of hurting yourself in some way: not at all Total score: 0 Depression Screening Interpretation: Negative Depression Screening Done: Yes 12571 - PHQ-9 Billing: Yes Source: Developed by Drs. Gorge Tavarez, Olga Pedroza, Jona Grove and colleagues, with an educational melvina from [employer]. Thrive Questionnaire Date Thrive assessed: 04/02/25 I am a: Patient What is your living situation today?: I have a steady place to live Within the past 12 months, did the food you bought not last and you didn't have the money to get more?: Never true Within the past 12 months, did you worry whether your food would run out before you got money to buy more?: Never true Do you have trouble paying for medicines?: No Do you have trouble getting transportation to medical appointments?: No Do you have trouble paying your heating and electricity bill?: No Do you have trouble taking care of your child, family member or friend?: No Do you have trouble with day-to-day activities such as bathing, preparing meals, shopping, managing finances, etc.?: No Are you currently unemployed and looking for a job?: No Are you interested in more education?: No Please select the resources that you would like help with: None Currently or been in a relationship where the following occur: No concerns reported THRIVE Score: 0 AUDIT C Alcohol Use Questionnaire (AUDIT-C) 1. How often do you have a drink containing alcohol?: Monthly or less 2. How many drinks containing alcohol do you have on a typical day when you are drinking?: 1 or 2 3. How often do you have six or more drinks on one occasion?: Never Total Score: 1 Score Reviewed/Action Taken: Yes TIEN-7 AMB Questionnaire TIEN-7 Date TIEN - 7 assessed: 04/02/25 Feeling nervous, anxious, or on edge: 0 = Not at all Not being able to stop or control worryin = Not at all Worrying too much about different things: 0 = Not at all Trouble relaxin = Not at all Being so restless that it is hard to sit still: 1 = Several days Becoming easily annoyed or irritable: 0 = Not at all Feeling afraid as if something awful might happen: 0 = Not at all Total TIEN-7 score (0-4 normal; 5-9 mild; 10-14 moderate; 15-21 severe): 1 Source: Developed by Drs. Gorge Tavarez, Olga Pedroza, Jona Grove and colleagues, with an educational melvina from [employer] TIEN-7 Assessment Billing TIEN-7 Assessment Tool: TIEN-7 Assessment 72790 Physical exam (Primary Care) Vital Signs: Last Vital Signs Pulse 75 04/02/25 08:39 BP 118/62 04/02/25 08:39 Pulse Ox 98 04/02/25 08:39 BMI result Body Mass Index 27.5 Tobacco/Smoking Status: Tobacco use Status Tobacco use date assessed 04/02/25 04/02/25 08:52 Patient Tobacco Use Status Never used Tobacco 04/02/25 08:52 e-Cigarette/Vaping Use Never Used 04/02/25 08:52 PHQ-9: PHQ-9 Score PHQ-9: Total score 0 04/02/25 08:52 Depression Screening Interpretation: Negative Thrive Assessment: Date of Thrive Assessment Date Thrive assessed 04/02/25 04/02/25 08:52 Currently or been in a relationship where the following occur: No concerns reported Results AMB Hemoglobin A1c 2 AMB Hemoglobin A1c 6.3 % Last Edit by Mohit Terry CMA on 04/02/25 09: 07 Coding Diagnoses Type 2 diabetes mellitus without complication, with no history of insulin use E11.9 Iron deficiency anemia, unspecified iron deficiency anemia type D50.9 Iron deficiency anemia type: unspecified iron deficiency Additional Codes TIEN-7 Assessment Billing - TIEN-7 Assessment Tool: TIEN-7 Assessment 60439 ([id number]) PHQ-9 - 88238 - PHQ-9 Billing: Yes ([id number]) Assessment & Plan Assessment & Plan (1) Type 2 diabetes mellitus without complication, with no history of insulin use: Code(s): E11.9 - Type 2 diabetes mellitus without complications Category: Medical (2) Iron deficiency anemia: Code(s): D50.9 - Iron deficiency anemia, unspecified Category: Medical Qualifiers: Iron deficiency anemia type: unspecified iron deficiency Qualified Code(s): D50.9 - Iron deficiency anemia, unspecified Orders: Orders AMB Hemoglobin A1c Today Z13.9 - Encounter for screening, unspecified Alanine Aminotransferase Today D50.9 - Iron deficiency anemia, unspecified, E11.9 - Type 2 diabetes mellitus without complications Aspartate Amino Transferase Today D50.9 - Iron deficiency anemia, unspecified, E11.9 - Type 2 diabetes mellitus without complications Vitamin D 25-OH Total Today D50.9 - Iron deficiency anemia, unspecified, E11.9 - Type 2 diabetes mellitus without complications Microalbumin, Random (w Creat) Today D50.9 - Iron deficiency anemia, unspecified, E11.9 - Type 2 diabetes mellitus without complications IRON PROFILE Today D50.9 - Iron deficiency anemia, unspecified, E11.9 - Type 2 diabetes mellitus without complications Complete Blood Count Auto Diff Today D50.9 - Iron deficiency anemia, unspecified, E11.9 - Type 2 diabetes mellitus without complications Lipid Panel Today D50.9 - Iron deficiency anemia, unspecified, E11.9 - Type 2 diabetes mellitus without complications Ferritin Today D50.9 - Iron deficiency anemia, unspecified, E11.9 - Type 2 diabetes mellitus without complications Basic Metabolic Panel Fasting Today D50.9 - Iron deficiency anemia, unspecified, E11.9 - Type 2 diabetes mellitus without complications
[2025-04-02 08:39] VITALS: BP 118/62; PULSE 75; O2SAT 98; BMI 27.5
--- OUTSIDE RECORDS SUMMARY | 2025-04-02 08:39 | XMS_ITS | Clinical Summary ---
Author Organization [employer] Address [address] [place] [address] [address] [place] [address] Care Team Providers Care Inspector Motor Vehicles Name Role Phone Provider, Not In System Primary Care Provider Un available Allergies Active Allergy Reactions Criticality Noted Date Comments Oxycodone Hives 07/05/2022 Medications D3-50 1.25 MG (57490 UT) capsule Take 50,000 Units by mouth 1 (one) time per week. 3 Active escitalopram (Lexapro) 20 MG tablet TAKE 1 TABLET (20 MG) BY MOUTH EVERY DAY 3 Active ferrous sulfate 325 (65 Fe) MG tablet 3 Active hydrOXYzine HCl (Atarax) 25 MG tablet Take 25 mg by mouth if needed in the morning, at noon, in the evening, and at bedtime. 3 Active meloxicam (Mobic) 15 MG tablet 3 Active Continuous Blood Gluc Sensor (FreeStyle Jonn 2 Sensor) miscIndication s:Type 2 diabetes mellitus without complication, without long-term current use of insulin ([facility]),BMI 40.0-44.9, adult (CMS/[facility]) (HCC) 1 Units every 14 (fourteen) days. 2 each 3 3 Active Continuous Blood Gluc Vice President Of News (FreeStyle Jonn 14 Day Curlew) deviceIndicati ons:Type 2 diabetes mellitus without complication, without long-term current use of insulin (HCC),BMI 40.0-44.9, adult (CMS/HCC) (HCC) 1 Units every 14 (fourteen) days. 2 each 3 3 Active Liraglutide -Weight Management (Saxenda) 18 MG/3ML solution pen-injector INJECT 0.6MG SUBCUTANEOUSLY DAILY IN MORNING FOR 7 DAYS THEN 1.2MG DAILY X 7 THEN 1.8MG EVERY MORNING 3 mL 3 4 Active Active Problems Problem Noted Date Diagnosed Date Severe obesity ([facility]) 04/25/2023 024 Type 2 diabetes mellitus 04/25/2023 024 Morbid obesity with BMI of 40.0-44.9, adult ([facility]) 07/05/2022 04/25/2023 Overview (04/25/2023): Last Assessment & Plan: This is a 32-year-old woman who underwent laparoscopic sleeve gastrectomy with an outside surgeon at [facility] a few years ago with poor weight loss. She decided to try our program to help get back on track in terms of weight loss. She has been in our program several months without any significant weight loss. She gained a couple pounds and has lost 1.4 pounds in the past 6 to 8 weeks. She was placed on a pouch reset by the dietitian and restarted exercises last week. She reports she feels satisfied with the meal plans and is scheduled to restart 2 meal replacements and 2 meals tomorrow. She reports exercising 3 times per week for the past week. I do not believe our program can offer the patient any significant help with her weight loss. She would likely be a good candidate for antiobesity medications. I will refer her to Dr. Hortencia Meredith to discuss medications. The patient should return to our office on an as-needed basis. She is to continue the current eating plan and exercise plan until she has a consultation with obesity medicine. Immunizations Immunization Administration Dates Next Due Influenza Injectable Quadriv alant Preservative Free IIV4 MDCK 01/13/2023 Social History Tobacco Use Types Packs/Day Years Used Date Smoking Tobacco: Never Smokeless Tobacco: Never Tobacco Cessation:Counseling Given: Not Answered Alcohol Use Standard Drinks/Week Comments Never 0 (1 standard drink = 0.6 oz pur e alcohol) Comments Unknown Sex and Gender Information Value Date Recorded Sex Assigned at Female 11/08/2022 10:27 AM EDT Legal Sex Female 10:26 AM EDT Gender Identity Female 11/08/2022 10:27 AM EDT Sexual Orientation Something else 11/08/2022 10 :27 AM EDT Last Filed Vital Signs Vital Sign Reading Time Taken Comments Blood Pressure 120/84 2023 11:33 AM EST Pulse 74 2023 11:33 AM EST Temperature 36.1 C (97 F) 2023 11:33 AM EST Respiratory Rate 16 2023 11:33 AM EST Oxygen Saturation - - Inhaled Oxygen Concentration - - Weight 114 kg (252 lb) 04/24/2023 10:12 AM EST Height 162.6 cm (5' 4 ) 04/24/2023 10:12 AM EST Body Mass Index 43.26 04/24/2023 10:12 AM EST Plan of Treatment Health Maintenance Due Date Last Done Comments Depression Screening 1992 HIV Screening 1992 Lipid Panel 1992 SDOH Screening 1992 Disability Screening 1992 Diabetes: Foot Exam 2002 Eye Exam 2002 Alcohol/Substance Use Screening 2004 Family Planning (PISQ) 2007 HPV Vaccines (1 - 3-dose series) 2007 Hepatitis C Screening 2010 Diabetes: Urine Protein Screening 2011 Pneumococcal Vaccine: Pediatrics (0 to 5 Years) and At-Risk Patients (6 to 49) Years (1 of 2 - PCV) 2011 Pap Smear 2013 Hepatitis B Vaccines (2 of 3 - 19+ 3-dose series) 09/13/2017 08/16/2017 Cervical Cancer Screening 2022 HPV/Cotest 2022 Tobacco Screening 2024 2023 Diabetes: Hemoglobin A1C 05/08/2024 082 024, 11/06/2023, 07/05/2022 COVID-19 Vaccine ( - season) 2024 02/08/2021, 04/27/2020, 04/06/2020 Influenza Vaccine (#1) 2024 3, 01/08/2021, 01/08/2021, Additional history exists DTaP/Tdap/Td Vaccines (4 - Td or Tdap) 01/16/2027 01/16/2017, 11/03/2015, 10/13/2015 Zoster Vaccines (1 of 2) 2042 RSV Patients and Patients Aged 60 years or older (1 - 1-dose 75+ series) 2067 HIB Vaccines Aged Out No longer eligi ble based on patient's age to complete this topic Hepatitis A Vaccines Aged Out No long er eligible based on patient's age to complete this topic IPV Vaccines Aged Out No longer eligi ble based on patient's age to complete this topic Meningococcal B Vaccine Aged Out No l onger eligible based on patient's age to complete this topic Meningococcal Vaccine Aged Out No merari pedro eligible based on patient's age to complete this topic RSV under 20 months Aged Out No longe r eligible based on patient's age to complete this topic Rotavirus Vaccines Aged Out No longer eligible based on patient's age to complete this topic Procedures Procedure Name Priority Date/Time Associated Diagnosis Comments HEMOGLOBIN A1C Routine 11/06/2023 from Last 3 Months or Most Recently Relevant to Health Maintenance Results * (ABNORMAL) Hemoglobin A1c (11/06/2023) Hemoglobin A1C 6.2(A) 4.0 - 6.0 % Blood Venous blood specimen / Unknown [facility] Provider LAB BLOOD ORDERABLES Mimi l Result from Last 3 Months or Most Recently Relevant to Health Maintenance Insurance [facility] Care Teams Inspector Motor Vehicles Relationship Specialty Start Date End Date Provider, Not In System PCP - General Family Medicine 01/25/23
--- OUTSIDE RECORDS SUMMARY | 2025-04-02 08:39 | XMS_ITS | Patient Health Record ---
Author Organization [facility] Address [address] [place] [address] Care Team Providers Care Tag Machine Operator Name Role Phone Parul Matute MD Primary Care Provider Shmuel Aleman Unavailable [phone] Reason For Referral No Information Medications Medication [...] Insured Coverage Start Date Coverage End Date [facility] [address] [place] [address] [id number] Aimee Peralta Natural Child - Insured does not have Financial Responsibility (includes legally adopted child) Medical (General) History Medical History History ICD Code Anemia asthma Diabetes mellitus Surgical History Surgery Date(Month/Year) section x 2
--- OUTSIDE RECORDS SUMMARY | 2025-04-02 08:39 | XMS_ITS | Patient Health Record ---
Author Organization [facility] Address [address] [place] [id number] Care Team Providers Care Inclusion Teacher Name Role Phone Tess Loaiza Unavailable [phone] Allergies Allergen (clinical drug ingredient) Drug/Non Drug Allergy documented on EMR Reaction Allergy Type Onset Date Status oxycodone Oxycodone Unknown Drug Allergy Active Reason For Referral Reason peroneal tendinitis of right lower extremity Diagnosis 1 Peroneal tendinitis of right lower extremity (M76.71) Referral Organization [facility] Referring Provider First Name Tess Referring Provider Last Name Fadia Referring Provider Speciality Podiatry Referred Provider Specialty Physical The rapist Referral Priority Routine Medications Medication SIG (Take, Route, Frequency, Duration) Notes Start Date End Date Status Zepbound Active Encounters Encounter Location Date Provider Diagnosis [facility] [address] [place] [address] [id number] 05/22/2024 Tess Loaiza Peroneal tendinitis of right lower extremity M76.71 [facility] [address] [place] [address] [id number] 07/23/2024 Tess Loaiza Peroneal tendinitis of right lower extremity M76.71 Assessments Encounter Date Diagnosis (ICD Code) Assessment Notes Treatment Notes Treatment Clinical Notes Section Notes 05/22/2024 Peroneal tendinitis of right lower extremity (ICD-10 - M76.71) We discussed about peroenal tendinitis diagnosis and her 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 -She has edema at the styloid process so i recommended treating her inflammation first with steroid medication 10 mg per day for 10 days to see if it helps.We discussed about the side effects of the medicatiopn. -Will repeat X-Rays because it has been 6 months since the last one -We discussed about icing daily for 20 min for 2 weeks -I educated her on proper shoe gear and also inserts and i showed her which powersteps to get. 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 -She has edema at the styloid process so i recommended treating her inflammation first with steroid medication 10 mg per day for 10 days to see if it helps.We discussed about the side effects of the medication. - recommends alwyas wearing something with a closed toe and heel closed to support her ankle in addition to her inserts - since pt has been struggling with her problem for years, dr recommends PT - dr recommends getting an MRI done along with PT and her inserts to help with treating the chronic problem and to rule out tear 07/23/2024 Other Plan Of Treatment Pending Test Test Name Order Date MRI : Foot, right 07/23/2024 X ray : Foot, right 3v 05/22/2024 Insurance Providers Payer Name Payer Address Payer Phone Subscriber Number Group Number Insured Name Patient Relationship to Insured Coverage Start Date Coverage End Date [facility] [address] [address] [place], [place] [id number] Falguni Cerda Self - patient is the insured Medicaid-[facility] (Medicaid) [address] [place] [address] [id number] Falguni Cerda Self - patient is the insured Medical (General) History Medical History History ICD Code diabetes type 2, controlled Surgical History Surgery Date(Month/Year) gastric sleeve gall bladder removal 6 [facility]arians
--- OUTSIDE RECORDS SUMMARY | 2025-04-02 08:39 | XMS_ITS | Clinical Summary ---
Author Organization [address] [facility] Address [address] [place] [address] Phone Care Team Providers Care Regional Operations Manager Name Role Phone Kaykay Maxwell MD Primary Care Provider Allergies Active Allergy Reactions Criticality Noted Date Comments Oxycodone Itching,Hives 07/05/2022 pt prefers not to get oxycodone it causes to much itching Medications No known medications Active Problems Problem Noted Date Diagnosed Date Abdominal pannus 03/24/2025 Macromastia 03/24/2025 Chronic neck and back pain 03/24/2025 Intertrigo 03/24/2025 Encounters Date Type Department Care Team Description 03/24/2025 11:00 AM EST Consult [facility] - [place] [address] [address] Tiffany Keen PA Abdominal pannus (Primary Dx); Macromastia; Chronic neck and back pain; Intertrigo from Last 3 Months Social History Tobacco Use Types Packs/Day Years Used Date Smoking Tobacco: Never Smokeless Tobacco: Never Tobacco Cessation:Counseling Given: Not Answered Alcohol Use Standard Drinks/Week Comments Never 0 (1 standard drink = 0.6 oz pur e alcohol) Comments Unknown Sex and Gender Information Value Date Recorded Sex Assigned at Not on file Legal Sex Female 10:03 AM EST Gender Identity Not on file Sexual Orientation Not on file Last Filed Vital Signs Vital Sign Reading Time Taken Comments Blood Pressure 135/80 03/24/2025 10:43 AM EST Pulse 61 03/24/2025 10:43 AM EST Temperature - - Respiratory Rate - - Oxygen Saturation - - Inhaled Oxygen Concentration - - Weight 71.5 kg (157 lb 9.6 oz) 03/24/2025 10:43 AM EST Height 159.4 cm (5' 2.75 ) 03/24/2025 10:[address] Body Mass Index 28.14 03/24/2025 10:43 AM EST Plan of Treatment Scheduled Procedures Name Priority Associated Diagnoses Date/Ti me PANNICULECTOMY Abdominal pannus Macromastia Chronic neck and back pain Intertrigo MAMMOPLASTY REDUCTION Abdominal pannus Macromastia Chronic neck and back pain Intertrigo Health Maintenance Due Date Last Done Comments Diabetes: Annual Foot Exam 2002 Diabetes: Annual Retina Eye Exam 2002 Cervical Cancer Screening: Pap Smear 2013 Hepatitis B Vaccines (2 of 3 - 19+ 3-dose series) 09/13/2017 08/16/2017 HPV Vaccines (1 - 3-dose SCDM series) 2019 Depression Screening 04/03/2024 Diabetes: Annual GFR (Glomerular Filtration Rate) 11/05/2024 11/06/2023, 07/05/2022 COVID-19 Vaccine ( season) 2024 02/08/2021, 04/27/2020, 04/06/2020 Influenza Vaccine (#1) 2024 3, 01/08/2021, 01/15/2019, Additional history exists Diabetes: Annual Urine Albumin-Creatinine Ratio (uACR) 02/18/2025 Diabetes: Blood Sugar Control Test (HGBA1C) 02/18/2025 11/06/2023 HIV Screening 02/18/2025 Hepatitis C Screening 02/18/2025 Social Influencers of Health Screening 02/18/2025 DTaP,Tdap,and Td Vaccines (4 - Td or Tdap) 01/16/2027 01/16/2017, 11/03/2015, 10/13/2015 Cholesterol Screening (Lipid Panel) 11/05/2028 11/06/2023 RSV Immunization Adult Patients (1 - 1-dose 75+ series) 2067 HIB Vaccines Aged Out No longer eligi ble based on patient's age to complete this topic Hepatitis A Vaccines Aged Out No long er eligible based on patient's age to complete this topic IPV Vaccines Aged Out No longer eligi ble based on patient's age to complete this topic MMR Vaccines Aged Out No longer eligi ble based on patient's age to complete this topic Meningococcal ACWY Vaccine Aged Out N o longer eligible based on patient's age to complete this topic Meningococcal B Vaccine Aged Out No l onger eligible based on patient's age to complete this topic Pneumococcal Vaccine: Pediatrics (0 to 5 Years) and At-Risk Patients (6 to 49 Years) Aged Out No longer eligible based on patient's age to complete this topic RSV Immunization Patients Under 20 months Aged Out No longer eligible based on patient's age to complete this topic Varicella Vaccines Aged Out No longer eligible based on patient's age to complete this topic Goals Goal Patient Goal Type Associated Problems Recent Progress Patient-Stated? Author Autogenerat ed Goal Care Plan Autogenerated Problem No Tiffany Keen PA Additional Health Concerns Active Problems Noted Date Diagnosed Date Autogenerated Problem 03/24/2025 Insurance [place]ICAID - [place] [facility] Care Teams Regional Operations Manager Relationship Specialty Start Date End Date Kaykay Maxwell MD [address] [place] [address] PCP - General Internal Medicine 02/18/25
--- OUTSIDE RECORDS SUMMARY | 2025-04-02 08:39 | XMS_ITS | Clinical Summary ---
Author Organization [facility] Address [address] [place] [id number] Phone Care Team Providers Care Green House Manager Name Role Phone Kaykay Maxwell MD Primary Care Provider Allergies Active Allergy Reactions Criticality Noted Date Comments Oxycodone Hives 07/05/2022 Medications cholecalciferol (VITAMIN D3) 50,000 unit capsuleIndicatio ns:Vitamin D deficiency Take 1 capsule (50,000 Units total) by mouth once a week. 12.85 capsule 1 4 Active Additional Information Patient not taking.Reported on 02/05/2025 cetirizine (ZYRTEC) 10 MG tablet 5 Active tirzepatide (MOUNJARO) 15 mg/0.5 mL PnIj subcutaneous penIndications:T ype 2 diabetes mellitus without complication, without long-term current use of insulin,Overweig ht (BMI 25.0-29.9) Inject 0.5 mL (15 mg total) under the skin every 7 days. 2 mL 2 5 Active ketoconazole 2 % creamIndications :Excess skin of abdomen Apply once daily to affected skin until 1 week after rash resolves 30 g 5 Active Active Problems Problem Noted Date Diagnosed Date Excess skin of abdomen 02/05/2025 Assessment & Plan (02/05/2025 3:12 PM EST): Due to weight loss. Recurrent intertrigo. Given referral to plastic surgery to discuss tummy tuck. Keep skin clean & dry. Continue absorbent powder. Ketoconazole cream for intertrigo if rash recurs. Intestinal malabsorption following gastrectomy 0 11/06/2023 Vitamin D deficiency 07/26/2023 Assessment & Plan (07/26/2023 8:33 AM EDT): Continue vitamin D supplement. Will recheck level at next visit. Iron deficiency 07/26/2023 Overview (07/26/2023): On iron infusions S/P gastric sleeve procedure 05/24/2023 Type 2 diabetes mellitus 05/24/2023 Overview (06/21/2023): Could not tolerate metformin due to diarrhea and vomiting. Assessment & Plan (10/22/2024 2:52 PM EDT): Continue tirzepatide Assessment & Plan (07/26/2023 8:32 AM EDT): Tolerating liraglutide well. Plan to increase dose for obesity treatment so changing her to brand Saxenda Assessment & Plan (06/21/2023 2:34 PM EDT): Insurance denied sap bound, Milton Casas. Will try Victoza Assessment & Plan (05/24/2023 3:11 PM EST): Reports her last A1c was 6.6. She will have labs sent. We will start Mounjaro for dual benefit for diabetes type 2 and obesity. She was previously on metformin but needed to discontinue it due to GI side effects. Moderate episode of recurrent major depressive d isorder 05/24/2023 Assessment & Plan (11/29/2023 4:28 PM EDT): Sad & frustrated during visit today. Negative self image. Feels disrespected. Per chart review stopped lexapro several months ago. I expressed my concern about her depression. I did recommend addition of wellbutrin for AOM effect but also hopefully will benefit mood. Assessment & Plan (05/24/2023 3:09 PM EST): She is on Lexapro. She is feeling discouraged and struggling with her negative relationship with her body. Consider addition of Wellbutrin. Encourage counseling. Overweight (BMI 25.0-29.9) 07/05/2022 Overview (06/18/2024): Prior to AOM WHO class 3, AACE stage 1 Assessment & Plan (02/05/2025 3:11 PM EST): She will continue 15 mg mounjaro. If loses below 140 I recommend dose decrease. I want her to increase calorie intake & resistance training. Assessment & Plan (10/22/2024 2:51 PM EDT): Continue tirzepatide 15 mg. She has [facility] but they approved recent prescription. She does have diabetes diagnosis so she could be changed to Mounjaro brand if needed. I asked her to resume exercise as soon as she is cleared by her seam closer. She needs to work on adding more vegetables and calories. Follow- up with me in 3 months. Assessment & Plan (06/18/2024 4:23 PM EDT): Increase Zepbound to 15 mg. Work on increasing exercise. Assessment & Plan (03/13/2024 4:26 PM EST): She needs to start taking vitamins as recommended. I refilled vitamin D for her. Encouraged her to restart the strength training. Her insurance now prefers Zepbound so I have sent 7.5 mg for her to switch over to. Continue high-protein diet Assessment & Plan (03/13/2024 4:22 PM EST): >>ASSESSMENT AND PLAN FOR CLASS 2 OBESITY DUE TO EXCESS CALORIES WITHOUT SERIOUS COMORBIDITY WITH BODY MASS INDEX (BMI) OF 38.0 TO 38.9 IN ADULT WRITTEN ON 11/06/2023 10:44 AM BY CASSIDY WOMACK MD This is a 33-year-old woman who had seen me for medical weight loss a year ago and then switched to our nurse practitioner in the medical weight loss program. She has been on Saxenda since June and has lost 20 pounds which is great weight loss. The patient is unhappy with her weight loss I believe she should be losing a lot faster and she reports she is tired of being fat. Patient has diabetes but it is relatively well-controlled. She has started exercising but is not very consistent in terms of increasing intensity and adding weight to her regimen. I have asked her to add walking on an incline on the treadmill for 30 minutes alternating walking flat at 3 mph for 2 minutes and walking up an incline at 7 at 3 mph for total of 30 minutes. I have also asked her to do 15 to 20 minutes of strength training 2 times per week I recommend the patient continue seeing the nurse practitioner for medications on a every 3-month basis. She should see the dietitian in 2 weeks and follow-up with me again in 5 weeks timeframe. I do not believe that conversion to a gastric bypass is the answer for this patient as she is already doing well with the mixture of lifestyle changes and Saxenda. She will continue current medications as reviewed. She is not stable and is considered obese. Assessment & Plan (03/13/2024 4:22 PM EST): >>ASSESSMENT AND PLAN FOR CLASS 2 OBESITY DUE TO EXCESS CALORIES WITHOUT SERIOUS COMORBIDITY WITH BODY MASS INDEX (BMI) OF 38.0 TO 38.9 IN ADULT WRITTEN ON 11/29/2023 4:28 PM BY AVA ARCHER CNP We have tried repeatedly for coverage of tirzepatide & semaglutide. She is approved for liraglutide. She can continue that, or stop it if she wishes. Anticipate regain of weight if she stops GLP1RA. We can try again for semaglutide because she has lost no further eight since her last visit. I also recpommend addition for Bupropion/Wellbutrin. I have explained that this medication works by decreasing appetite and cravings and is also helpful for depression This medication has an associated average wt loss of 6% of less with emt intermediate use (Dimple Topete et.al. June 2022) I have reviewed the following possible side effects: insomnia, dizziness, anxiety, GI upset. FU 3 mos Assessment & Plan (12/26/2023 4:34 PM EDT): This is a 33-year-old woman who is in our medical weight loss program in order to resume weight loss. The patient has a history of a sleeve gastrectomy that was performed at outside facility. She is doing relatively well with weight loss. She was recently changed to Wegovy from Saxenda about 4 weeks ago. The patient is not getting enough protein and is only getting about 40 to 50 g of protein on a daily basis. The patient should get somewhere between 70 to 80 g of protein on a daily basis. I have asked her to increase her protein by adding a protein shake to her current eating plan. She also has hair shedding which should improve with increased protein. I have also asked her to take a bariatric vitamin which she is not doing and to add 10,000 units of biotin to her current vitamin regimen. She will continue current exercise and add back strength training when she is able to after having undergone a right carpal tunnel surgery. She will follow-up with me again in 6 weeks timeframe. She is not stable and is considered obese. Assessment & Plan (09/06/2023 4:17 PM EDT): We spoke about her concerns that she is not losing weight quickly enough. She is working very hard on diet. We will increase Saxenda to 3 mg. Next month if she still feels this medication is not effective we will try again for approval of Ozempic Assessment & Plan (07/26/2023 8:32 AM EDT): She is doing well on liraglutide however she has reached the maximum dose with the Victoza formulation. I recommend we continue to titrate her up which means we we will need to change her to Saxenda which we can dose up to 3 mg. Continue dietary plan and follow-up in 6 weeks Assessment & Plan (06/21/2023 2:34 PM EDT): She is adhering to meal plan but has not been able to lose weight. Her insurance denied tirzepatide and semaglutide. We will try for liraglutide with brand-name Victoza as she also has diabetes. She cannot take metformin due to history of side effects. She has been working on weight loss efforts for greater than 6 months. She is status post sleeve gastrectomy. Assessment & Plan (05/24/2023 3:10 PM EST): Pt was educated on the pathophysiology of obesity, which is a chronic, relapsing, often progressive neuroendocrine disease with behavioral components. We discussed treatment approaches including lifestyle changes, pharmacotherapy & bariatric surgery. We discussed their personal treatment goals. We discussed targeting a weight loss goal of 5-10% over the next 6 months as this modest amount of weight loss has been shown to decrease blood pressure, insulin resistance, sleep apnea, liver inflammation, arthritic pain and improve dyslipidemia. She reports recently having labs done and she will sign a record release Patient was given the following initial meal plan recommendations:A protein shake or a protein bar or Norwegian yogurt or cottage cheese to be consumed at breakfast and mid afternoon daily. 4 -6 ounces of protein with 6 ounces of vegetables or small salad with a noncreamy salad dressing of not more than 2 tablespoons at lunch and dinner daily. At dinner the patient may half 1/2 cup of carbohydrate. A small protein based snack or serving of fruit may also be consumed 2-3 hours after dinner. They should aim to drink 64 oz of water daily. I recommend they not regularly drink soda, juice, alcohol, high calorie caffeinated beverages. We discussed the innumerable benefits of daily exercise. I recommend patient work with our dietitian and movement specialist, Arabella Caldwell RD and have asked them to schedule an appt. I have recommended the following Anti-Obesity Medication: Terzepatide/ Mounjaro They will start at 2.5 mg q week x 4 wk The patient has completed > 6 months of efforts focused on dietary and lifestyle changes and has been unsuccessful in reaching their weight loss goals. I have explained that this medication targets some of the underlying neurohormonal dysregulations that cause weight gain & prevent sustained weight loss, decreases appetite & increases feeling of fullness. I have reviewed the following possible side effects: injection site reactions, Nausea, vomiting, constipation, gastroparesis, SBO, pancreatitis, increased risk of medullary thyroid cancer, increased risk of MEN2, suicidal thoughts, low blood sugar This medication is not recommended in and in patients with a personal or family history of medullary thyroid cancer or multiple endocrine neoplasia 2A or 2B. We also discussed health insurance inflicted barriers to obtaining GLP1RA and possible need for prior authorization & appeal Assessment & Plan (11/08/2022 10:30 AM EDT): This is a 32-year-old woman who underwent laparoscopic sleeve gastrectomy with an outside surgeon at [facility] a few years ago with poor [...] she has a consultation with obesity medicine. Assessment & Plan (09/27/2022 10:41 AM EDT): This is a 40-year-old woman who has a history of sleeve gastrectomy after which point she lost very minimal amount of weight. She is now coming to our program to get help to get back on track in terms of weight loss. She reports following the eating plan and exercise plan and water intake but has gained almost 3 pounds since she was last seen by me. I have asked the patient to incorporate the half cup of carbohydrate every day and a piece of fruit throughout the day. I have asked patient to increase her intensity of exercise as her interval training does not appear to be increasing her heart rate. I have asked the patient to do 1 minute intervals where she is doing strenuous work and have a 30 second recovery and do that for 30 to 45 minutes 4- 5 times weekly. She is doing resistance band training and have asked the patient to do this 20 to 30 minutes following a video 3 times a week. She should continue current water intake and she will follow-up with the dietitian in 2 and 4 weeks and follow-up with me in 6 weeks timeframe. She will continue current medications as reviewed. She is not stable and is considered morbidly obese. Assessment & Plan (08/19/2022 9:43 AM EDT): This is a 32-year-old woman who is interested in getting back on track in terms of exercise and eating plan status post laparoscopic sleeve gastrectomy several years ago at [facility]. Patient has lost 5.6 pounds in the past month. She had some difficulty sticking to the eating plan but is doing better now. She is exercising about 5 times a week only doing cardiovascular exercise walking on the treadmill at a incline but will add some resistance training. 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 The patient will continue water intake and current eating plan. She will follow-up with me again in 4 weeks timeframe. She is not stable and is considered morbidly obese. Assessment & Plan (07/05/2022 10:14 AM EDT): This is a 32-year-old woman who underwent a laparoscopic sleeve gastrectomy at an outside facility the patient and lost a moderate amount of weight only to put the weight back on when she stopped following up and stopped exercising and following the eating plan. The patient is here to get restarted on the eating plan and exercise plan. She does not believe nor do I that she needs another surgical procedure. We discussed the risk benefits and alternatives of converting her sleeve gastrectomy to [place]-en-Y gastric bypass. She has an increased surgical risk given that she already has a weight loss procedure in place. I have ordered blood work to evaluate all her nutritional levels and labs. I have given her the eating plan which will be inclusive of 2 meal replacements per day at 9 AM and 3 PM which will be 2 eggs or a protein bar or protein shake or Norwegian yogurt or cottage cheese. She will consume 2 meals of 4 ounces of protein with 6 ounce of vegetables or small salad with not more than 2 tablespoons of a noncreamy salad dressing at 12 PM and 6 PM every day. She may have 1/2 cup of carbohydrate with dinner. At 8 PM she may have an optional piece of fruit which is an apple, 2 kiwis, a pear, or 1 cup of berries. She must stop eating by 8 PM. She was told she can have 1 treat meal per week if desired. She must exercise at least 40 minutes 4 times weekly. I have asked her to do 20 minutes of strength training at least 3 times weekly and perform this first before performing 20 to 30 minutes of cardiovascular exercise following it. She should increase her water intake to at least 64 ounces of water on a daily basis. She will continue current medications as reviewed. I did discuss the increased risk of weight gain with the SSRI that she is currently taking for her depression. She will see the dietitian in 2 weeks and she will follow-up with me again in 4 weeks timeframe. She is not stable and is considered morbidly obese. I spent 53 minutes with this patient which included documentation. Resolved Problems Problem Noted Date Diagnosed Date Resolved Date Preoperative examination 07/05/2022 Encounters Date Type Department Care Team Description 02/14/2025 Telephone [facility] [address] [place] [address] [place] [address] Theresa Bee CMA 02/05/2025 3:00 PM EST Office Visit [facility] [address] [place] [address] [place] [address] Ava Archer CNP Overweight (BMI 25.0-29.9) (Primary Dx); Type 2 diabetes mellitus without complication, without long-term current use of insulin; Excess skin of abdomen 01/08/2025 Refill [facility] [address] [place] [address] Theresa Bee CMA Medication Refill from Last 3 Months Immunizations Immunization Administration Dates Next Due COVID-19, Unspecified Formulation 02/08/2021,,04/06/2020 Hepatitis B Adult 08/16/2017 Influenza, Unspecified Formulation 01/13,01/08/2021,01/15/2019,01/18/20 18,01/16/2017,01/14/2016,03/05/2013 Tdap 01/16/2017,11/03/2015,10/13/2015 Family History Medical History Relation Comments Asthma Father COPD Father Heart disease Father COPD Maternal Grandfather Diabetes type II Maternal Grandmother Hypertension Mother Heart disease Paternal Grandfather Kidney disease Paternal Grandmother Relation Status Comments Brother 1 Alive Brother 2 Alive Brother 3 Alive Father Alive Maternal Grandfather Maternal Grandmother Alive Mother Alive Paternal Grandfather Alive Paternal Grandmother Alive Sister Alive Social History Tobacco Use Types Packs/Day Years Used Date Smoking Tobacco: Never Smokeless Tobacco: Never Tobacco Cessation:Counseling Given: Not Answered Alcohol Use Standard Drinks/Week Comments Not Currently 0 (1 standard drink = 0.6 oz pur e alcohol) rare cocktail Education Answer Date Recorded Are you interested in more education? Not on debra e 07/28/2022 Are you concerned about learning? Not on file 07/28/2022 No 07/28/2022 No 07/28/2022 Digital Access Answer Date Recorded No 08/27/2022 No 08/27/2022 Reliable internet access at home? Not on file 08/27/2022 Device with a working camera? 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 Not on file Not on file Not on file Last Filed Vital Signs Vital Sign Reading Time Taken Comments Blood Pressure 102/64 02/05/2025 2:00 PM EST Pulse 95 02/05/2025 2:00 PM EST Temperature 36.6 C (97.8 F) 02/05/2025 2:00 PM EST Respiratory Rate - - Oxygen Saturation 98% 02/05/2025 2:00 PM EST Inhaled Oxygen Concentration - - Weight 71.8 kg (158 lb 3.2 oz) 02/05/2025 2:00 P M EST Height 162.6 cm (5' 4.02 ) 02/05/2025 2:00 PM ES T Body Mass Index 27.14 02/05/2025 2:00 PM EST Plan of Treatment Upcoming Encounters Date Type Department Care Team (Late st Contact Info) Description 05/23/2025 1:15 PM EST Office Visit [facility] [address] [place] [address] Ava Archer, KRISTINA [address] [facility], [address]nd [place] [address] 09/01/2025 9:00 AM EDT Office Visit [facility] Plastic Surgery [facility] [address] [place] [address] Prabhu Castillo MD 40 [facility], [address] [address] [email or web address] Health Maintenance Due Date Last Done Comments DEPRESSION SCREENING 2004 HEPATITIS C SCREENING 2010 HIV ONE-TIME SCREENING (18-65 YEARS) 2010 PNEUMOCOCCAL VACCINES (0-49 years) (1 of 2 - PCV) 2011 PAP SMEAR 2013 DIABETIC EYE EXAM 05/24/2023 URINE MICROALBUMIN/CREATININE RATIO 05/24/2023 HEMOGLOBIN A1C 05/08/2024 11/06/2023, 08/0 08/2023, 07/05/2022 INFLUENZA VACCINE (#1) 2024 , 01/08/2021, 01/15/2019, Additional history exists LIPID PANEL 11/05/2024 11/06/2023, 07/05/2022 COVID-19 VACCINE ( season) 2024 02/08/2021, 04/27/2020, 04/06/2020 BLOOD PRESSURE 08/05/2025 02/05/2025 Adult Td,Tdap Booster 01/16/2027 01/16/2017 , 11/03/2015, 10/13/2015 SMOKING STATUS SCREENING (Once After 26 Yrs) Completed 02/05/2025 HEPATITIS A VACCINES Aged Out No long er eligible based on patient's age to complete this topic HIB VACCINES Aged Out No longer eligi ble based on patient's age to complete this topic MENINGOCOCCAL VACCINES (ACWY) Aged Out No longer eligible based on patient's age to complete this topic MENINGOCOCCAL VACCINES (B) Aged Out N o longer eligible based on patient's age to complete this topic Medical Devices Not on file Procedures Procedure Name Priority Date/Time Associated Diagnosis Comments HEMOGLOBIN A1C Routine 11/06/2023 11:00 AM EDT Type 2 diabetes mellitus without complication, without long-term current use of insulin LIPID PANEL Routine 11/06/2023 11:00 AM EDT Type 2 diabetes mellitus without complication, without long-term current use of insulin from Last 3 Months or Most Recently Relevant to Health Maintenance Results * (ABNORMAL) Hemoglobin A1c (11/06/2023 11:00 AM EDT) HEMOGLOBIN A1C 6.2(H) 4.3 - 5.8 % [facility] Blood 11/06/2023 11:0 0 AM EDT 11/06/2023 11:03 AM EDT Cassidy Womack MD LAB BLOOD BKR ORDERABLES F inal Result [facility] [address] [place] [address] * (ABNORMAL) Lipid panel (11/06/2023 11:00 AM EDT) HDL 40 mg/dL [facility] Comment: Interpretation <40 mg/dL: Low HDL cholesterol (major risk factor for CHD) Greater than or equal to 60 mg/dL: High HDL cholesterol ( negative risk factor for CHD) HDL - cholesterol is affected by a number of factors, e.g. smoking, excerise, hormones, sex and age. CHOLESTEROL 211 0 - 240 mg/dL [facility] TRIGLYCERIDES 157 30 - 160 mg/dL [facility] LDL 140(H) 50 - 129 mg/dL [facility] Comment: LDL levels in terms of risk for coronary heart disease: <100 mg/dL: Optimal 100-129 mg/dL: Near or above optimal 130-159 mg/dL: Borderline high 160-189 mg/dL: High >190 mg/dL: Very High CARDIAC RISK RATIO 5.3(H) 3.3 - 4.4 C [facility] Blood 11/06/2023 11:0 0 AM EDT 11/06/2023 11:03 AM EDT us Cassidy Womack MD LAB BLOOD BKR ORDERABLES F inal Result [address] [phone] from Last 3 Months or Most Recently Relevant to Health Maintenance [place] [facility] Address: [id number] [place] [address] O Member Subscriber Plan / Payer (Ef fective 2024-Present) Name:Falguni Torrez Relation to Subscriber:Self Name:Falguni Torrez Payer ID:Not on file Type:O [address] [facility] [address] [facility] Care Teams Green House Manager Relationship Specialty Start Date End Date Kaykay Maxwell MD [address] [place] [address] PCP - General Internal Medicine 10/12/23 Additional Source Comments The information contained in this document represents components of the legal health record. It is not the complete legal health record.[facility]
== END 2025-04-02 09:21 | disposition home or self-care (01) ==
LOC: HO.HMCC 08:36
PROVIDERS: PCP Internal Medicine; Visit Provider Internal Medicine
DX: Z13.9 Encounter for screening, unspecified (principal)